=== PATIENT | male | born 1960 | race Caucasian/White ===

== ENCOUNTER 2016-11-08 10:50 | Emergency (ER) | payer MEDICARE, OTHER ==
[~2016-11-08] VITALS: Ht 167.6 cm; Wt 87.5 kg
[~2016-11-08 10:50] MED LIST: ASPI325T32 PO; CLON0.5T4 PO; LEVEM SC; LISI20TA11 PO; METO100T13 PO; PANT40TA3; PIOG1TAB9; SIMV40TA2 PO
[2016-11-08 10:55] VITALS: Ht 167.6 cm; Wt 87.5 kg
--- NOTE | 2016-11-08 11:42 | ERD ---
ER Documentation Chief Complaint Date/Time DATE: 11/08/16 TIME: 11:39 Chief Complaint nontraumtic l knee pain for past 2 days, "my knee gave out" -swelling, HPI Patient is a 56-year-old male who presents with 1 day of sudden onset, intermittent, sharp lateral lower left leg pain causing his leg to "give out" on numerous occasions while he tries to walk. The patient denies weakness to the leg, states that he is able to take several normal steps before he feels a sharp shooting pain and the leg gives out. He denies trauma, numbness, swelling. Patient denies any symptoms in the upper extremity. Patient started using a cane to help with ambulation. He currently has no pain in the leg and denies any weakness or numbness. ROS All systems reviewed and are negative except as per history of present illness. Medications Home Meds Reported Medications Insulin Detemir* (Levemir*) 100 U/Ml Vial, 40 UNIT SC DAILY, VIAL 07/28/14 Aspirin* (Aspirin* EC) 325 Mg Tab, 325 MG PO DAILY, TAB 07/28/14 Simvastatin* (Zocor*) 40 Mg Tablet, 40 MG PO HS, TAB 07/28/14 Metoprolol Succinate* (Toprol XL*) 100 Mg Tab.sr.24h, 100 MG PO DAILY, TAB 07/28/14 Lisinopril* (Lisinopril*) 20 Mg Tablet, 20 MG PO DAILY, TAB 07/28/14 Clonazepam* (Clonazepam*) 0.5 Mg Tablet, 0.5 MG PO QHS Y for ANXIETY, TAB 07/28/14 Pioglitazone Hcl-Metformin Hcl (Actoplus Met) 1 Tab Tablet 09/03/09 Pantoprazole* (Protonix*) 40 Mg Tablet. 09/03/09 Allergies Allergies: Coded Allergies: No Known Allergies (Verified Allergy, Unknown, 07/28/14) PMhx/Soc Past medical history: Diabetes, coronary artery disease, hypertension, hyperlipidemia Past surgical history: 4 coronary stents, cholecystectomy Social history: Occasional alcohol, no tobacco. History of Surgery: No Anesthesia Reaction: No Hx Neurological Disorder: No Hx Respiratory Disorders: No Hx Cardiac Disorders: Yes (HTN) Hx Psychiatric Problems: No Hx Miscellaneous Medical Probl: No Hx Alcohol Use: Yes Hx Substance Use: No Hx Tobacco Use: No FmHx Family History: coronary disease, diabetes Physical Exam Vitals Vital Signs Date Time Temp Pulse Resp B/P Pulse Ox O2 Delivery O2 Flow Rate FiO2 11/08/16 10:55 98.7 92 18 164/94 98 Physical Exam Const: Alert, no acute distress Head: Atraumatic Eyes: Normal Conjunctiva, no pallor, no icterus ENT: Normal External Ears, Nose and Mouth. Mucous membranes moist Neck: Full range of motion..~ No meningismus. Resp: Clear to auscultation bilaterally, no wheezes, no rales Cardio: Regular rate and rhythm, no murmurs Abd: Soft, non tender, non distended. Normal bowel sounds Skin: No petechiae or rashes Back: No midline or flank tenderness Ext: No cyanosis, or edema, no calf tenderness, no point tenderness in the left knee or lower leg. No ulcers on the foot. 2+ DP pulse, 2 second cap refill all toes. Neur: Awake and alert, strength 5 out of 5 in all muscle groups in the left lower extremity and left upper extremity. 2+ patellar reflex. Cranial nerves II through XII intact bilaterally. Psych: Normal Mood and Affect Results 24 hrs Laboratory Tests Test 11/08/16 11:52 Bedside Glucose 293mg/dL Procedures/MDM MDM: Patient is a 56-year-old male who reports intermittent shooting pain in his lower leg causing his leg to give out. Episodes are transient, and he denies any persistent weakness of the leg. On exam there is no weakness or numbness. There is no reproducible pain or tenderness. There are no signs of DVT. He has normal neurovascular exam. There are no signs of infection. Patient was observed to ambulate without difficulty using a cane at this time. I believe that he may be having a nerve impingement causing his symptoms. Other consideration is intra-articular pain of the knee causing his leg to give out. His knee exam at this time is unremarkable, so x-ray is not deemed to be necessary, and there is no history of trauma. Patient is an insulin-dependent diabetic, and has elevated glucose. I recommended checking his BMP to look for other electrolyte abnormalities, but the patient refused to wait for this test. He states his blood sugars always over 250 and often as high as 400 to 500. I have advised him to follow-up with his PMD tomorrow, to use an Tim bandage and cane and to take caution with ambulation. There is no indication of a central nervous system because of his gait abnormality. Although his history of poorly controlled diabetes raises possibility of peripheral neuropathy, there are does not appear to be sensory deficit on exam. Departure Diagnosis: Primary Impression: Knee pain Laterality: left Chronicity: acute Qualified Code: M25.562 - Acute pain of left knee Additional Impressions: Gait difficulty Hyperglycemia Condition: Stable RAFAELA ROBISON MD November 08, 2016 11:42
== END 2016-11-08 12:42 | disposition home or self-care (01) ==
LOC: FTE 10:50
DX: M25.562 Pain in left knee (principal); R26.9 Unspecified abnormalities of gait and mobility; E11.65 Type 2 diabetes mellitus with hyperglycemia; I25.10 Atherosclerotic heart disease of native coronary artery without angina pectoris; I10 Essential (primary) hypertension; Z79.4 Long term (current) use of insulin; Z79.82 Long term (current) use of aspirin; Z79.84 Long term (current) use of oral hypoglycemic drugs; Z98.61 Coronary angioplasty status
CPT/HCPCS: 82962; 99282

== ENCOUNTER 2017-04-03 18:40 | Observation (INO) | payer MEDICARE, OTHER ==
[~2017-04-03] VITALS: Ht 162.6 cm; Wt 86.3 kg
[~2017-04-03 18:40] MED LIST changes: +METO-336 PO; -METO100T13 PO
[2017-04-03] MEDS ORDERED: ONDANSETRON (ODT) 4 MG TAB ODT STA (18:42)
[2017-04-03] MEDS ORDERED: HYDROmorphONE 2 MG/ML SYG IM STA (18:42)
--- NOTE | 2017-04-03 19:35 | RADRPT ---
PROCEDURE: XR Chest. CLINICAL INDICATION: Trauma due to a fall. Chest pain. TECHNIQUE: Single frontal view. COMPARISON: 07/28/2014. FINDINGS: The lungs are clear. The heart size is normal. There is no pleural effusion. There is no pneumothorax. IMPRESSION: 1. Normal chest radiograph. 2. No change from 07/28/2014. RPTAT: QQ .Dallin Virk MD, MD Date Time Electronically viewed and signed by .Dallin Virk MD, MD on 04/03/2017 19:35 .R/
--- NOTE | 2017-04-03 19:48 | RADRPT ---
PROCEDURE: CT Brain without contrast. CLINICAL INDICATION: Trauma due to a fall. TECHNIQUE: A CT of the brain without contrast was performed utilizing axial sections from the skul l base through the vertex. The patient was scanned without intravenous contrast enhancement. Sagitta l and coronal reformatted images were obtained using the data from the axial images. Total exam DLP is 630.20 mGy-cm. CTDIvol is 42.30 mGy. One or more of the following dose reduction techniques we re used: Automated exposure control, adjustment of the mA and/or kV according to patient size, use o f iterative reconstruction technique. COMPARISON: None available FINDINGS: There is normal berkowitz-white matter differentiation. The ventricles and cisterns are normal. There is no intracranial hemorrhage or space-occupying lesion. There is no skull fracture or lytic lesion. IMPRESSION: 1. Normal noncontrast CT scan of the brain. 2. No intracranial hemorrhage. RPTAT: QQ .Dallin Virk MD, MD Date Time Electronically viewed and signed by .Dallin Virk MD, on 04/03/2017 19:48 .R/
--- NOTE | 2017-04-03 19:52 | RADRPT ---
PROCEDURE: CT Cervical Spine without contrast. CLINICAL INDICATION: Trauma due to a fall. Neck pain. TECHNIQUE: Helical axial sections were obtained through the cervical spine without intravenous con trast enhancement. Sagittal and coronal reformatted images were accomplished using the data from th e axial images. Total exam DLP is 467.05 mGy-cm. CTDIvol is 22.18 mGy. One or more of the followi ng dose reduction techniques were used: Automated exposure control, adjustment of the mA and/or kV a ccording to patient size, use of iterative reconstruction technique. COMPARISON: No prior studies are available for comparison. FINDINGS: There is normal stature and alignment of the vertebrae. There is no fracture. There are degenerative changes with disc space narrowing and osteophytes at C6-7. There is mild bila teral bony foraminal stenosis at C6-7. There is no lytic or blastic lesion. There is gas dissecting along tissue planes in the soft tissues of the left side of the neck and in the epidural space in the inferior cervical region. This is probably due to a pneumomediastinum or l eft pneumothorax. Correlation with CT scan of chest advised. IMPRESSION: 1. Degenerative changes at C6-7. 2. No fracture. 3. Gas in the soft tissues which may be due to pneumomediastinum or left pneumothorax. Correlation with CT scan of chest advised. RPTAT: QQ .Dallin Virk MD, Date Time Electronically viewed and signed by .Dallin Virk MD, on 04/03/2017 19:51 .R/
--- NOTE | 2017-04-03 19:58 | RADRPT ---
PROCEDURE: CT Abdomen and Pelvis without contrast. CLINICAL INDICATION: Trauma. Abdominal and pelvic pain. TECHNIQUE: CT scan of the abdomen and pelvis without contrast was performed. Coronal and sagittal reformatted images were obtained from the axial source images. Images were reviewed on a high-resolu tion PACS workstation. Total exam DLP is 1206.00 mGy-cm. CTDIvol is 20.12 mGy. One or more of the following dose reduction techniques were used: Automated exposure control, adjustment of the mA and/ or kV according to patient size, use of iterative reconstruction technique. COMPARISON: CT scan of the abdomen and pelvis dated 07/28/2014. FINDINGS: There is a very small left pneumothorax. The lung bases are normal. There is no pleural effusion. Ga s is present in the soft tissues of the left chest wall extending along the left paraspinal muscles inferiorly. There is an acute fracture of the left eighth rib posteriorly. The liver is normal in size and diffusely decreased in attenuation. There is no focal hepatic lesio n. The gallbladder and bile ducts are normal. The spleen is normal in size. There is no focal splenic lesion. Both adrenals are normal with no enlargement or mass. The pancreas is unremarkable with no mass or evidence of pancreatitis. There is no renal mass or hydronephrosis. There is no renal calculus or ureteral calculus. The abdominal aorta is not dilated. There is calcification in the aorta consistent with atherosclero sis. There is no retroperitoneal lymphadenopathy or mass. There is no pelvic lymphadenopathy or mass. The bladder is distended. The distal ureters are normal. The periappendiceal region is unremarkable with no evidence of appendicitis. The bowel and mesentery are normal. There is no free fluid or free gas. There are mild degenerative changes of the spine. The eighth rib fracture is noted. The osseous stru ctures are otherwise unremarkable with no other fracture or lytic lesion. IMPRESSION: 1. Very small left pneumothorax. Correlation with CT scan of chest advised. 2. Gas in the left chest wall and along the paraspinal muscles. 3. Acute fracture of the left eighth rib posteriorly. 4. Atherosclerosis. 5. Distended urinary bladder. 6. Mild degenerative changes of the spine. RPTAT: QQ .Dallin Virk MD, Date Time Electronically viewed and signed by .Dallin Virk MD, on 04/03/2017 19:58 .R/
[2017-04-03] MEDS ORDERED: HYDROmorphONE 1 MG/ML SYG IV STA ×2 (20:11→23:36)
[2017-04-03 21:05] VITALS: TEMP 98.5
[2017-04-03] MEDS ORDERED: morphine 4 MG/ML VIAL IV STA (21:21)
--- NOTE | 2017-04-03 22:59 | RADRPT ---
PROCEDURE: CT CHEST WITHOUT CONTRAST April 03, 2017 at 09:33 p.m. CLINICAL INDICATION: 57-year-old male with trauma. TECHNIQUE: The study was performed utilizing a GE [employer] VCT 64-slice CT scanner. Direct axia l sections were obtained through the chest without the use of intravenous contrast material. Sagitt al and coronal re-formations were obtained. One or more of the following dose reduction techniques w ere utilized: automated exposure control, adjustment of the mA and/or kV according to patient's size or use of iterative reconstruction technique. The images were reviewed on a PACS workstation. CTD /vol = 13.8 mGy; Total Exam DLP = 459.1 mGy-cm. COMPARISON: CT abdomen/pelvis April 03, 2017 at 07:39 p.m. FINDINGS: The aorta is mildly calcified but without aneurysmal dilatation. Marked coronary artery calcificatio ns are visualized. There are small lymph nodes seen within the mediastinum which are not pathologic by size criteria. There is a small inferior pneumomediastinum. There is a minimal left-sided pneumo thorax. There is no evidence for an infiltrate. There is a posterior left eighth rib fracture. There is extensive subcutaneous gas within the left lower neck and along the left posterolateral chest wa ll. Mild degenerative changes are seen within the spine. Scans through the upper abdomen reveals that the upper liver is unremarkable. The adrenal glands hav e a normal appearance. The upper kidneys are without evidence for obstruction. IMPRESSION: 1. Posterior left eighth rib fracture. 2. Minimal left-sided pneumothorax. 3. Pneumomediastinum. 4. Extensive left lower neck and left posterolateral chest wall subcutaneous emphysema. 5. Marked coronary artery calcifications. 6. Mild degenerative changes within the spine. .Aris Kapoor MD, MD Date Time Electronically viewed and signed by .Aris Kapoor MD, MD on 04/03/2017 22:59 .M/
--- NOTE | 2017-04-03 23:22 | ERA ---
ER Documentation Chief Complaint Date/Time DATE: 04/03/17 TIME: 23:20 Chief Complaint pt had mechanical fall 1 hour ago , hit head, no loc back pain 02/04 HPI Patient is a 57-year-old male with coronary disease and diabetes who presents with a slip and fall in the shower. Hit the back of his head. He is complaining of left-sided back pain. He has no loss of consciousness and no vomiting. He was ambulatory at scene. The fall happened 1 hour prior to arrival. He tried Motrin for pain. Upon review of old medical records this is the patient's eighth visit to the ER since 2006. He does not remember the name of his primary doctor. ROS All systems reviewed and are negative except as per history of present illness. Medications Home Meds Reported Medications Insulin Detemir* (Levemir*) 100 U/Ml Vial, 40 UNIT SC DAILY, VIAL 07/28/14 Aspirin* (Aspirin* EC) 325 Mg Tab, 325 MG PO DAILY, TAB 07/28/14 Simvastatin* (Zocor*) 40 Mg Tablet, 40 MG PO HS, TAB 07/28/14 Metoprolol Succinate* (Toprol XL*) 100 Mg Tab.sr.24h, 100 MG PO DAILY, TAB 07/28/14 Lisinopril* (Lisinopril*) 20 Mg Tablet, 20 MG PO DAILY, TAB 07/28/14 Clonazepam* (Clonazepam*) 0.5 Mg Tablet, 0.5 MG PO QHS Y for ANXIETY, TAB 07/28/14 Pioglitazone Hcl-Metformin Hcl (Actoplus Met) 1 Tab Tablet 09/03/09 Pantoprazole* (Protonix*) 40 Mg Tablet. 09/03/09 Allergies Allergies: Coded Allergies: No Known Allergies (Verified Allergy, Unknown, 07/28/14) PMhx/Soc Anesthesia Reaction: No Hx Neurological Disorder: No Hx Respiratory Disorders: No Hx Psychiatric Problems: No Hx Alcohol Use: Yes Hx Substance Use: No Hx Tobacco Use: No Smoking Status: Never smoker FmHx Family History: No diabetes Physical Exam Vitals Vital Signs Date Time Temp Pulse Resp B/P Pulse Ox O2 Delivery O2 Flow Rate FiO2 04/03/17 23:05 86 20 151/98 99 Room Air 04/03/17 21:05 98.5 101 18 140/72 97 Room Air 04/03/17 20:18 98.5 98 18 120/66 99 Room Air 04/03/17 18:43 98.6 107 17 144/88 100 Physical Exam Const: Moderate distress secondary to pain Head: Atraumatic Eyes: Normal Conjunctiva ENT: Normal External Ears, Nose and Mouth. Neck: Full range of motion..~ No meningismus. Resp: Clear to auscultation bilaterally Cardio: Regular rate and rhythm, no murmurs Abd: Soft, non tender, non distended. Normal bowel sounds Skin: Abrasion of the back of the scalp Back: Pain with palpation the left back Ext: No cyanosis, or edema Neur: Awake and alert Psych: Normal Mood and Affect Results 24 hrs Current Medications Medications (Trade) Dose Ordered Sig/Ishmael Route PRN Reason Start Time Stop Time Status Last Admin Dose Admin Hydromorphone HCl (Dilaudid) 2 mg ONCE STAT IM 04/03/17 18:42 04/03/17 18:44 DC 04/03/17 18:53 Ondansetron HCl (Zofran Odt) 4 mg ONCE STAT ODT 04/03/17 18:42 04/03/17 18:44 DC 04/03/17 18:53 Hydromorphone HCl (Dilaudid) 1 mg ONCE STAT IV 04/03/17 20:11 04/03/17 20:12 DC 04/03/17 20:18 Morphine Sulfate (morphine) 4 mg ONCE STAT IV 04/03/17 21:21 04/03/17 21:22 DC 04/03/17 21:27 Ondansetron HCl (Zofran Inj) 4 mg BRIDGE ORDER PRN IV NAUSEA AND/OR VOMITING 04/03/17 23:30 04/04/17 23:29 Acetaminophen (Tylenol Tab) 650 mg ER BRIDGE PRN PO MILD PAIN/FEVER 04/03/17 23:30 04/04/17 23:29 Procedures/MDM CT brain negative per radiology. CT cervical spine negative per radiology. CT chest shows left-sided rib fracture with small pneumothorax and pneumomediastinum with subcutaneous air per radiology. CT abdomen pelvis shows small pneumothorax per radiology. Chest x-ray negative per radiology. Laboratory studies are pending at this time. Patient is a 57-year-old male presents with a slip and fall. The patient has a left-sided rib fracture with pneumothorax and subcutaneous air. The patient does not require chest tube at this time given the small size of the pneumothorax. The patient will need admission to the hospital and has previously been admitted to Dr. Villalpando and has Medicare and therefore I will admit the patient to Dr. Villalpando for continuity of care. The patient will be admitted to a medical surgical bed. He will be placed on supplemental oxygen. The patient was given Dilaudid and morphine for pain. Critical Care: Time: 35 minutes excluding all billable procedures. Treatments/Evaluations: Close monitoring and treatment of unstable vital signs, cardiorespiratory, and neurologic status, while maintaining tight balance of fluid, respiratory, and cardiac interventions. Departure Diagnosis: Primary Impression: Subcutaneous air Qualified Code: T79.7XXA - Subcutaneous emphysema, initial encounter Additional Impressions: Pneumothorax Qualified Code: S27.0XXA - Traumatic pneumothorax, initial encounter Pneumomediastinum Rib fracture Qualified Code: S22.32XA - Closed fracture of one rib of left side, initial encounter Fall Qualified Code: W19.XXXA - Fall, initial encounter Condition: GUILLERMINA Orr MD Apr 03, 2017 23:22
[2017-04-03] MEDS ORDERED: ACETAMINOPHEN 325 MG TAB PO PRN (23:30)
[2017-04-03] MEDS ORDERED: ONDANSETRON 4 MG INJ IV PRN (23:30)
[2017-04-04 00:10] VITALS: BP 132/78; PULSE 105; RESP 20; Ht 162.6 cm; Wt 86.3 kg
[2017-04-04] MEDS ORDERED: ACETAMINOPHEN 325 MG TAB PO PRN (01:00)
[2017-04-04] MEDS ORDERED: clonAZEPAM 0.5 MG TAB PO PRN (01:00)
[2017-04-04] MEDS ORDERED: DEXTROSE 50% 50 ML SYRINGE IV PRN ×2 (01:00)
[2017-04-04] MEDS ORDERED: GLUCAGON 1 MG INJ IM PRN (01:00)
[2017-04-04] MEDS ORDERED: GLUCOSE GEL 15 GRAM TUBE PO PRN ×2 (01:00)
[2017-04-04] MEDS ORDERED: GLUCOSE GEL 15 GRAM TUBE BUCCAL PRN (01:00)
[2017-04-04] MEDS ORDERED: ONDANSETRON 4 MG INJ IV PRN (01:00)
[2017-04-04 01:21] LABS: BASOPHIL # 0.1 10^3/ul (0.0-0.1); BASOPHILS % 0.5 % (0.0-2.0); EOSINOPHILS # 0.1 10^3/ul (0.0-0.5); EOSINOPHILS % 0.4 % (0.0-7.0); HEMATOCRIT 42.1 % (42.0-52.0); HEMOGLOBIN 14.5 g/dl (14.0-18.0); LYMPHOCYTES # 2.5 10^3/ul (0.8-2.9); LYMPHOCYTES % 15.5 % (15.0-51.0); MEAN CORPUSCULAR HGB CONC 34.4 g/dl (32.0-37.0); MEAN CORPUSCULAR VOLUME 78.4 fl (82.0-101.0); MEAN PLATELET VOLUME 11.3 fl (7.4-10.4); MONOCYTES % 6.4 % (0.0-11.0); NEUTROPHIL # 12.3 10^3/ul (1.6-7.5); NEUTROPHILS % 76.6 % (39.0-77.0); PLATELET COUNT 305 10^3/UL (140-415); RED BLOOD COUNT 5.37 10^6/ul (4.70-6.10); RED CELL DISTRIBUTION WIDTH 13.2 % (11.5-14.5); WHITE BLOOD COUNT 16.1 10^3/ul (4.8-10.8)
[2017-04-04 01:40] LABS: INR 0.91; PROTIME 12.2 Sec (12.2-14.2)
[2017-04-04 01:49] LABS: ALANINE AMINOTRANSFERASE 47 IU/L (13-69); ALBUMIN 4.4 g/dl (3.3-4.9); ALBUMIN/GLOBULIN RATIO 1.29; ALKALINE PHOSPHATASE 99 IU/L (42-121); ANION GAP 20 (8-16); ASPARTATE AMINO TRANSFERASE 26 IU/L (15-46); BILIRUBIN,INDIRECT 0.3 mg/dl (0-1.1); BILIRUBIN,TOTAL 0.3 mg/dl (0.2-1.3); BLOOD UREA NITROGEN 21 mg/dl (7-20); CALCIUM 9.1 mg/dl (8.4-10.2); CARBON DIOXIDE 20 mmol/L (21-31); CHLORIDE 100 mmol/L (97-110); CREATININE 1.18 mg/dl (0.61-1.24); POTASSIUM 5.3 mmol/L (3.5-5.1); TOTAL PROTEIN 7.8 g/dl (6.1-8.1)
[2017-04-04] MEDS: ACCU-CHEK XX SCH ×2 (02:00)
[2017-04-04] MEDS ORDERED: INSULIN ASPART [NOVOLOG] 3 ML PEN SC ONE ×2 (02:00→02:30)
[2017-04-04] MEDS ORDERED: SOD CHLORIDE 0.45% 1,000 ML IV SCH (03:00)
[2017-04-04 03:31] LABS: SODIUM 135 mmol/L (135-144)
[2017-04-04 03:32] LABS: GLUCOSE 498 mg/dl (70-220)
[2017-04-04 03:34] LABS: TROPONIN-I < 0.012 ng/ml (0.00-0.12)
[2017-04-04] MEDS: morphine 2 MG INJ IV PRN (03:56)
[2017-04-04 08:00] VITALS: BP 145/72; RESP 16
[2017-04-04] MEDS: ASPIRIN (EC) 325 MG TAB PO SCH (08:50)
[2017-04-04] MEDS: PANTOPRAZOLE (EC) 40 MG TAB PO SCH (08:50)
[2017-04-04] MEDS: METOPROLOL (XL) 100 MG TAB PO SCH (08:51)
[2017-04-04] MEDS: HYDROCODONE/APAP (10/325) TAB PO PRN ×3 (08:51→16:49)
[2017-04-04] MEDS: LISINOPRIL 20 MG TAB PO SCH (08:51)
[2017-04-04] MEDS: INSULIN ASPART [NOVOLOG] 3 ML PEN SC SCH ×7 (08:54→20:56)
[2017-04-04] MEDS: INSULIN DETEMIR [LEVEMIR] 3ML CART SC SCH ×2 (08:55→20:55)
[2017-04-04 11:10] LABS: CALCIUM 9.3 mg/dl (8.4-10.2); CREATININE 1.05 mg/dl (0.61-1.24); POTASSIUM 4.6 mmol/L (3.5-5.1)
--- NOTE | 2017-04-04 13:57 | HP ---
Date/Time of Note Date/Time of Note DATE: 04/04/17 TIME: 13:16 Assessment/Plan VTE Prophylaxis VTE Prophylaxis Intervention: SCD's Lines/Catheters IV Catheter Type (from Nrs): Saline Lock Assessment/Plan Assessment/Plan - Minimal left-sided Pneumothorax: Traumatic pneumothorax, initial encounter - pulmonary consult- Dr Bradford notified - monitor VS - cxr- today- fu - Pneumomediastinum - per plumonary - Posterior left eighth rib fracture. - pulmonary consult - will get cardiology consult- Dr Anderson notified - 2 D ECHO- FU - Extensive left lower neck and left posterolateral chest wall subcutaneous emphysema. - Leukocytosis possibly sec to stress reaction -monitor CBC - VS - sp Fall - Coronary Artery Disease - HTN - Hyperlipidemia - GERD - Plan of care dw Dr Villalpando/staff/patient/ HPI/ROS Admit Date/Time Admit Date/Time Apr 03, 2017 at 23:16 ROS pt had mechanical fall 1 hour ago , hit head, no loc back pain 02/04 HPI Patient is a 57-year-old male with pas t medical Hx of coronary disease and diabetes is admitted sp slip and fall in the shower yesterday at home.Per patient he hit it the back of his head and had left-sided back pain- better than before. He denied loosing any consciousness no vomiting. Patient stated he is able to walk to the bathroom without oxygen Upon review of old medical records this is the patient's eighth visit to the ER since 2006. at bed side- all Qs answered. Patient denies shortness of breath, chest pain, palpitations, dizziness, headache, focal weakness, abdominal pain, nausea vomitting, ROS All systems reviewed and are negative except as per history of present illness. Allergies No Known Allergies (Verified Allergy, Unknown, 07/28/14) Respiratory: no complaints Cardiovascular: no complaints Gastrointestinal: no complaints PMH/Family/Social Past Medical History PMhx/Soc Anesthesia Reaction: No Hx Neurological Disorder: No Hx Respiratory Disorders: No Hx Psychiatric Problems: No Hx Alcohol Use: Yes Hx Substance Use: No Hx Tobacco Use: No Smoking Status: Never smoker FmHx Medical History: coronary artery disease, diabetes, GERD, high cholesterol, hypertension Social History Smoking Status: Never smoker Exam/Review of Systems Vital Signs Vitals Vital Signs Date Time Temp Pulse Resp B/P Pulse Ox O2 Delivery O2 Flow Rate FiO2 04/04/17 08:00 98.6 99 16 145/72 98 04/04/17 00:10 Room Air Intake and Output 04/03/17 04/03/17 04/04/17 15:00 23:00 07:00 Intake Total 900 ml Output Total 1400 ml Balance -500 ml Exam Constitutional: alert, oriented, well developed Head: other (Abrasion of the back of the scalp) Respiratory: diminished breath sounds Cardiovascular: nl pulses, regular rate and rhythm Gastrointestinal: non-tender, soft Musculoskeletal: nl extremities to inspection, other (Pain with palpation over left back) Extremities: normal pulses Neurological: nl mental status, nl speech Labs Result Diagram: 04/04/17 0052 04/04/17 1034 Medications Medications Current Medications Aspirin (Ecotrin) 325 mg DAILY PO Last administered on 04/04/17 08:50; Admin Dose 325 MG; Start 04/04/17 at 09:00 Clonazepam (Klonopin) 0.5 mg QHS PRN PO ANXIETY; Start 04/04/17 at 01:00 Insulin Detemir (Levemir) 40 unit BID SC Last administered on 04/04/17 08:55; Admin Dose 40 UNIT; Start 04/04/17 at 09:00 Lisinopril (Zestril) 20 mg DAILY PO Last administered on 04/04/17 08:51; Admin Dose 20 MG; Start 04/04/17 at 09:00 Metoprolol Succinate (Toprol Xl) 100 mg DAILY PO Last administered on 08:51; Admin Dose 100 MG; Start 04/04/17 at 09:00 Pantoprazole (Protonix Tab) 40 mg DAILY PO Last administered on 04/04/17 08:50 ; Admin Dose 40 MG; Start 04/04/17 at 09:00 Atorvastatin Calcium (Lipitor) 20 mg HS PO ; Start 04/04/17 at 21:00 Miscellaneous Information 1 ea NOTE XX ; Start 04/04/17 at 01:00 Glucose (Glutose) 15 gm Q15M PRN PO DECREASED GLUCOSE; Start 04/04/17 at 01:00 Glucose (Glutose) 22.5 gm Q15M PRN PO DECREASED GLUCOSE; Start 04/04/17 at 01: 00 Dextrose (D50w Syringe) 25 ml Q15M PRN IV DECREASED GLUCOSE; Start 04/04/17 at 01:00 Dextrose (D50w Syringe) 50 ml Q15M PRN IV DECREASED GLUCOSE; Start 04/04/17 at 01:00 Glucagon (Glucagen) 1 mg Q15M PRN IM DECREASED GLUCOSE; Start 04/04/17 at 01:00 Glucose (Glutose) 15 gm Q15M PRN BUCCAL DECREASED GLUCOSE; Start 04/04/17 at 01 :00 Acetaminophen (Tylenol Tab) 650 mg Q6H PRN PO PAIN AND OR ELEVATED TEMP; Start 04/04/17 at 01:00 Acetaminophen/ Hydrocodone Bitart ([place] (10/325)) 1 tab Q4H PRN PO PAIN Last administered on 04/04/17 12:59; Admin Dose 1 TAB; Start 04/04/17 at 01:00 Morphine Sulfate (morphine) 2 mg Q4H PRN IV pain Last administered on 03:56; Admin Dose 2 MG; Start 04/04/17 at 01:00 Ondansetron HCl (Zofran Inj) 4 mg Q6H PRN IV NAUSEA AND/OR VOMITING; Start 04/04/17 at 01:00 Diagnostic Test (Pha) (Accu-Chek) 1 ea 02 XX ; Start 04/04/17 at 02:00 Diagnostic Test (Pha) (Accu-Chek) 1 ea 02 XX ; Start 04/04/17 at 02:00 Procedures Procedures PROCEDURE: CT CHEST WITHOUT CONTRAST April 03, 2017 at 09:33 p.m. CLINICAL INDICATION: 57-year-old male with trauma. TECHNIQUE: The study was performed utilizing a [employer] 64-slice CT scanner. Direct axial sections were obtained through the chest without the use of intravenous contrast material. Sagittal and coronal re-formations were obtained. One or more of the following dose reduction techniques were utilized: automated exposure control, adjustment of the mA and/or kV according to patient' s size or use of iterative reconstruction technique. The images were reviewed on a PACS workstation. CTD/vol = 13.8 mGy; Total Exam DLP = 459.1 mGy-cm. COMPARISON: CT abdomen/pelvis April 03, 2017 at 07:39 p.m. FINDINGS: The aorta is mildly calcified but without aneurysmal dilatation. Marked coronary artery calcifications are visualized. There are small lymph nodes seen within the mediastinum which are not pathologic by size criteria. There is a small inferior pneumomediastinum. There is a minimal left-sided pneumothorax. There is no evidence for an infiltrate. There is a posterior left eighth rib fracture. There is extensive subcutaneous gas within the left lower neck and along the left posterolateral chest wall. Mild degenerative changes are seen within the spine. Scans through the upper abdomen reveals that the upper liver is unremarkable. The adrenal glands have a normal appearance. The upper kidneys are without evidence for obstruction. IMPRESSION: 1. Posterior left eighth rib fracture. 2. Minimal left-sided pneumothorax. 3. Pneumomediastinum. 4. Extensive left lower neck and left posterolateral chest wall subcutaneous emphysema. 5. Marked coronary artery calcifications. 6. Mild degenerative changes within the spine. PROCEDURE: CT Abdomen and Pelvis without contrast. CLINICAL INDICATION: Trauma. Abdominal and pelvic pain. TECHNIQUE: CT scan of the abdomen and pelvis without contrast was performed. Coronal and sagittal reformatted images were obtained from the axial source images. Images were reviewed on a high-resolution PACS workstation. Total exam DLP is 1206.00 mGy-cm. CTDIvol is 20.12 mGy. One or more of the following dose reduction techniques were used: Automated exposure control, adjustment of the mA and/or kV according to patient size, use of iterative reconstruction technique. COMPARISON: CT scan of the abdomen and pelvis dated 07/28/2014. FINDINGS: There is a very small left pneumothorax. The lung bases are normal. There is no pleural effusion. Gas is present in the soft tissues of the left chest wall extending along the left paraspinal muscles inferiorly. There is an acute fracture of the left eighth rib posteriorly. The liver is normal in size and diffusely decreased in attenuation. There is no focal hepatic lesion. The gallbladder and bile ducts are normal. The spleen is normal in size. There is no focal splenic lesion. Both adrenals are normal with no enlargement or mass. The pancreas is unremarkable with no mass or evidence of pancreatitis. There is no renal mass or hydronephrosis. There is no renal calculus or ureteral calculus. The abdominal aorta is not dilated. There is calcification in the aorta consistent with atherosclerosis. There is no retroperitoneal lymphadenopathy or mass. There is no pelvic lymphadenopathy or mass. The bladder is distended. The distal ureters are normal. The periappendiceal region is unremarkable with no evidence of appendicitis. The bowel and mesentery are normal. There is no free fluid or free gas. There are mild degenerative changes of the spine. The eighth rib fracture is noted. The osseous structures are otherwise unremarkable with no other fracture or lytic lesion. IMPRESSION: 1. Very small left pneumothorax. Correlation with CT scan of chest advised. 2. Gas in the left chest wall and along the paraspinal muscles. 3. Acute fracture of the left eighth rib posteriorly. 4. Atherosclerosis. 5. Distended urinary bladder. 6. Mild degenerative changes of the spine. PROCEDURE: CT Brain without contrast. CLINICAL INDICATION: Trauma due to a fall. TECHNIQUE: A CT of the brain without contrast was performed utilizing axial sections from the skull base through the vertex. The patient was scanned without intravenous contrast enhancement. Sagittal and coronal reformatted images were obtained using the data from the axial images. Total exam DLP is 630.20 mGy-cm. CTDIvol is 42.30 mGy. One or more of the following dose reduction techniques were used: Automated exposure control, adjustment of the mA and/or kV according to patient size, use of iterative reconstruction technique. COMPARISON: None available FINDINGS: There is normal berkowitz-white matter differentiation. The ventricles and cisterns are normal. There is no intracranial hemorrhage or space-occupying lesion. There is no skull fracture or lytic lesion. IMPRESSION: 1. Normal noncontrast CT scan of the brain. 2. No intracranial hemorrhage. PROCEDURE: CT Cervical Spine without contrast. CLINICAL INDICATION: Trauma due to a fall. Neck pain. TECHNIQUE: Helical axial sections were obtained through the cervical spine without intravenous contrast enhancement. Sagittal and coronal reformatted images were accomplished using the data from the axial images. Total exam DLP is 467.05 mGy-cm. CTDIvol is 22.18 mGy. One or more of the following dose reduction techniques were used: Automated exposure control, adjustment of the mA and/or kV according to patient size, use of iterative reconstruction technique. COMPARISON: No prior studies are available for comparison. FINDINGS: There is normal stature and alignment of the vertebrae. There is no fracture. There are degenerative changes with disc space narrowing and osteophytes at C6- 7. There is mild bilateral bony foraminal stenosis at C6-7. There is no lytic or blastic lesion. There is gas dissecting along tissue planes in the soft tissues of the left side of the neck and in the epidural space in the inferior cervical region. This is probably due to a pneumomediastinum or left pneumothorax. Correlation with CT scan of chest advised. IMPRESSION: 1. Degenerative changes at C6-7. 2. No fracture. 3. Gas in the soft tissues which may be due to pneumomediastinum or left pneumothorax. Correlation with CT scan of chest advised. PROCEDURE: XR Chest. CLINICAL INDICATION: Trauma due to a fall. Chest pain. TECHNIQUE: Single frontal view. COMPARISON: 07/28/2014. FINDINGS: The lungs are clear. The heart size is normal. There is no pleural effusion. There is no pneumothorax. IMPRESSION: 1. Normal chest radiograph. 2. No change from 07/28/2014. LEONARDO DAVEY Apr 04, 2017 13:27
[2017-04-04 14:00] VITALS: BP 120/71; RESP 18
[2017-04-04 14:20] LABS: CHOL/HDL RATIO 3.7 RATIO
[2017-04-04] MEDS: DOCUSATE SODIUM 100 MG CAP PO SCH ×2 (14:40→20:54)
--- NOTE | 2017-04-04 16:14 | CONS ---
Date/Time of Note Date/Time of Note DATE: 04/04/17 TIME: 16:10 Assessment/Plan Assessment/Plan Additional Assessment/Plan IMP: 1. Small left PTX/subQ air--s/p rib fx after a fall. No evidence of flail chest. 2. s/p fall RECS: 1. No need for chest tube 2. High FiO2 for nitrogen washout x 24 hours 3. Incentive spirometry 4. Pain control Consultation Date/Type/Reason Admit Date/Time Apr 03, 2017 at 23:16 Type of Consultation: Pulm Hx of Present Illness Briefly, this is a 57-year-old man with HTN, HL, GERD, CAD, who slipped in the shower and fell sustaining a left 8th rib fracture with associated subQ emphysema and a small left anterior PTX. Constitutional: no complaints Eyes: no complaints ENT: no complaints Respiratory: no complaints Cardiovascular: no complaints Gastrointestinal: no complaints Genitourinary: no complaints Musculoskeletal: back pain Skin: no complaints Neurologic: no complaints Endocrine: no complaints Lymphatic: no complaints Psychological: no complaints Immunologic: no complaints Past Medical History Medical History: coronary artery disease, diabetes, GERD, high cholesterol, hypertension Social History Alcohol Use: none Smoking Status: Never smoker Drug Use: none Exam/Review of Systems Vital Signs Vitals Vital Signs Date Time Temp Pulse Resp B/P Pulse Ox O2 Delivery O2 Flow Rate FiO2 04/04/17 14:00 98.5 83 18 120/71 95 04/04/17 00:10 Room Air Intake and Output 04/03/17 04/03/17 04/04/17 15:00 23:00 07:00 Intake Total 900 ml Output Total 1400 ml Balance -500 ml Exam Constitutional: alert, oriented, well developed Psych: nl mood/affect, no complaints Head: atraumatic, normocephalic Eyes: EOMI, nl conjunctiva, nl lids, nl sclera ENMT: nl external ears & nose, nl lips & teeth, nl nasal mucosa & septum Neck: non-tender, supple Respiratory: clear to auscultation Cardiovascular: nl pulses, regular rate and rhythm Gastrointestinal: nl liver, spleen, non-tender, soft Musculoskeletal: nl extremities to inspection, nl gait and stance Neurological: PAINT MIXER II-XII intact, nl mental status, nl speech, nl strength Results Result Diagram: 04/04/17 0052 04/04/17 1034 Results 24 hrs Laboratory Tests Test 04/04/17 00:11 04/04/17 00:52 04/04/17 01:49 04/04/17 02:40 Bedside Glucose 397 H 454 *H 423 *H White Blood Count 16.1 #H Red Blood Count 5.37 Hemoglobin 14.5 Hematocrit 42.1 Mean Corpuscular Volume 78.4 L Mean Corpuscular Hemoglobin 27.0 L Mean Corpuscular Hemoglobin Concent 34.4 Red Cell Distribution Width 13.2 Platelet Count 305 Mean Platelet Volume 11.3 #H Neutrophils % 76.6 Lymphocytes % 15.5 Monocytes % 6.4 Eosinophils % 0.4 Basophils % 0.5 Nucleated Red Blood Cells % 0.0 Neutrophils # 12.3 H Lymphocytes # 2.5 Monocytes # 1.0 H Eosinophils # 0.1 Basophils # 0.1 Nucleated Red Blood Cells # 0.0 Prothrombin Time 12.2 Prothrombin Time Ratio 1.0 INR International Normalized Ratio 0.91 Activated Partial Thromboplast Time 23.0 L Sodium Level 135 Potassium Level 5.3 H Chloride Level 100 Carbon Dioxide Level 20 L Anion Gap 20 H Blood Urea Nitrogen 21 H Creatinine 1.18 Glucose Level 498 *H Calcium Level 9.1 Total Bilirubin 0.3 Direct Bilirubin 0.00 Indirect Bilirubin 0.3 Aspartate Amino Transf (AST/SGOT) 26 Alanine Aminotransferase (ALT/SGPT) 47 Alkaline Phosphatase 99 Troponin I < 0.012 Total Protein 7.8 Albumin 4.4 Globulin 3.40 H Albumin/Globulin Ratio 1.29 Lipase 123 Test 04/04/17 08:35 04/04/17 10:34 04/04/17 12:18 Bedside Glucose 264 H 270 H Sodium Level 133 L Potassium Level 4.6 Chloride Level 98 Carbon Dioxide Level 26 Anion Gap 14 Blood Urea Nitrogen 21 H Creatinine 1.05 Glucose Level 319 #H Hemoglobin A1c 12.5 H Calcium Level 9.3 Triglycerides Level 300 H Cholesterol Level 165 LDL Cholesterol, Calculated 61 HDL Cholesterol 44 Cholesterol/HDL Ratio 3.7 Medications Medications Current Medications Aspirin (Ecotrin) 325 mg DAILY PO Last administered on 04/04/17t 08:50; Admin Dose 325 MG; Start 04/04/17 at 09:00 Clonazepam (Klonopin) 0.5 mg QHS PRN PO ANXIETY; Start 04/04/17 at 01:00 Insulin Detemir (Levemir) 40 unit BID SC Last administered on 04/04/17 08:55; Admin Dose 40 UNIT; Start 04/04/17 at 09:00 Lisinopril (Zestril) 20 mg DAILY PO Last administered on 04/04/17 08:51; Admin Dose 20 MG; Start 04/04/17 at 09:00 Metoprolol Succinate (Toprol Xl) 100 mg DAILY PO Last administered on 08:51; Admin Dose 100 MG; Start 04/04/17 at 09:00 Pantoprazole (Protonix Tab) 40 mg DAILY PO Last administered on 04/04/17 08:50 ; Admin Dose 40 MG; Start 04/04/17 at 09:00 Atorvastatin Calcium (Lipitor) 20 mg HS PO ; Start 04/04/17 at 21:00 Miscellaneous Information 1 ea NOTE XX ; Start 04/04/17 at 01:00 Glucose (Glutose) 15 gm Q15M PRN PO DECREASED GLUCOSE; Start 04/04/17 at 01:00 Glucose (Glutose) 22.5 gm Q15M PRN PO DECREASED GLUCOSE; Start 04/04/17 at 01: 00 Dextrose (D50w Syringe) 25 ml Q15M PRN IV DECREASED GLUCOSE; Start 04/04/17 at 01:00 Dextrose (D50w Syringe) 50 ml Q15M PRN IV DECREASED GLUCOSE; Start 04/04/17 at 01:00 Glucagon (Glucagen) 1 mg Q15M PRN IM DECREASED GLUCOSE; Start 04/04/17 at 01:00 Glucose (Glutose) 15 gm Q15M PRN BUCCAL DECREASED GLUCOSE; Start 04/04/17 at 01 :00 Acetaminophen (Tylenol Tab) 650 mg Q6H PRN PO PAIN AND OR ELEVATED TEMP; Start 04/04/17 at 01:00 Acetaminophen/ Hydrocodone Bitart ([place] (10/325)) 1 tab Q4H PRN PO PAIN Last administered on 04/04/17 12:59; Admin Dose 1 TAB; Start 04/04/17 at 01:00 Morphine Sulfate (morphine) 2 mg Q4H PRN IV pain Last administered on 03:56; Admin Dose 2 MG; Start 04/04/17 at 01:00 Ondansetron HCl (Zofran Inj) 4 mg Q6H PRN IV NAUSEA AND/OR VOMITING; Start 04/04/17 at 01:00 Diagnostic Test (Pha) (Accu-Chek) 1 ea 02 XX ; Start 04/04/17 at 02:00 Diagnostic Test (Pha) (Accu-Chek) 1 ea 02 XX ; Start 04/04/17 at 02:00 Docusate Sodium (Colace) 100 mg BID PO Last administered on 04/04/17t 14:40; Admin Dose 100 MG; Start 04/04/17 at 14:00 VINICIUS ALVAREZ MD Apr 04, 2017 16:14
--- NOTE | 2017-04-04 16:25 | RADRPT ---
PROCEDURE: XR Chest. CLINICAL INDICATION: Pneumothorax. TECHNIQUE: Single frontal view of the chest was obtained. COMPARISON: Chest x-ray 04/03/2017. FINDINGS: The soft tissues are generous. There are degenerative osteophytes in the thoracic spine. The left ventricle is enlarged. The cardiomediastinal silhouette and hilar structures are normal. The pulmona ry vasculature is normal. Vascular calcifications are suspected in the aortic arch. The lungs are c lear with no pneumothorax or hemothorax identified. Some subcutaneous emphysema is noted along the l ower left chest wall. A partially visualized linear artifact is noted near the subcutaneous emphysem a of unclear etiology. This could be the result of a bed she or other foreign body. The costophreni c angles are normal. There is no evidence of pneumomediastinum. IMPRESSION: 1. There is no evidence of a pneumothorax. 2. Subcutaneous emphysema is noted along the lower right chest wall. 3. No chest tube is identified in the area of the pleural space. 4. Atherosclerosis of the aortic arch. 5. Left ventricular enlargement. 6. Spondylosis of the thoracic spine. RPTAT:AAJJ Physician Angela Date Time Electronically viewed and signed by Physician Angela on 04/04/2017 16:25 VANESSA/
--- NOTE | 2017-04-04 17:32 | RADRPT ---
Echocardiogram Report Patient Name: NADIRA HERNANDEZ Gender: Male Date: 1960 Study Date: 04-Apr-2017 Outside Deliverer: Chana [facility] Location: 404-A Ref. Physician: LEONARDO DAVEY Quality: Adequate Procedures: Transthoracic echocardiogram with complete 2D, M-Mode, and doppler examination. Indications: SP Fall, Left sided rib. 2D/M Mode Doppler Measurement Value Normal Ranges Measurement Value Normal Ranges LVIDd 2D 5.1 3.5 - 5.6 cm AV Peak Pb 1.5 m/sec LVIDs 2D 3.8 2.1 - 4.1 cm AV Peak PG 9.0 mmHg FS 2D 26.3 % LVOT Peak Pb 0.9 m/sec LVPWd 2D 1.1 0.6 - 1.1 cm LVOT Peak PG 4.0 mmHg IVSd 2D 1.1 0.6 - 1.1 cm MV E Peak Pb 0.7 m/sec IVS/LVPW 2D 1.0 MV A Peak Pb 0.7 m/sec AoR Diam 2D 2.4 2.0 - 3.7 cm MV E/A 0.9 LA/Ao 2D 1 0 - 1 MV Decel Time 197 msec EDV 2D 132.0 cm3 MV E/A 0.9 ESV 2D 52.7 cm3 LA Dimen 2D 3.4 2.3 - 4.0 cm Findings Left Ventricle: Lower limits of normal systolic function. Normal left ventricular cavity size. Left ventricular wall thickness upper limits of normal. Ejection fraction is visually estimated at 50 %. Abnormal Diastolic Function. Right Ventricle: Normal right ventricular size. Normal right ventricular systolic function. Left Atrium: The left atrium is normal in size. Right Atrium: The right atrium is normal in size. Mitral Valve: Mild mitral leaflet calcification. Mild mitral annular calcification. Trace mitral regurgitation. Aortic Valve: Normal appearance of the aortic valve. No significant aortic stenosis or insufficiency. Tricuspid Valve: Normal appearance of the tricuspid valve. Unable to obtain RVSP due to minimal presence of tricuspid regurgitation. There is trace tricuspid regurgitation. Pulmonic Valve: Pulmonic valve not well visualized. There is trace pulmonic regurgitation. Pericardium: Normal pericardium with no significant pericardial effusion. Aorta: Normal aortic root. IVC: Normal size and normal respiratory collapse consistent with normal right atrial pressure. Conclusions 1.Lower limits of normal systolic function. Normal left ventricular cavity size. Left ventricular wall thickness upper limits of normal. Ejection fraction is visually estimated at 50 %. Abnormal Diastolic Function. 2.Normal right ventricular size. Normal right ventricular systolic function. 3.Mild mitral leaflet calcification. Mild mitral annular calcification. Trace mitral regurgitation. 4.Normal appearance of the aortic valve. No significant aortic stenosis or insufficiency. 5.Normal appearance of the tricuspid valve. Unable to obtain RVSP due to minimal presence of tricuspid regurgitation. There is trace tricuspid regurgitation. 6.Normal pericardium with no significant pericardial effusion. Electronically Signed By: Aaron Dallas 04-Apr-2017 17:31:24 -0700 Patient Name: NADIRA HERNANDEZ Study Date: 04-Apr-2017 [id number]
[2017-04-04 20:24] VITALS: BP 128/70; RESP 19
[2017-04-04] MEDS: ATORVASTATIN 20 MG TAB PO SCH (20:54)
[2017-04-05] MEDS: HYDROCODONE/APAP (10/325) TAB PO PRN ×5 (00:06→21:01)
[2017-04-05] MEDS: ACCU-CHEK XX SCH ×2 (01:51→01:55)
[2017-04-05 02:48] VITALS: BP 124/68; RESP 19
[2017-04-05] MEDS: morphine 2 MG INJ IV PRN (03:25)
[2017-04-05 05:13] LABS: BASOPHIL # 0.1 10^3/ul (0.0-0.1); BASOPHILS % 0.5 % (0.0-2.0); EOSINOPHILS # 0.2 10^3/ul (0.0-0.5); EOSINOPHILS % 1.4 % (0.0-7.0); HEMATOCRIT 41.8 % (42.0-52.0); HEMOGLOBIN 14.1 g/dl (14.0-18.0); LYMPHOCYTES % 18.6 % (15.0-51.0); MEAN CORPUSCULAR HEMOGLOBIN 26.8 pg (29.0-33.0); MEAN CORPUSCULAR HGB CONC 33.7 g/dl (32.0-37.0); MEAN CORPUSCULAR VOLUME 79.3 fl (82.0-101.0); MEAN PLATELET VOLUME 11.3 fl (7.4-10.4); MONOCYTE # 0.7 10^3/ul (0.3-0.9); MONOCYTES % 6.8 % (0.0-11.0); NEUTROPHIL # 7.9 10^3/ul (1.6-7.5); NEUTROPHILS % 72.1 % (39.0-77.0); PLATELET COUNT 246 10^3/UL (140-415); RED BLOOD COUNT 5.27 10^6/ul (4.70-6.10); RED CELL DISTRIBUTION WIDTH 13.1 % (11.5-14.5); WHITE BLOOD COUNT 10.9 10^3/ul (4.8-10.8)
[2017-04-05 07:45] VITALS: BP 127/76; RESP 19
[2017-04-05] MEDS: DOCUSATE SODIUM 100 MG CAP PO SCH ×2 (09:27→20:39)
[2017-04-05] MEDS: ASPIRIN (EC) 325 MG TAB PO SCH (09:27)
[2017-04-05] MEDS: PANTOPRAZOLE (EC) 40 MG TAB PO SCH (09:27)
[2017-04-05] MEDS: METOPROLOL (XL) 100 MG TAB PO SCH (09:28)
[2017-04-05] MEDS: LISINOPRIL 20 MG TAB PO SCH (09:28)
[2017-04-05] MEDS: INSULIN ASPART [NOVOLOG] 3 ML PEN SC SCH ×7 (09:34→20:38)
[2017-04-05] MEDS: INSULIN DETEMIR [LEVEMIR] 3ML CART SC SCH (09:34)
--- NOTE | 2017-04-05 10:39 | CONS ---
DATE OF ADMISSION: 04/04/2017 DATE OF CONSULTATION: 04/04/2017 Thank you, Dr. Villalpando, for involving me to participate in taking care of your patient. REASON FOR CONSULTATION: Shortness of breath. HISTORY OF PRESENT ILLNESS: The patient is a 57-year-old gentleman who slipped and fell in the rest room and sustained a fracture of the left 8th rib posteriorly with left pneumothorax. The patient c omplains of shortness of breath but denies any chest pain, shortness of breath, dizziness, syncope o r palpitation prior to fall. He has a history of coronary artery disease, status post stenting x3 w ith the latest stent about 3 years ago. PAST MEDICAL HISTORY: Significant for: 1. Coronary artery disease, status post stenting. 2. Diabetes mellitus. 3. Hypertension. 4. Dyslipidemia. SOCIAL HISTORY: No smoking, alcohol, or recreational drugs. ALLERGIES: NONE. CURRENT MEDICATIONS: Include: 1. Insulin. 2. Colace. 3. Aspirin. 4. Lisinopril. 5. Metoprolol. 6. Protonix. 7. Atorvastatin. 8. Insulin. REVIEW OF SYSTEMS: Unremarkable except that mentioned in the HPI. PHYSICAL EXAMINATION: VITAL SIGNS: Temperature is 98.5, heart rate of ____, blood pressure 120/71 mmHg, breathing at 18 a nd saturating ____%. GENERAL: Patient awake, alert, oriented, in mild distress. NECK: No JVD or carotid bruit. CARDIOVASCULAR: Regular rate and rhythm. No murmur, rub or gallop. CHEST: Clear to auscultation. ABDOMEN: Soft. Bowel sounds are present. There is no organomegaly. EXTREMITIES: No pedal edema. DIAGNOSTIC DATA: Review of 12-lead EKG shows sinus tachycardia with a ventricular rate of ____ beat s per minute with normal NC, normal QRS and normal QT intervals with T-wave inversion in leads V4 to V6, and lead II, III and aVF inferolateral leads. CT chest shows left 8th rib fracture with left-sided pneumothorax mediastinum, coronary calcificatio n and extensive lower neck and left posterior chest wall subcutaneous emphysema. LABORATORY DATA: WBC of 16.1, hemoglobin is 14.5, hematocrit 42.1 with a platelet of 305. Sodium 1 33, potassium 4.6, chloride 98, CO2 of 26, BUN 21, creatinine 1.05. Hemoglobin A1c is 12.5. Tropon in first set is negative. ASSESSMENT AND PLAN: A 57-year-old gentleman with: 1. Status post fall, status post left rib fracture. 2. Left pneumothorax. 3. Pneumomediastinum. Left lower neck and left posterolateral chest wall subcutaneous emphysema. 4. Abnormal electrocardiogram. 5. Dyspnea. RECOMMENDATIONS: 1. Trend troponin, BNP. 2. Echocardiogram to assess for systolic function and to rule out for pulmonary hypertension and pe ricardial disease. 3. Continue metoprolol and lisinopril. 4. Continue insulin. 5. Continue Lipitor. 6. Pain management as recommended. Dictated By: SCOTTIE BOYER MD SR/NTS Conf#: [id number] DID#: [id number]
--- NOTE | 2017-04-05 11:25 | RADRPT ---
PROCEDURE: XR Chest. CLINICAL INDICATION: Small left pneumothorax. TECHNIQUE: Single frontal view. COMPARISON: Chest x-ray dated 04/04/2017. CT scan of the chest dated 04/03/2017. FINDINGS: The lungs are clear. The heart size is normal. There is no pleural effusion. Small left pneumothorax visualized on CT scan is not seen with plain radiograph. IMPRESSION: 1. Normal chest radiograph. 2. Small left pneumothorax visualized on CT scan not seen with plain radiograph. RPTAT: QQ .Dallin Virk MD, MD Date Time Electronically viewed and signed by .Dallin Virk MD, MD on 04/05/2017 11:25 .R/
--- NOTE | 2017-04-05 14:32 | PN ---
Date/Time of Note Date/Time of Note DATE: 04/05/17 TIME: 14:19 Assessment/Plan VTE Prophylaxis VTE Prophylaxis Intervention: SCD's Lines/Catheters IV [facility] [place] [facility] Urinary Cath still in place: No Assessment/Plan Chief Complaint/Hosp Course Patient's continues on oxygen via facemask, complaints of chest pain due to rib fracture, awake alert was able to get to the chair with assist. Blood sugar is elevated, continue Lantus and pre-meal NovoLog. Patient's condition and plan of care discussed with patient and patient's at the bedside. Problems: Assessment/Plan - Small left pneumothorax s/p rib fx after a fall. Dr. Bradford is following in pulmonology consultation - Posterior left eighth rib fracture. - S/p fall - CAD, with multiple stents placement done by Dr. Clifford - HTN, continue metoprolol - Insulin-dependent diabetes mellitus, poorly controlled with hemoglobin A1c 12.3. Continue Lantus pre-meal NovoLog and NovoLog per mild algorithm sliding scale. Dr. Gray is asked to see patient in endocrinology consultation - Hyperlipidemia, continue statin - GERD Further recommendations based on clinical course. Plan of care discussed with Dr. Villalpando. Exam/Review of Systems Vital Signs Vitals Vital Signs Date Time Temp Pulse Resp B/P Pulse Ox O2 Delivery O2 Flow Rate FiO2 04/05/17 08:00 Simple Mask 10.0 04/05/17 07:45 98.0 86 19 127/76 98 Intake and Output 04/04/17 04/04/17 04/05/17 15:00 23:00 07:00 Intake Total 1000 ml 700 ml 750 ml Balance 1000 ml 700 ml 750 ml Exam Constitutional: alert, oriented Head: normocephalic Neck: supple Respiratory: normal air movement Cardiovascular: nl pulses Gastrointestinal: non-tender, soft Extremities: normal pulses Results Result Diagram: 04/05/17 0413 04/04/17 1034 Results 24 hrs Laboratory Tests Test 04/04/17 17:27 04/04/17 20:49 04/05/17 01:49 04/05/17 04:13 Bedside Glucose 290 H 259 H 257 H White Blood Count 10.9 #H Red Blood Count 5.27 Hemoglobin 14.1 Hematocrit 41.8 L Mean Corpuscular Volume 79.3 L Mean Corpuscular Hemoglobin 26.8 L Mean Corpuscular Hemoglobin Concent 33.7 Red Cell Distribution Width 13.1 Platelet Count 246 Mean Platelet Volume 11.3 H Neutrophils % 72.1 Lymphocytes % 18.6 Monocytes % 6.8 Eosinophils % 1.4 Basophils % 0.5 Nucleated Red Blood Cells % 0.0 Neutrophils # 7.9 H Lymphocytes # 2.0 Monocytes # 0.7 Eosinophils # 0.2 Basophils # 0.1 Nucleated Red Blood Cells # 0.0 Test 04/05/17 08:29 04/05/17 12:12 Bedside Glucose 268 H 307 H Medications Medications Current Medications Aspirin (Ecotrin) 325 mg DAILY PO Last administered on 04/05/17 09:27; Admin Dose 325 MG; Start 04/04/17 at 09:00 Clonazepam (Klonopin) 0.5 mg QHS PRN PO ANXIETY; Start 04/04/17 at 01:00 Lisinopril (Zestril) 20 mg DAILY PO Last administered on 04/05/17 09:28; Admin Dose 20 MG; Start 04/04/17 at 09:00 Metoprolol Succinate (Toprol Xl) 100 mg DAILY PO Last administered on 09:28; Admin Dose 100 MG; Start 04/04/17 at 09:00 Pantoprazole (Protonix Tab) 40 mg DAILY PO Last administered on 04/05/17 09:27 ; Admin Dose 40 MG; Start 04/04/17 at 09:00 Atorvastatin Calcium (Lipitor) 20 mg HS PO Last administered on 04/04/17 20:54 ; Admin Dose 20 MG; Start 04/04/17 at 21:00 Miscellaneous Information 1 ea NOTE XX ; Start 04/04/17 at 01:00 Glucose (Glutose) 15 gm Q15M PRN PO DECREASED GLUCOSE; Start 04/04/17 at 01:00 Glucose (Glutose) 22.5 gm Q15M PRN PO DECREASED GLUCOSE; Start 04/04/17 at 01: 00 Dextrose (D50w Syringe) 25 ml Q15M PRN IV DECREASED GLUCOSE; Start 04/04/17 at 01:00 Dextrose (D50w Syringe) 50 ml Q15M PRN IV DECREASED GLUCOSE; Start 04/04/17 at 01:00 Glucagon (Glucagen) 1 mg Q15M PRN IM DECREASED GLUCOSE; Start 04/04/17 at 01:00 Glucose (Glutose) 15 gm Q15M PRN BUCCAL DECREASED GLUCOSE; Start 04/04/17 at 01 :00 Acetaminophen (Tylenol Tab) 650 mg Q6H PRN PO PAIN AND OR ELEVATED TEMP; Start 04/04/17 at 01:00 Acetaminophen/ Hydrocodone Bitart ([place] (10/325)) 1 tab Q4H PRN PO PAIN Last administered on 04/05/17 11:23; Admin Dose 1 TAB; Start 04/04/17 at 01:00 Morphine Sulfate (morphine) 2 mg Q4H PRN IV pain Last administered on 03:25; Admin Dose 2 MG; Start 04/04/17 at 01:00 Ondansetron HCl (Zofran Inj) 4 mg Q6H PRN IV NAUSEA AND/OR VOMITING; Start 04/04/17 at 01:00 Diagnostic Test (Pha) (Accu-Chek) 1 ea 02 XX Last administered on 04/05/17 01: 55; Admin Dose 1 EA; Start 04/04/17 at 02:00 Diagnostic Test (Pha) (Accu-Chek) 1 ea 02 XX Last administered on 04/05/17 01: 51; Admin Dose 1 EA; Start 04/04/17 at 02:00 Docusate Sodium (Colace) 100 mg BID PO Last administered on 04/05/17 09:27; Admin Dose 100 MG; Start 04/04/17 at 14:00 Insulin Detemir (Levemir) 27 unit DAILY@08 SC ; Start 04/06/17 at 08:00 DARIEN FERNANDEZ Apr 05, 2017 14:30
--- NOTE | 2017-04-05 14:51 | CONS ---
Date/Time of Note Date/Time of Note DATE: 04/05/17 TIME: 14:49 Assessment/Plan Assessment/Plan Additional Assessment/Plan Chest x-ray was reviewed from today which is essentially clear. Assessment and recommendations; 1. Patient admitted due to a fall resulting in very small left apical pneumothorax with marked radiological improvement. 2. History of hypertension and diabetes. Continue current treatment. Consider discharge. Consultation Date/Type/Reason Admit Date/Time Apr 04, 2017 at 19:04 Initial Consult Date Type of Consultation: Pulm 24 HR Interval Summary Free Text/Dictation Patient's condition is stable. Complains of very minimal shortness of breath upon exertion. Denies any wheezing, cough, chest pain. General exam; elderly male, awake alert, currently in no distress. Exam/Review of Systems Vital Signs Vitals Vital Signs Date Time Temp Pulse Resp B/P Pulse Ox O2 Delivery O2 Flow Rate FiO2 04/05/17 08:00 Simple Mask 10.0 04/05/17 07:45 98.0 86 19 127/76 98 Intake and Output 04/04/17 04/04/17 04/05/17 15:00 23:00 07:00 Intake Total 1000 ml 700 ml 750 ml Balance 1000 ml 700 ml 750 ml Exam HEENT exam; supple neck, no JVD. No lymphadenopathy. Midline trachea. No thyromegaly. Has bilateral intraocular lens implants. Patient has fair dentition. Chest exam; clear to auscultation. Nontender chest wall. S1-S2 audible, no murmurs. Regular rhythm. Abdomen exam; protuberant. Nontender. Bowel sounds audible. No organomegaly. Extremity exam; no edema. 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 Results Result Diagram: 04/05/17 0413 04/04/17 1034 Results 24 hrs Laboratory Tests Test 04/04/17 17:27 04/04/17 20:49 04/05/17 01:49 04/05/17 04:13 Bedside Glucose 290 H 259 H 257 H White Blood Count 10.9 #H Red Blood Count 5.27 Hemoglobin 14.1 Hematocrit 41.8 L Mean Corpuscular Volume 79.3 L Mean Corpuscular Hemoglobin 26.8 L Mean Corpuscular Hemoglobin Concent 33.7 Red Cell Distribution Width 13.1 Platelet Count 246 Mean Platelet Volume 11.3 H Neutrophils % 72.1 Lymphocytes % 18.6 Monocytes % 6.8 Eosinophils % 1.4 Basophils % 0.5 Nucleated Red Blood Cells % 0.0 Neutrophils # 7.9 H Lymphocytes # 2.0 Monocytes # 0.7 Eosinophils # 0.2 Basophils # 0.1 Nucleated Red Blood Cells # 0.0 Test 04/05/17 08:29 04/05/17 12:12 Bedside Glucose 268 H 307 H Medications Medications Current Medications Aspirin (Ecotrin) 325 mg DAILY PO Last administered on 04/05/17 09:27; Admin Dose 325 MG; Start 04/04/17 at 09:00 Clonazepam (Klonopin) 0.5 mg QHS PRN PO ANXIETY; Start 04/04/17 at 01:00 Lisinopril (Zestril) 20 mg DAILY PO Last administered on 04/05/17 09:28; Admin Dose 20 MG; Start 04/04/17 at 09:00 Metoprolol Succinate (Toprol Xl) 100 mg DAILY PO Last administered on 09:28; Admin Dose 100 MG; Start 04/04/17 at 09:00 Pantoprazole (Protonix Tab) 40 mg DAILY PO Last administered on 04/05/17 09:27 ; Admin Dose 40 MG; Start 04/04/17 at 09:00 Atorvastatin Calcium (Lipitor) 20 mg HS PO Last administered on 04/04/17 20:54 ; Admin Dose 20 MG; Start 04/04/17 at 21:00 Miscellaneous Information 1 ea NOTE XX ; Start 04/04/17 at 01:00 Glucose (Glutose) 15 gm Q15M PRN PO DECREASED GLUCOSE; Start 04/04/17 at 01:00 Glucose (Glutose) 22.5 gm Q15M PRN PO DECREASED GLUCOSE; Start 04/04/17 at 01: 00 Dextrose (D50w Syringe) 25 ml Q15M PRN IV DECREASED GLUCOSE; Start 04/04/17 at 01:00 Dextrose (D50w Syringe) 50 ml Q15M PRN IV DECREASED GLUCOSE; Start 04/04/17 at 01:00 Glucagon (Glucagen) 1 mg Q15M PRN IM DECREASED GLUCOSE; Start 04/04/17 at 01:00 Glucose (Glutose) 15 gm Q15M PRN BUCCAL DECREASED GLUCOSE; Start 04/04/17 at 01 :00 Acetaminophen (Tylenol Tab) 650 mg Q6H PRN PO PAIN AND OR ELEVATED TEMP; Start 04/04/17 at 01:00 Acetaminophen/ Hydrocodone Bitart ([place] (10/325)) 1 tab Q4H PRN PO PAIN Last administered on 04/05/17 11:23; Admin Dose 1 TAB; Start 04/04/17 at 01:00 Morphine Sulfate (morphine) 2 mg Q4H PRN IV pain Last administered on 03:25; Admin Dose 2 MG; Start 04/04/17 at 01:00 Ondansetron HCl (Zofran Inj) 4 mg Q6H PRN IV NAUSEA AND/OR VOMITING; Start 04/04/17 at 01:00 Diagnostic Test (Pha) (Accu-Chek) 1 ea 02 XX Last administered on 04/05/17 01: 55; Admin Dose 1 EA; Start 04/04/17 at 02:00 Diagnostic Test (Pha) (Accu-Chek) 1 ea 02 XX Last administered on 04/05/17 01: 51; Admin Dose 1 EA; Start 04/04/17 at 02:00 Docusate Sodium (Colace) 100 mg BID PO Last administered on 04/05/17 09:27; Admin Dose 100 MG; Start 04/04/17 at 14:00 Insulin Detemir (Levemir) 27 unit DAILY@08 SC ; Start 04/06/17 at 08:00 JASIEL LAMBERT Apr 05, 2017 14:51
--- NOTE | 2017-04-05 17:28 | CONS ---
Date/Time of Note Date/Time of Note DATE: 04/05/17 TIME: 17:19 Assessment/Plan Assessment/Plan Problems: (1) Diabetes mellitus type 2 in obese Status: Chronic Comment: Prior to ordering endocrine consult primary team reduce Levemir from 40 units every 12 to 27 units nightly and added NovoLog 9 units subcu q. before meals. This was absolutely the correct decision. This patient is suffering from a lack of mealtime insulin. These doses can be adjusted up or down, but should be close to correct for this patient based on his body weight. Will add metformin 1000 mg twice a day, resume pioglitazone 15 mg daily, and start linagliptin 5 mg p.o. daily. If patient does not achieve goal blood glucose levels on this regimen will titrate insulin doses upwards. Patient seems to have poor insight into his disease and refuses education help. Seems fatalistic about his glucose levels and for me this confers a poor prognosis for this patient's diabetes control. Will continue to offer help any way I can. Consultation Date/Type/Reason Admit Date/Time Apr 04, 2017 at 19:04 Date of Consultation: Apr 05, 2017 Type of Consultation: Endocrinology Reason for Consultation Type 2 diabetes mellitus out of control Referring Provider: DARIEN FERNANDEZ Hx of Present Illness 57-year-old [place] male with history of type 2 diabetes mellitus and coronary artery disease, in usual state of health until 2 days ago when he was in the shower and slipped. Developed immediate pain in the left posterior thorax. One hour later came to [facility] emergency room. CT scan revealed eighth rib fracture but also small pneumothorax, small pneumomediastinum, and subcutaneous emphysema. Patient admitted for oxygen nitrogen washout. Given history of diabetes patient had hemoglobin A1c checked. Was 12%. Endocrine consulted Constitutional: no complaints Eyes: no complaints ENT: no complaints Respiratory: no complaints Cardiovascular: no complaints Gastrointestinal: no complaints Genitourinary: no complaints Musculoskeletal: back pain Skin: no complaints Neurologic: no complaints Endocrine: no complaints Lymphatic: no complaints Psychological: nl mood/affect, no complaints Immunologic: no complaints Past Medical History Medical History: coronary artery disease, diabetes, GERD, high cholesterol, hypertension, other (Kidney stone, anxiety) Past Surgical History Past Surgical Hx: angioplasty, other (Transurethral laser lithotripsy) Family History Significant Family History: heart disease (Father), diabetes (Father) Social History Born in [facility] [place], 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, , 2 children Alcohol Use: occasionally (At least 2 drinks per week) Smoking Status: Former smoker (1 1/2 to 3 packs a day for 36 years) Drug Use: none Exam/Review of Systems Vital Signs Vitals VS - Last 72 Hours, by Label Date Time Temp Pulse Resp B/P Pulse Ox O2 Delivery O2 Flow Rate FiO2 04/05/17 08:00 Simple Mask 10.0 04/05/17 07:45 98.0 86 19 127/76 98 04/05/17 02:48 98.0 78 19 124/68 100 04/04/17 20:24 98.7 84 19 128/70 100 04/04/17 20:10 Simple Mask 10.0 04/04/17 14:00 98.5 83 18 120/71 95 04/04/17 08:00 98.6 99 16 145/72 98 04/04/17 00:10 98.7 105 20 132/78 96 Room Air 04/03/17 23:05 86 20 151/98 99 Room Air 04/03/17 21:05 98.5 101 18 140/72 97 Room Air 04/03/17 20:18 98.5 98 18 120/66 99 Room Air 04/03/17 18:43 98.6 107 17 144/88 100 Vital Signs Date Time Temp Pulse Resp B/P Pulse Ox O2 Delivery O2 Flow Rate FiO2 04/05/17 08:00 Simple Mask 10.0 04/05/17 07:45 98.0 86 19 127/76 98 Intake and Output 04/04/17 04/04/17 04/05/17 15:00 23:00 07:00 Intake Total 1000 ml 700 ml 750 ml Balance 1000 ml 700 ml 750 ml Exam Constitutional: alert, obese, oriented Psych: nl mood/affect, no complaints Eyes: EOMI, PERRL, nl conjunctiva, nl lids, nl sclera ENMT: mucosa pink and moist, nl external ears & nose Neck: non-tender, supple, No bruits, No masses, No thyromegaly Respiratory: clear to auscultation, normal air movement Cardiovascular: nl pulses, regular rate and rhythm, No edema, No murmurs/extra sounds, No rub Gastrointestinal: bowel sounds, nl liver, spleen, non-tender, soft, No mass, No rebound or guarding Musculoskeletal: nl extremities to inspection Extremities: normal pulses, No clubbing, No cyanosis, No edema 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, nl mental status, nl speech, nl strength Additional Comments Bedside Glucose - 72 Hours Test 04/04/17 00:11 04/04/17 01:49 04/04/17 02:40 04/04/17 08:35 Bedside Glucose 397mg/dL (70-220) H 454mg/dL (70-220) *H 423mg/dL (70-220) *H 264mg/dL (70-220) H Test 04/04/17 12:18 04/04/17 17:27 04/04/17 20:49 04/05/17 01:49 Bedside Glucose 270mg/dL (70-220) H 290mg/dL (70-220) H 259mg/dL (70-220) H 257mg/dL (70-220) H Test 04/05/17 08:29 04/05/17 12:12 Bedside Glucose 268mg/dL (70-220) H 307mg/dL (70-220) H Results Result Diagram: 04/05/17 0413 04/04/17 1034 Results 24 hrs Laboratory Tests Test 04/04/17 17:27 04/04/17 20:49 04/05/17 01:49 04/05/17 04:13 Bedside Glucose 290 H 259 H 257 H White Blood Count 10.9 #H Red Blood Count 5.27 Hemoglobin 14.1 Hematocrit 41.8 L Mean Corpuscular Volume 79.3 L Mean Corpuscular Hemoglobin 26.8 L Mean Corpuscular Hemoglobin Concent 33.7 Red Cell Distribution Width 13.1 Platelet Count 246 Mean Platelet Volume 11.3 H Neutrophils % 72.1 Lymphocytes % 18.6 Monocytes % 6.8 Eosinophils % 1.4 Basophils % 0.5 Nucleated Red Blood Cells % 0.0 Neutrophils # 7.9 H Lymphocytes # 2.0 Monocytes # 0.7 Eosinophils # 0.2 Basophils # 0.1 Nucleated Red Blood Cells # 0.0 Test 04/05/17 08:29 04/05/17 12:12 Bedside Glucose 268 H 307 H Medications Medications Current Medications Aspirin (Ecotrin) 325 mg DAILY PO Last administered on 04/05/17t 09:27; Admin Dose 325 MG; Start 04/04/17 at 09:00 Clonazepam (Klonopin) 0.5 mg QHS PRN PO ANXIETY; Start 04/04/17 at 01:00 Lisinopril (Zestril) 20 mg DAILY PO Last administered on 04/05/17 09:28; Admin Dose 20 MG; Start 04/04/17 at 09:00 Metoprolol Succinate (Toprol Xl) 100 mg DAILY PO Last administered on 09:28; Admin Dose 100 MG; Start 04/04/17 at 09:00 Pantoprazole (Protonix Tab) 40 mg DAILY PO Last administered on 04/05/17 09:27 ; Admin Dose 40 MG; Start 04/04/17 at 09:00 Atorvastatin Calcium (Lipitor) 20 mg HS PO Last administered on 04/04/17 20:54 ; Admin Dose 20 MG; Start 04/04/17 at 21:00 Miscellaneous Information 1 ea NOTE XX ; Start 04/04/17 at 01:00 Glucose (Glutose) 15 gm Q15M PRN PO DECREASED GLUCOSE; Start 04/04/17 at 01:00 Glucose (Glutose) 22.5 gm Q15M PRN PO DECREASED GLUCOSE; Start 04/04/17 at 01: 00 Dextrose (D50w Syringe) 25 ml Q15M PRN IV DECREASED GLUCOSE; Start 04/04/17 at 01:00 Dextrose (D50w Syringe) 50 ml Q15M PRN IV DECREASED GLUCOSE; Start 04/04/17 at 01:00 Glucagon (Glucagen) 1 mg Q15M PRN IM DECREASED GLUCOSE; Start 04/04/17 at 01:00 Glucose (Glutose) 15 gm Q15M PRN BUCCAL DECREASED GLUCOSE; Start 04/04/17 at 01 :00 Acetaminophen (Tylenol Tab) 650 mg Q6H PRN PO PAIN AND OR ELEVATED TEMP; Start 04/04/17 at 01:00 Acetaminophen/ Hydrocodone Bitart ([place] (10325)) 1 tab Q4H PRN PO PAIN Last administered on 04/05/17 17:03; Admin Dose 1 TAB; Start 04/04/17 at 01:00 Morphine Sulfate (morphine) 2 mg Q4H PRN IV pain Last administered on 03:25; Admin Dose 2 MG; Start 04/04/17 at 01:00 Ondansetron HCl (Zofran Inj) 4 mg Q6H PRN IV NAUSEA AND/OR VOMITING; Start 04/04/17 at 01:00 Diagnostic Test (Pha) (Accu-Chek) 1 ea 02 XX Last administered on 04/05/17 01: 55; Admin Dose 1 EA; Start 04/04/17 at 02:00 Diagnostic Test (Pha) (Accu-Chek) 1 ea 02 XX Last administered on 04/05/17 01: 51; Admin Dose 1 EA; Start 04/04/17 at 02:00 Docusate Sodium (Colace) 100 mg BID PO Last administered on 04/05/17 09:27; Admin Dose 100 MG; Start 04/04/17 at 14:00 Insulin Detemir (Levemir) 27 unit DAILY@08 SC ; Start 04/06/17 at 08:00 Pioglitazone HCl (Actos) 15 mg DAILY PO ; Start 04/06/17 at 09:00 Linagliptin (Tradjenta) 5 mg DAILY PO ; Start 04/06/17 at 09:00 JOSE G OLMOS MD Apr 05, 2017 17:28
[2017-04-05] MEDS: metFORMIN 500 MG TAB PO SCH (18:02)
[2017-04-05 19:25] VITALS: BP 134/68; RESP 20
[2017-04-05] MEDS: ATORVASTATIN 20 MG TAB PO SCH (20:39)
--- NOTE | 2017-04-05 21:12 | CONS ---
Date/Time of Note Date/Time of Note DATE: 04/05/17 TIME: 21:07 Assessment/Plan Assessment/Plan Chief Complaint/Hosp Course IMP: 1. Status post fall, mechanical by description-NL EF by echo/negative trop 2. Left pneumothorax-secondary to rib fx 3. Pneumomediastinum. Left lower neck and left posterolateral chest wall subcutaneous emphysema. 4. Abnormal electrocardiogram. 5. Dyspnea. 6. DM with elevated BS 7. H/O PTCA/stent-most recent 1 year prior Recc: -Continue asa/? need for plavix depending upon when last stent really placed -Continue BB/zestril -Continue statin -Follow resp status and serial cxr's with ongoing pulm f/u -Ongoing adjustment of insulin/oral hypoglycemics Problems: Consultation Date/Type/Reason Admit Date/Time Apr 04, 2017 at 19:04 Initial Consult Date 04/05/17 Type of Consultation: cardiology Reason for Consultation h/o stent/abnl ecg Referring Provider: DARIEN FERNANDEZ Exam/Review of Systems Vital Signs Vitals Vital Signs Date Time Temp Pulse Resp B/P Pulse Ox O2 Delivery O2 Flow Rate FiO2 04/05/17 19:25 98.1 101 20 134/68 97 04/05/17 08:00 Simple Mask 10.0 Intake and Output 04/04/17 04/04/17 04/05/17 14:59 22:59 06:59 Intake Total 1000 ml 700 ml 750 ml Balance 1000 ml 700 ml 750 ml Exam Review of Systems: CONSTITUTIONAL: No fevers, chills. PULMONARY: No sob CARDIOVASCULAR: No chest pain/palpitations GASTROINTESTINAL: No nausea/vomiting. GENITOURINARY: No hematuria/dysuria. MUSCULOSKELETAL: No myagias/arthalgias. PSYCHIATRIC: The patient denies depression. NEUROLOGIC: No weakness Constitutional: alert Psych: no complaints Head: normocephalic ENMT: mucosa pink and moist Neck: jvd (9 cm water), supple Cardiovascular: regular rate and rhythm Gastrointestinal: soft Musculoskeletal: muscle tone (normal) Extremities: edema (none) Neurological: other (No focal deficits) Results Result Diagram: 04/05/17 0413 04/04/17 1034 Results 24 hrs Laboratory Tests Test 04/05/17 01:49 04/05/17 04:13 04/05/17 08:29 04/05/17 12:12 Bedside Glucose 257 H 268 H 307 H White Blood Count 10.9 #H Red Blood Count 5.27 Hemoglobin 14.1 Hematocrit 41.8 L Mean Corpuscular Volume 79.3 L Mean Corpuscular Hemoglobin 26.8 L Mean Corpuscular Hemoglobin Concent 33.7 Red Cell Distribution Width 13.1 Platelet Count 246 Mean Platelet Volume 11.3 H Neutrophils % 72.1 Lymphocytes % 18.6 Monocytes % 6.8 Eosinophils % 1.4 Basophils % 0.5 Nucleated Red Blood Cells % 0.0 Neutrophils # 7.9 H Lymphocytes # 2.0 Monocytes # 0.7 Eosinophils # 0.2 Basophils # 0.1 Nucleated Red Blood Cells # 0.0 Test 04/05/17 18:01 04/05/17 20:36 Bedside Glucose 237 H 295 H Medications Medications Current Medications Aspirin (Ecotrin) 325 mg DAILY PO Last administered on 04/05/17 09:27; Admin Dose 325 MG; Start 04/04/17 at 09:00 Clonazepam (Klonopin) 0.5 mg QHS PRN PO ANXIETY; Start 04/04/17 at 01:00 Lisinopril (Zestril) 20 mg DAILY PO Last administered on 04/05/17 09:28; Admin Dose 20 MG; Start 04/04/17 at 09:00 Metoprolol Succinate (Toprol Xl) 100 mg DAILY PO Last administered on 09:28; Admin Dose 100 MG; Start 04/04/17 at 09:00 Pantoprazole (Protonix Tab) 40 mg DAILY PO Last administered on 04/05/17 09:27 ; Admin Dose 40 MG; Start 04/04/17 at 09:00 Atorvastatin Calcium (Lipitor) 20 mg HS PO Last administered on 04/05/17 20:39 ; Admin Dose 20 MG; Start 04/04/17 at 21:00 Miscellaneous Information 1 ea NOTE XX ; Start 04/04/17 at 01:00 Glucose (Glutose) 15 gm Q15M PRN PO DECREASED GLUCOSE; Start 04/04/17 at 01:00 Glucose (Glutose) 22.5 gm Q15M PRN PO DECREASED GLUCOSE; Start 04/04/17 at 01: 00 Dextrose (D50w Syringe) 25 ml Q15M PRN IV DECREASED GLUCOSE; Start 04/04/17 at 01:00 Dextrose (D50w Syringe) 50 ml Q15M PRN IV DECREASED GLUCOSE; Start 04/04/17 at 01:00 Glucagon (Glucagen) 1 mg Q15M PRN IM DECREASED GLUCOSE; Start 04/04/17 at 01:00 Glucose (Glutose) 15 gm Q15M PRN BUCCAL DECREASED GLUCOSE; Start 04/04/17 at 01 :00 Acetaminophen (Tylenol Tab) 650 mg Q6H PRN PO PAIN AND OR ELEVATED TEMP; Start 04/04/17 at 01:00 Acetaminophen/ Hydrocodone Bitart ([place] (10/325)) 1 tab Q4H PRN PO PAIN Last administered on 04/05/17 21:01; Admin Dose 1 TAB; Start 04/04/17 at 01:00 Morphine Sulfate (morphine) 2 mg Q4H PRN IV pain Last administered on 03:25; Admin Dose 2 MG; Start 04/04/17 at 01:00 Ondansetron HCl (Zofran Inj) 4 mg Q6H PRN IV NAUSEA AND/OR VOMITING; Start 04/04/17 at 01:00 Diagnostic Test (Pha) (Accu-Chek) 1 ea 02 XX Last administered on 04/05/17 01: 55; Admin Dose 1 EA; Start 04/04/17 at 02:00 Diagnostic Test (Pha) (Accu-Chek) 1 ea 02 XX Last administered on 04/05/17 01: 51; Admin Dose 1 EA; Start 04/04/17 at 02:00 Docusate Sodium (Colace) 100 mg BID PO Last administered on 04/05/17 20:39; Admin Dose 100 MG; Start 04/04/17 at 14:00 Insulin Detemir (Levemir) 27 unit DAILY@08 SC ; Start 04/06/17 at 08:00 Pioglitazone HCl (Actos) 15 mg DAILY PO ; Start 04/06/17 at 09:00 Linagliptin (Tradjenta) 5 mg DAILY PO ; Start 04/06/17 at 09:00 MADALYN GARCIA Apr 05, 2017 21:12
[2017-04-06] MEDS: ACCU-CHEK XX SCH ×2 (01:42)
[2017-04-06 02:10] VITALS: BP 108/53; PULSE 85; RESP 20
[2017-04-06 05:44] LABS: BASOPHIL # 0.1 10^3/ul (0.0-0.1); BASOPHILS % 0.5 % (0.0-2.0); EOSINOPHILS # 0.2 10^3/ul (0.0-0.5); HEMATOCRIT 41.8 % (42.0-52.0); HEMOGLOBIN 13.8 g/dl (14.0-18.0); LYMPHOCYTES # 2.2 10^3/ul (0.8-2.9); LYMPHOCYTES % 22.8 % (15.0-51.0); MEAN CORPUSCULAR HEMOGLOBIN 26.5 pg (29.0-33.0); MEAN CORPUSCULAR VOLUME 80.2 fl (82.0-101.0); MEAN PLATELET VOLUME 11.2 fl (7.4-10.4); MONOCYTE # 0.9 10^3/ul (0.3-0.9); NEUTROPHIL # 6.2 10^3/ul (1.6-7.5); NEUTROPHILS % 65.3 % (39.0-77.0); PLATELET COUNT 232 10^3/UL (140-415); RED BLOOD COUNT 5.21 10^6/ul (4.70-6.10); RED CELL DISTRIBUTION WIDTH 12.9 % (11.5-14.5); WHITE BLOOD COUNT 9.5 10^3/ul (4.8-10.8)
[2017-04-06 06:27] LABS: CALCIUM 9.3 mg/dl (8.4-10.2); CREATININE 1.06 mg/dl (0.61-1.24); POTASSIUM 4.6 mmol/L (3.5-5.1)
[2017-04-06] MEDS: HYDROCODONE/APAP (10/325) TAB PO PRN ×3 (06:50→19:05)
[2017-04-06 07:42] VITALS: BP 146/69; RESP 18
[2017-04-06] MEDS ORDERED: INSULIN DETEMIR [LEVEMIR] 3ML CART SC SCH (08:00)
[2017-04-06] MEDS: DOCUSATE SODIUM 100 MG CAP PO SCH ×2 (08:44→21:21)
[2017-04-06] MEDS: LINAGLIPTIN 5 MG TABLET PO SCH (08:44)
[2017-04-06] MEDS: ASPIRIN (EC) 325 MG TAB PO SCH (08:44)
[2017-04-06] MEDS: metFORMIN 500 MG TAB PO SCH ×2 (08:44→18:11)
[2017-04-06] MEDS: PANTOPRAZOLE (EC) 40 MG TAB PO SCH (08:45)
[2017-04-06] MEDS: METOPROLOL (XL) 100 MG TAB PO SCH (08:45)
[2017-04-06] MEDS: PIOGLITAZONE 15 MG TAB PO SCH (08:46)
[2017-04-06] MEDS: LISINOPRIL 20 MG TAB PO SCH (08:46)
[2017-04-06] MEDS: INSULIN ASPART [NOVOLOG] 3 ML PEN SC SCH ×7 (08:50→21:25)
--- NOTE | 2017-04-06 09:44 | CONS ---
Date/Time of Note Date/Time of Note DATE: 04/06/17 TIME: 09:42 Assessment/Plan Assessment/Plan Additional Assessment/Plan 1. Status post fall, mechanical by description-NL EF by echo/negative trop - of tele now, no palpitations noted 2. Left pneumothorax-secondary to rib fx - improved - still on O2 3. Pneumomediastinum. Left lower neck and left posterolateral chest wall subcutaneous emphysema. 4. Abnormal electrocardiogram- no CPnow. 5. Dyspnea. 6. DM with elevated BS - Rx as needed 7. H/O PTCA/stent-most recent 1 year prior Consultation Date/Type/Reason Admit Date/Time Apr 04, 2017 at 19:04 Initial Consult Date 04/05/17 Type of Consultation: cardiology Referring Provider: DARIEN FERNANDEZ 24 HR Interval Summary Free Text/Dictation NO acute events - pt stable overall -no CP noted ROS: No fever, no chills, no nausea, no vomiting, no diarrhea/constipation No recent weight changes No chest pain, no PND, no orthopnea - improved SOB No dizziness, blurred vision No thirst, no heat or cold intolerance Exam/Review of Systems Vital Signs Vitals Vital Signs Date Time Temp Pulse Resp B/P Pulse Ox O2 Delivery O2 Flow Rate FiO2 04/06/17 07:42 98.0 79 18 146/69 100 04/06/17 02:10 Room Air 04/05/17 20:00 10.0 Intake and Output 04/05/17 04/05/17 04/06/17 15:00 23:00 07:00 Intake Total 860 ml 540 ml Balance 860 ml 540 ml Exam General: WN/WD/NAD, AOx 3 HEENT: Unicetric/atraumatic/EOMI (follows commands) NECK: JVD elevated, no thyromegaly Lymph: no lymphadenopathy HEART: regular with no S3, II/ systolic murmur at apex LUNGS: Coarse sounds ABD: soft, NT, ND, +BS : Intact Neuro: non focal SKIN: chronic changes EXT: trace edema Results Result Diagram: 04/06/17 0457 04/06/17 0457 Results 24 hrs Laboratory Tests Test 04/05/17 12:12 04/05/17 18:01 04/05/17 20:36 04/06/17 01:41 Bedside Glucose 307 H 237 H 295 H 254 H Test 04/06/17 04:57 04/06/17 08:42 White Blood Count 9.5 Red Blood Count 5.21 Hemoglobin 13.8 L Hematocrit 41.8 L Mean Corpuscular Volume 80.2 L Mean Corpuscular Hemoglobin 26.5 L Mean Corpuscular Hemoglobin Concent 33.0 Red Cell Distribution Width 12.9 Platelet Count 232 Mean Platelet Volume 11.2 H Neutrophils % 65.3 Lymphocytes % 22.8 Monocytes % 9.0 Eosinophils % 2.0 Basophils % 0.5 Nucleated Red Blood Cells % 0.0 Neutrophils # 6.2 Lymphocytes # 2.2 Monocytes # 0.9 Eosinophils # 0.2 Basophils # 0.1 Nucleated Red Blood Cells # 0.0 Sodium Level 136 Potassium Level 4.6 Chloride Level 102 Carbon Dioxide Level 27 Anion Gap 12 Blood Urea Nitrogen 21 H Creatinine 1.06 Glucose Level 282 H Calcium Level 9.3 Bedside Glucose 317 H Medications Medications Current Medications Aspirin (Ecotrin) 325 mg DAILY PO Last administered on 04/06/17 08:44; Admin Dose 325 MG; Start 04/04/17 at 09:00 Clonazepam (Klonopin) 0.5 mg QHS PRN PO ANXIETY; Start 04/04/17 at 01:00 Lisinopril (Zestril) 20 mg DAILY PO Last administered on 04/06/17 08:46; Admin Dose 20 MG; Start 04/04/17 at 09:00 Metoprolol Succinate (Toprol Xl) 100 mg DAILY PO Last administered on 08:45; Admin Dose 100 MG; Start 04/04/17 at 09:00 Pantoprazole (Protonix Tab) 40 mg DAILY PO Last administered on 04/06/17 08: 45; Admin Dose 40 MG; Start 04/04/17 at 09:00 Atorvastatin Calcium (Lipitor) 20 mg HS PO Last administered on 04/05/17 20:39 ; Admin Dose 20 MG; Start 04/04/17 at 21:00 Miscellaneous Information 1 ea NOTE XX ; Start 04/04/17 at 01:00 Glucose (Glutose) 15 gm Q15M PRN PO DECREASED GLUCOSE; Start 04/04/17 at 01:00 Glucose (Glutose) 22.5 gm Q15M PRN PO DECREASED GLUCOSE; Start 04/04/17 at 01: 00 Dextrose (D50w Syringe) 25 ml Q15M PRN IV DECREASED GLUCOSE; Start 04/04/17 at 01:00 Dextrose (D50w Syringe) 50 ml Q15M PRN IV DECREASED GLUCOSE; Start 04/04/17 at 01:00 Glucagon (Glucagen) 1 mg Q15M PRN IM DECREASED GLUCOSE; Start 04/04/17 at 01:00 Glucose (Glutose) 15 gm Q15M PRN BUCCAL DECREASED GLUCOSE; Start 04/04/17 at 01 :00 Acetaminophen (Tylenol Tab) 650 mg Q6H PRN PO PAIN AND OR ELEVATED TEMP; Start 04/04/17 at 01:00 Acetaminophen/ Hydrocodone Bitart ([place] (10)) 1 tab Q4H PRN PO PAIN Last administered on 04/06/17 06:50; Admin Dose 1 TAB; Start 04/04/17 at 01:00 Morphine Sulfate (morphine) 2 mg Q4H PRN IV pain Last administered on 03:25; Admin Dose 2 MG; Start 04/04/17 at 01:00 Ondansetron HCl (Zofran Inj) 4 mg Q6H PRN IV NAUSEA AND/OR VOMITING; Start 04/04/17 at 01:00 Diagnostic Test (Pha) (Accu-Chek) 1 ea 02 XX Last administered on 04/06/17 01 :42; Admin Dose 1 EA; Start 04/04/17 at 02:00 Diagnostic Test (Pha) (Accu-Chek) 1 ea 02 XX Last administered on 04/06/17 01 :42; Admin Dose 1 EA; Start 04/04/17 at 02:00 Docusate Sodium (Colace) 100 mg BID PO Last administered on 04/06/17 08:44; Admin Dose 100 MG; Start 04/04/17 at 14:00 Insulin Detemir (Levemir) 27 unit DAILY@08 SC Last administered on 04/06/17 08:49; Admin Dose 27 UNIT; Start 04/06/17 at 08:00 Pioglitazone HCl (Actos) 15 mg DAILY PO Last administered on 04/06/17 08:46; Admin Dose 15 MG; Start 04/06/17 at 09:00 Linagliptin (Tradjenta) 5 mg DAILY PO Last administered on 10/10/17at 08:44; Admin Dose 5 MG; Start 04/06/17 at 09:00 RICKIE MOTLEY MD Apr 06, 2017 09:44
--- NOTE | 2017-04-06 13:56 | CONS ---
Date/Time of Note Date/Time of Note DATE: 04/06/17 TIME: 13:54 Assessment/Plan Assessment/Plan Additional Assessment/Plan Assessment and recommendations; 1. Patient admitted with fall resulting in very small left apical pneumothorax with complete radiological resolution. 2. Cough. 3. History of diabetes and hypertension. Patient can be discharged home provided he does not have exertional hypoxemia. I will also order cough syrup every 4 hours as needed. Consultation Date/Type/Reason Admit Date/Time Apr 04, 2017 at 19:04 Type of Consultation: Pulmonary Referring Provider: DARIEN FERNANDEZ 24 HR Interval Summary Free Text/Dictation Patient's condition is stable. Remains awake alert. Denies any shortness of breath, chest pain. Complains of mild dyspnea on exertion. General exam; middle-aged male, awake alert currently in no distress. Exam/Review of Systems Vital Signs Vitals Vital Signs Date Time Temp Pulse Resp B/P Pulse Ox O2 Delivery O2 Flow Rate FiO2 04/06/17 07:42 98.0 79 18 146/69 100 04/06/17 02:10 Room Air 04/05/17 20:00 10.0 Intake and Output 04/05/17 04/05/17 04/06/17 15:00 23:00 07:00 Intake Total 860 ml 540 ml Balance 860 ml 540 ml Exam HEENT exam; supple neck, no JVD. No lymphadenopathy. Midline trachea. No thyromegaly. Has fair dentition. Pharynx is clear. Chest exam; clear to auscultation. S1-S2 audible, no murmurs. Regular rhythm. Abdomen exam; soft, nontender. No organomegaly. Bowel sounds audible. Extremities; no peripheral edema. Pulses 2+ bilaterally. PROJECT MANAGER exam; no focal deficit. Results Result Diagram: 04/06/17 0457 04/06/17 0457 Results 24 hrs Laboratory Tests Test 04/05/17 18:01 04/05/17 20:36 04/06/17 01:41 04/06/17 04:57 Bedside Glucose 237 H 295 H 254 H White Blood Count 9.5 Red Blood Count 5.21 Hemoglobin 13.8 L Hematocrit 41.8 L Mean Corpuscular Volume 80.2 L Mean Corpuscular Hemoglobin 26.5 L Mean Corpuscular Hemoglobin Concent 33.0 Red Cell Distribution Width 12.9 Platelet Count 232 Mean Platelet Volume 11.2 H Neutrophils % 65.3 Lymphocytes % 22.8 Monocytes % 9.0 Eosinophils % 2.0 Basophils % 0.5 Nucleated Red Blood Cells % 0.0 Neutrophils # 6.2 Lymphocytes # 2.2 Monocytes # 0.9 Eosinophils # 0.2 Basophils # 0.1 Nucleated Red Blood Cells # 0.0 Sodium Level 136 Potassium Level 4.6 Chloride Level 102 Carbon Dioxide Level 27 Anion Gap 12 Blood Urea Nitrogen 21 H Creatinine 1.06 Glucose Level 282 H Calcium Level 9.3 Test 04/06/17 08:42 04/06/17 12:17 Bedside Glucose 317 H 231 H Medications Medications Current Medications Aspirin (Ecotrin) 325 mg DAILY PO Last administered on 04/06/17 08:44; Admin Dose 325 MG; Start 04/04/17 at 09:00 Clonazepam (Klonopin) 0.5 mg QHS PRN PO ANXIETY; Start 04/04/17 at 01:00 Lisinopril (Zestril) 20 mg DAILY PO Last administered on 04/06/17 08:46; Admin Dose 20 MG; Start 04/04/17 at 09:00 Metoprolol Succinate (Toprol Xl) 100 mg DAILY PO Last administered on 08:45; Admin Dose 100 MG; Start 04/04/17 at 09:00 Pantoprazole (Protonix Tab) 40 mg DAILY PO Last administered on 04/06/17 08: 45; Admin Dose 40 MG; Start 04/04/17 at 09:00 Atorvastatin Calcium (Lipitor) 20 mg HS PO Last administered on 04/05/17 20:39 ; Admin Dose 20 MG; Start 04/04/17 at 21:00 Miscellaneous Information 1 ea NOTE XX ; Start 04/04/17 at 01:00 Glucose (Glutose) 15 gm Q15M PRN PO DECREASED GLUCOSE; Start 04/04/17 at 01:00 Glucose (Glutose) 22.5 gm Q15M PRN PO DECREASED GLUCOSE; Start 04/04/17 at 01: 00 Dextrose (D50w Syringe) 25 ml Q15M PRN IV DECREASED GLUCOSE; Start 04/04/17 at 01:00 Dextrose (D50w Syringe) 50 ml Q15M PRN IV DECREASED GLUCOSE; Start 04/04/17 at 01:00 Glucagon (Glucagen) 1 mg Q15M PRN IM DECREASED GLUCOSE; Start 04/04/17 at 01:00 Glucose (Glutose) 15 gm Q15M PRN BUCCAL DECREASED GLUCOSE; Start 04/04/17 at 01 :00 Acetaminophen (Tylenol Tab) 650 mg Q6H PRN PO PAIN AND OR ELEVATED TEMP; Start 04/04/17 at 01:00 Acetaminophen/ Hydrocodone Bitart ([place] (10/325)) 1 tab Q4H PRN PO PAIN Last administered on 04/06/17 12:37; Admin Dose 1 TAB; Start 04/04/17 at 01:00 Morphine Sulfate (morphine) 2 mg Q4H PRN IV pain Last administered on 03:25; Admin Dose 2 MG; Start 04/04/17 at 01:00 Ondansetron HCl (Zofran Inj) 4 mg Q6H PRN IV NAUSEA AND/OR VOMITING; Start 04/04/17 at 01:00 Diagnostic Test (Pha) (Accu-Chek) 1 ea 02 XX Last administered on 04/06/17 01 :42; Admin Dose 1 EA; Start 04/04/17 at 02:00 Diagnostic Test (Pha) (Accu-Chek) 1 ea 02 XX Last administered on 04/06/17 01 :42; Admin Dose 1 EA; Start 04/04/17 at 02:00 Docusate Sodium (Colace) 100 mg BID PO Last administered on 04/06/17 08:44; Admin Dose 100 MG; Start 04/04/17 at 14:00 Pioglitazone HCl (Actos) 15 mg DAILY PO Last administered on 04/06/17 08:46; Admin Dose 15 MG; Start 04/06/17 at 09:00 Linagliptin (Tradjenta) 5 mg DAILY PO Last administered on 04/06/17 08:44; Admin Dose 5 MG; Start 04/06/17 at 09:00 Insulin Detemir (Levemir) 36 unit DAILY@08 SC ; Start 04/07/17 at 08:00 JASIEL LAMBERT Apr 06, 2017 13:56
[2017-04-06 14:55] VITALS: BP 115/64; RESP 18
[2017-04-06] MEDS: GUAIFENESIN/DM 5ML CUP PO PRN (16:27)
[2017-04-06] MEDS ORDERED: POLYETHYLENE GLYCOL 17 GM PACKET PO PRN (17:00)
[2017-04-06] MEDS: POLYETHYLENE GLYCOL 17 GM PACKET PO PRN (17:01)
--- NOTE | 2017-04-06 17:16 | PN ---
Date/Time of Note Date/Time of Note DATE: 04/06/17 TIME: 17:12 Assessment/Plan VTE Prophylaxis VTE Prophylaxis Intervention: SCD's Lines/Catheters IV [facility]from [facility] [place] Urinary Cath still in place: No Assessment/Plan Chief Complaint/Hosp Course Patient complains of sharp pain with movement and constipation, continues to have elevated blood sugar. Oxygen saturation is stable on room air. Will start patient on bowel regimen, patient was poorly controlled diabetes mellitus will anticipate discharge once patient's blood glucose will be more stable Assessment/Plan - Small left pneumothorax s/p rib fx after a fall. Dr. Corrigan is following in pulmonology consultation - Posterior left eighth rib fracture. - S/p fall - CAD, with multiple stents placement done by Dr. Clifford - HTN, continue metoprolol - Insulin-dependent diabetes mellitus, poorly controlled with hemoglobin A1c 12.3. Continue Lantus pre-meal NovoLog and NovoLog per mild algorithm sliding scale. Dr. Gray endocrinology consultation is appreciated. - Hyperlipidemia, continue statin - GERD Further recommendations based on clinical course. Plan of care discussed with Dr. Villalpando. Problems: Exam/Review of Systems Vital Signs Vitals Vital Signs Date Time Temp Pulse Resp B/P Pulse Ox O2 Delivery O2 Flow Rate FiO2 04/06/17 14:55 97.9 76 18 115/64 100 04/06/17 02:10 Room Air 04/05/17 20:00 10.0 Intake and Output 04/05/17 04/05/17 04/06/17 15:00 23:00 07:00 Intake Total 860 ml 540 ml Balance 860 ml 540 ml Exam Constitutional: alert, oriented Head: normocephalic Neck: supple Respiratory: normal air movement Cardiovascular: nl pulses Gastrointestinal: non-tender, soft Extremities: normal pulses Results Result Diagram: 04/06/17 0457 04/06/17 0457 Results 24 hrs Laboratory Tests Test 04/05/17 18:01 04/05/17 20:36 04/06/17 01:41 04/06/17 04:57 Bedside Glucose 237 H 295 H 254 H White Blood Count 9.5 Red Blood Count 5.21 Hemoglobin 13.8 L Hematocrit 41.8 L Mean Corpuscular Volume 80.2 L Mean Corpuscular Hemoglobin 26.5 L Mean Corpuscular Hemoglobin Concent 33.0 Red Cell Distribution Width 12.9 Platelet Count 232 Mean Platelet Volume 11.2 H Neutrophils % 65.3 Lymphocytes % 22.8 Monocytes % 9.0 Eosinophils % 2.0 Basophils % 0.5 Nucleated Red Blood Cells % 0.0 Neutrophils # 6.2 Lymphocytes # 2.2 Monocytes # 0.9 Eosinophils # 0.2 Basophils # 0.1 Nucleated Red Blood Cells # 0.0 Sodium Level 136 Potassium Level 4.6 Chloride Level 102 Carbon Dioxide Level 27 Anion Gap 12 Blood Urea Nitrogen 21 H Creatinine 1.06 Glucose Level 282 H Calcium Level 9.3 Test 04/06/17 08:42 04/06/17 12:17 Bedside Glucose 317 H 231 H Medications Medications Current Medications Aspirin (Ecotrin) 325 mg DAILY PO Last administered on 04/06/17 08:44; Admin Dose 325 MG; Start 04/04/17 at 09:00 Clonazepam (Klonopin) 0.5 mg QHS PRN PO ANXIETY; Start 04/04/17 at 01:00 Lisinopril (Zestril) 20 mg DAILY PO Last administered on 04/06/17 08:46; Admin Dose 20 MG; Start 04/04/17 at 09:00 Metoprolol Succinate (Toprol Xl) 100 mg DAILY PO Last administered on 08:45; Admin Dose 100 MG; Start 04/04/17 at 09:00 Pantoprazole (Protonix Tab) 40 mg DAILY PO Last administered on 04/06/17 08: 45; Admin Dose 40 MG; Start 04/04/17 at 09:00 Atorvastatin Calcium (Lipitor) 20 mg HS PO Last administered on 04/05/17 20:39 ; Admin Dose 20 MG; Start 04/04/17 at 21:00 Miscellaneous Information 1 ea NOTE XX ; Start 04/04/17 at 01:00 Glucose (Glutose) 15 gm Q15M PRN PO DECREASED GLUCOSE; Start 04/04/17 at 01:00 Glucose (Glutose) 22.5 gm Q15M PRN PO DECREASED GLUCOSE; Start 04/04/17 at 01: 00 Dextrose (D50w Syringe) 25 ml Q15M PRN IV DECREASED GLUCOSE; Start 04/04/17 at 01:00 Dextrose (D50w Syringe) 50 ml Q15M PRN IV DECREASED GLUCOSE; Start 04/04/17 at 01:00 Glucagon (Glucagen) 1 mg Q15M PRN IM DECREASED GLUCOSE; Start 04/04/17 at 01:00 Glucose (Glutose) 15 gm Q15M PRN BUCCAL DECREASED GLUCOSE; Start 04/04/17 at 01 :00 Acetaminophen (Tylenol Tab) 650 mg Q6H PRN PO PAIN AND OR ELEVATED TEMP; Start 04/04/17 at 01:00 Acetaminophen/ Hydrocodone Bitart ([place] (10/325)) 1 tab Q4H PRN PO PAIN Last administered on 04/06/17 12:37; Admin Dose 1 TAB; Start 04/04/17 at 01:00 Morphine Sulfate (morphine) 2 mg Q4H PRN IV pain Last administered on 03:25; Admin Dose 2 MG; Start 04/04/17 at 01:00 Ondansetron HCl (Zofran Inj) 4 mg Q6H PRN IV NAUSEA AND/OR VOMITING; Start 04/04/17 at 01:00 Diagnostic Test (Pha) (Accu-Chek) 1 ea 02 XX Last administered on 04/06/17 01 :42; Admin Dose 1 EA; Start 04/04/17 at 02:00 Docusate Sodium (Colace) 100 mg BID PO Last administered on 04/06/17 08:44; Admin Dose 100 MG; Start 04/04/17 at 14:00 Pioglitazone HCl (Actos) 15 mg DAILY PO Last administered on 04/06/17 08:46; Admin Dose 15 MG; Start 04/06/17 at 09:00 Linagliptin (Tradjenta) 5 mg DAILY PO Last administered on 04/06/17 08:44; Admin Dose 5 MG; Start 04/06/17 at 09:00 Insulin Detemir (Levemir) 36 unit DAILY@08 SC ; Start 04/07/17 at 08:00 Guaifenesin/ Dextromethorphan (Robitussin Dm Liquid Cup) 5 ml Q4H PRN PO COUGH Last administered on 04/06/17 16:27; Admin Dose 5 ML; Start 04/06/17 at 14:00 Polyethylene Glycol (Miralax) 17 gm BID PRN PO CONSTIPATION Last administered on 04/06/17 17:01; Admin Dose 17 GM; Start 04/06/17 at 17:00 DARIEN FERNANDEZ Apr 06, 2017 17:16
--- NOTE | 2017-04-06 17:41 | CONS ---
Date/Time of Note Date/Time of Note DATE: 04/06/17 TIME: 17:37 Assessment/Plan Assessment/Plan Problems: (1) Diabetes mellitus type 2 in obese Status: Chronic Comment: Patient remains hyperglycemic. Will increase Levemir from 27 to 36 units subcu every morning and increase NovoLog from 9 to 15 units before meals. Reevaluate tomorrow Consultation Date/Type/Reason Admit Date/Time Apr 04, 2017 at 19:04 Initial Consult Date 04/05/17 Type of Consultation: Endocrinology Reason for Consultation Type 2 diabetes mellitus out of control Referring Provider: DARIEN FERNANDEZ 24 HR Interval Summary Constitutional: no complaints Detailed Summary Respiratory: pain (Left posterior chest), No shortness of breath Cardiovascular: no complaints Gastrointestinal: no complaints Genitourinary: no complaints Musculoskeletal: no complaints Neurologic: no complaints Exam/Review of Systems Vital Signs Vitals VS - Last 72 Hours, by Label Date Time Temp Pulse Resp B/P Pulse Ox O2 Delivery O2 Flow Rate FiO2 04/06/17 14:55 97.9 76 18 115/64 100 04/06/17 07:42 98.0 79 18 146/69 100 04/06/17 02:10 98.4 85 20 108/53 97 Room Air 04/05/17 20:00 Simple Mask 10.0 04/05/17 19:25 98.1 101 20 134/68 97 04/05/17 08:00 Simple Mask 10.0 04/05/17 07:45 98.0 86 19 127/76 98 04/05/17 02:48 98.0 78 19 124/68 100 04/04/17 20:24 98.7 84 19 128/70 100 04/04/17 20:10 Simple Mask 10.0 04/04/17 14:00 98.5 83 18 120/71 95 04/04/17 08:00 98.6 99 16 145/72 98 04/04/17 00:10 98.7 105 20 132/78 96 Room Air 04/03/17 23:05 86 20 151/98 99 Room Air 04/03/17 21:05 98.5 101 18 140/72 97 Room Air 04/03/17 20:18 98.5 98 18 120/66 99 Room Air 04/03/17 18:43 98.6 107 17 144/88 100 Vital Signs Date Time Temp Pulse Resp B/P Pulse Ox O2 Delivery O2 Flow Rate FiO2 04/06/17 14:55 97.9 76 18 115/64 100 04/06/17 02:10 Room Air 04/05/17 20:00 10.0 Intake and Output 04/05/17 04/05/17 04/06/17 15:00 23:00 07:00 Intake Total 860 ml 540 ml Balance 860 ml 540 ml Exam Constitutional: alert, obese, oriented Respiratory: clear to auscultation, normal air movement Cardiovascular: nl pulses, regular rate and rhythm, No edema, No murmurs/extra sounds, No rub Gastrointestinal: bowel sounds, nl liver, spleen, non-tender, soft, No mass, No rebound or guarding Musculoskeletal: nl extremities to inspection Extremities: normal pulses, No clubbing, No cyanosis, No edema Neurological: VP ANCILLARY II-XII intact, nl mental status, nl speech, nl strength Additional Comments Bedside Glucose - 72 Hours Test 04/04/17 00:11 04/04/17 01:49 04/04/17 02:40 04/04/17 08:35 Bedside Glucose 397mg/dL (70-220) H 454mg/dL (70-220) *H 423mg/dL (70-220) *H 264mg/dL (70-220) H Test 04/04/17 12:18 04/04/17 17:27 04/04/17 20:49 04/05/17 01:49 Bedside Glucose 270mg/dL (70-220) H 290mg/dL (70-220) H 259mg/dL (70-220) H 257mg/dL (70-220) H Test 04/05/17 08:29 04/05/17 12:12 04/05/17 18:01 04/05/17 20:36 Bedside Glucose 268mg/dL (70-220) H 307mg/dL (70-220) H 237mg/dL (70-220) H 295mg/dL (70-220) H Test 04/06/17 01:41 04/06/17 08:42 04/06/17 12:17 Bedside Glucose 254mg/dL (70-220) H 317mg/dL (70-220) H 231mg/dL (70-220) H Results Result Diagram: 04/06/17 0457 04/06/17 0457 Results 24 hrs Laboratory Tests Test 04/05/17 18:01 04/05/17 20:36 04/06/17 01:41 04/06/17 04:57 Bedside Glucose 237 H 295 H 254 H White Blood Count 9.5 Red Blood Count 5.21 Hemoglobin 13.8 L Hematocrit 41.8 L Mean Corpuscular Volume 80.2 L Mean Corpuscular Hemoglobin 26.5 L Mean Corpuscular Hemoglobin Concent 33.0 Red Cell Distribution Width 12.9 Platelet Count 232 Mean Platelet Volume 11.2 H Neutrophils % 65.3 Lymphocytes % 22.8 Monocytes % 9.0 Eosinophils % 2.0 Basophils % 0.5 Nucleated Red Blood Cells % 0.0 Neutrophils # 6.2 Lymphocytes # 2.2 Monocytes # 0.9 Eosinophils # 0.2 Basophils # 0.1 Nucleated Red Blood Cells # 0.0 Sodium Level 136 Potassium Level 4.6 Chloride Level 102 Carbon Dioxide Level 27 Anion Gap 12 Blood Urea Nitrogen 21 H Creatinine 1.06 Glucose Level 282 H Calcium Level 9.3 Test 04/06/17 08:42 04/06/17 12:17 Bedside Glucose 317 H 231 H Medications Medications Current Medications Aspirin (Ecotrin) 325 mg DAILY PO Last administered on 04/06/17 08:44; Admin Dose 325 MG; Start 04/04/17 at 09:00 Clonazepam (Klonopin) 0.5 mg QHS PRN PO ANXIETY; Start 04/04/17 at 01:00 Lisinopril (Zestril) 20 mg DAILY PO Last administered on 04/06/17 08:46; Admin Dose 20 MG; Start 04/04/17 at 09:00 Metoprolol Succinate (Toprol Xl) 100 mg DAILY PO Last administered on 08:45; Admin Dose 100 MG; Start 04/04/17 at 09:00 Pantoprazole (Protonix Tab) 40 mg DAILY PO Last administered on 04/06/17 08: 45; Admin Dose 40 MG; Start 04/04/17 at 09:00 Atorvastatin Calcium (Lipitor) 20 mg HS PO Last administered on 04/05/17 20:39 ; Admin Dose 20 MG; Start 04/04/17 at 21:00 Miscellaneous Information 1 ea NOTE XX ; Start 04/04/17 at 01:00 Glucose (Glutose) 15 gm Q15M PRN PO DECREASED GLUCOSE; Start 04/04/17 at 01:00 Glucose (Glutose) 22.5 gm Q15M PRN PO DECREASED GLUCOSE; Start 04/04/17 at 01: 00 Dextrose (D50w Syringe) 25 ml Q15M PRN IV DECREASED GLUCOSE; Start 04/04/17 at 01:00 Dextrose (D50w Syringe) 50 ml Q15M PRN IV DECREASED GLUCOSE; Start 04/04/17 at 01:00 Glucagon (Glucagen) 1 mg Q15M PRN IM DECREASED GLUCOSE; Start 04/04/17 at 01:00 Glucose (Glutose) 15 gm Q15M PRN BUCCAL DECREASED GLUCOSE; Start 04/04/17 at 01 :00 Acetaminophen (Tylenol Tab) 650 mg Q6H PRN PO PAIN AND OR ELEVATED TEMP; Start 04/04/17 at 01:00 Acetaminophen/ Hydrocodone Bitart ([place] (10/325)) 1 tab Q4H PRN PO PAIN Last administered on 04/06/17 12:37; Admin Dose 1 TAB; Start 04/04/17 at 01:00 Morphine Sulfate (morphine) 2 mg Q4H PRN IV pain Last administered on 03:25; Admin Dose 2 MG; Start 04/04/17 at 01:00 Ondansetron HCl (Zofran Inj) 4 mg Q6H PRN IV NAUSEA AND/OR VOMITING; Start 04/04/17 at 01:00 Diagnostic Test (Pha) (Accu-Chek) 1 ea 02 XX Last administered on 04/06/17 01 :42; Admin Dose 1 EA; Start 04/04/17 at 02:00 Docusate Sodium (Colace) 100 mg BID PO Last administered on 04/06/17 08:44; Admin Dose 100 MG; Start 04/04/17 at 14:00 Pioglitazone HCl (Actos) 15 mg DAILY PO Last administered on 04/06/17 08:46; Admin Dose 15 MG; Start 04/06/17 at 09:00 Linagliptin (Tradjenta) 5 mg DAILY PO Last administered on 04/06/17 08:44; Admin Dose 5 MG; Start 04/06/17 at 09:00 Insulin Detemir (Levemir) 36 unit DAILY@08 SC ; Start 04/07/17 at 08:00 Guaifenesin/ Dextromethorphan (Robitussin Dm Liquid Cup) 5 ml Q4H PRN PO COUGH Last administered on 04/06/17 16:27; Admin Dose 5 ML; Start 04/06/17 at 14:00 Polyethylene Glycol (Miralax) 17 gm BID PRN PO CONSTIPATION Last administered on 04/06/17 17:01; Admin Dose 17 GM; Start 04/06/17 at 17:00 JOSE G OLMOS MD Apr 06, 2017 17:41
[2017-04-06 19:15] VITALS: BP 147/74; RESP 19
[2017-04-06] MEDS: ATORVASTATIN 20 MG TAB PO SCH (21:21)
[2017-04-07] MEDS: POLYETHYLENE GLYCOL 17 GM PACKET PO PRN ×2 (01:00→11:28)
[2017-04-07] MEDS: GUAIFENESIN/DM 5ML CUP PO PRN (01:01)
[2017-04-07] MEDS: HYDROCODONE/APAP (10/325) TAB PO PRN ×4 (01:02→16:13)
[2017-04-07 02:00] VITALS: BP 148/75; RESP 20
[2017-04-07] MEDS: ACCU-CHEK XX SCH (02:47)
[2017-04-07 05:49] LABS: BASOPHIL # 0.1 10^3/ul (0.0-0.1); BASOPHILS % 0.4 % (0.0-2.0); EOSINOPHILS # 0.2 10^3/ul (0.0-0.5); HEMATOCRIT 41.6 % (42.0-52.0); HEMOGLOBIN 13.4 g/dl (14.0-18.0); LYMPHOCYTES # 1.9 10^3/ul (0.8-2.9); LYMPHOCYTES % 16.2 % (15.0-51.0); MEAN CORPUSCULAR HEMOGLOBIN 25.7 pg (29.0-33.0); MEAN CORPUSCULAR HGB CONC 32.2 g/dl (32.0-37.0); MEAN CORPUSCULAR VOLUME 79.8 fl (82.0-101.0); MEAN PLATELET VOLUME 11.1 fl (7.4-10.4); MONOCYTE # 0.7 10^3/ul (0.3-0.9); NEUTROPHIL # 8.9 10^3/ul (1.6-7.5); NEUTROPHILS % 74.8 % (39.0-77.0); PLATELET COUNT 241 10^3/UL (140-415); RED BLOOD COUNT 5.21 10^6/ul (4.70-6.10); RED CELL DISTRIBUTION WIDTH 13.2 % (11.5-14.5); WHITE BLOOD COUNT 11.9 10^3/ul (4.8-10.8)
[2017-04-07 06:30] LABS: CALCIUM 9.4 mg/dl (8.4-10.2); CREATININE 0.97 mg/dl (0.61-1.24)
[2017-04-07 07:45] VITALS: BP 147/76; RESP 20
[2017-04-07] MEDS ORDERED: INSULIN DETEMIR [LEVEMIR] 3ML CART SC SCH (08:00)
[2017-04-07] MEDS: ASPIRIN (EC) 325 MG TAB PO SCH (08:37)
[2017-04-07] MEDS: PIOGLITAZONE 15 MG TAB PO SCH (08:37)
[2017-04-07] MEDS: INSULIN ASPART [NOVOLOG] 3 ML PEN SC SCH ×5 (08:38→20:48)
[2017-04-07] MEDS: metFORMIN 500 MG TAB PO SCH ×2 (08:40→18:33)
[2017-04-07] MEDS: PANTOPRAZOLE (EC) 40 MG TAB PO SCH (08:41)
[2017-04-07] MEDS: LINAGLIPTIN 5 MG TABLET PO SCH (08:41)
[2017-04-07] MEDS: LISINOPRIL 20 MG TAB PO SCH (08:41)
[2017-04-07] MEDS: METOPROLOL (XL) 100 MG TAB PO SCH (08:41)
[2017-04-07] MEDS: DOCUSATE SODIUM 100 MG CAP PO SCH ×2 (08:41→21:00)
--- NOTE | 2017-04-07 11:58 | CONS ---
Date/Time of Note Date/Time of Note DATE: 04/07/17 TIME: 11:56 Assessment/Plan Assessment/Plan Additional Assessment/Plan Assessment and recommendations; 1. Patient admitted with fall resulting in very small left apical pneumothorax with marked clinical and radiological improvement. 2. History of diabetes and hypertension. 3. Constipation. Consider discharge. Colace 100 mg twice daily has been added for relief of constipation. Patient likely will need to have a sleep study done on an outpatient basis to rule out underlying sleep apnea. Consultation Date/Type/Reason Admit Date/Time Apr 04, 2017 at 19:04 Type of Consultation: Pulmonary Referring Provider: DARIEN FERNANDEZ 24 HR Interval Summary Free Text/Dictation Patient's condition is markedly improved. Denies any chest pain, shortness of breath or cough. Patient complained of constipation. But denies any abdominal pain, nausea or vomiting. General exam; middle-aged male, awake and alert. Currently in no distress. Exam/Review of Systems Vital Signs Vitals Vital Signs Date Time Temp Pulse Resp B/P Pulse Ox O2 Delivery O2 Flow Rate FiO2 04/07/17 07:45 97.7 100 20 147/76 98 04/06/17 02:10 Room Air 04/05/17 20:00 10.0 Intake and Output 04/06/17 04/06/17 04/07/17 15:00 23:00 07:00 Intake Total 1000 ml 500 ml Output Total 1100 ml Balance -100 ml 500 ml Exam HEENT exam; supple neck, no JVD. No lymphadenopathy. Midline trachea. No thyromegaly. Pharynx is clear. She has fair dentition. Chest exam; clear to auscultation. S1-S2 audible, no murmurs. Regular rhythm. Abdomen exam; soft, protuberant. Nontender. Bowel sounds audible. No organomegaly. Extremity exam; no edema. [employer] exam; no focal deficit. Results Result Diagram: 04/07/17 0451 04/07/17 0451 Results 24 hrs Laboratory Tests Test 04/06/17 12:17 04/06/17 17:51 04/06/17 21:20 04/07/17 01:56 Bedside Glucose 231 H 305 H 216 251 H Test 04/07/17 04:51 04/07/17 08:36 White Blood Count 11.9 #H Red Blood Count 5.21 Hemoglobin 13.4 L Hematocrit 41.6 L Mean Corpuscular Volume 79.8 L Mean Corpuscular Hemoglobin 25.7 L Mean Corpuscular Hemoglobin Concent 32.2 Red Cell Distribution Width 13.2 Platelet Count 241 Mean Platelet Volume 11.1 H Neutrophils % 74.8 Lymphocytes % 16.2 Monocytes % 6.0 Eosinophils % 2.0 Basophils % 0.4 Nucleated Red Blood Cells % 0.0 Neutrophils # 8.9 H Lymphocytes # 1.9 Monocytes # 0.7 Eosinophils # 0.2 Basophils # 0.1 Nucleated Red Blood Cells # 0.0 Sodium Level 135 Potassium Level 5.0 Chloride Level 101 Carbon Dioxide Level 25 Anion Gap 14 Blood Urea Nitrogen 21 H Creatinine 0.97 Glucose Level 249 H Calcium Level 9.4 Bedside Glucose 264 H Medications Medications Current Medications Aspirin (Ecotrin) 325 mg DAILY PO Last administered on 04/07/17 08:37; Admin Dose 325 MG; Start 04/04/17 at 09:00 Clonazepam (Klonopin) 0.5 mg QHS PRN PO ANXIETY; Start 04/04/17 at 01:00 Lisinopril (Zestril) 20 mg DAILY PO Last administered on 04/07/17 08:41; Admin Dose 20 MG; Start 04/04/17 at 09:00 Metoprolol Succinate (Toprol Xl) 100 mg DAILY PO Last administered on 08:41; Admin Dose 100 MG; Start 04/04/17 at 09:00 Pantoprazole (Protonix Tab) 40 mg DAILY PO Last administered on 04/07/17 08: 41; Admin Dose 40 MG; Start 04/04/17 at 09:00 Atorvastatin Calcium (Lipitor) 20 mg HS PO Last administered on 04/06/17 21: 21; Admin Dose 20 MG; Start 04/04/17 at 21:00 Miscellaneous Information 1 ea NOTE XX ; Start 04/04/17 at 01:00 Glucose (Glutose) 15 gm Q15M PRN PO DECREASED GLUCOSE; Start 04/04/17 at 01:00 Glucose (Glutose) 22.5 gm Q15M PRN PO DECREASED GLUCOSE; Start 04/04/17 at 01: 00 Dextrose (D50w Syringe) 25 ml Q15M PRN IV DECREASED GLUCOSE; Start 04/04/17 at 01:00 Dextrose (D50w Syringe) 50 ml Q15M PRN IV DECREASED GLUCOSE; Start 04/04/17 at 01:00 Glucagon (Glucagen) 1 mg Q15M PRN IM DECREASED GLUCOSE; Start 04/04/17 at 01:00 Glucose (Glutose) 15 gm Q15M PRN BUCCAL DECREASED GLUCOSE; Start 04/04/17 at 01 :00 Acetaminophen (Tylenol Tab) 650 mg Q6H PRN PO PAIN AND OR ELEVATED TEMP; Start 04/04/17 at 01:00 Acetaminophen/ Hydrocodone Bitart ([place] (10/325)) 1 tab Q4H PRN PO PAIN Last administered on 04/07/17 09:23; Admin Dose 1 TAB; Start 04/04/17 at 01:00 Morphine Sulfate (morphine) 2 mg Q4H PRN IV pain Last administered on 03:25; Admin Dose 2 MG; Start 04/04/17 at 01:00 Ondansetron HCl (Zofran Inj) 4 mg Q6H PRN IV NAUSEA AND/OR VOMITING; Start 04/04/17 at 01:00 Diagnostic Test (Pha) (Accu-Chek) 1 ea 02 XX Last administered on 04/07/17 02 :47; Admin Dose 1 EA; Start 04/04/17 at 02:00 Docusate Sodium (Colace) 100 mg BID PO Last administered on 04/07/17 08:41; Admin Dose 100 MG; Start 04/04/17 at 14:00 Pioglitazone HCl (Actos) 15 mg DAILY PO Last administered on 04/07/17 08:37; Admin Dose 15 MG; Start 04/06/17 at 09:00 Linagliptin (Tradjenta) 5 mg DAILY PO Last administered on 04/07/17 08:41; Admin Dose 5 MG; Start 04/06/17 at 09:00 Insulin Detemir (Levemir) 36 unit DAILY@08 SC Last administered on 04/07/17 08:39; Admin Dose 36 UNIT; Start 04/07/17 at 08:00 Guaifenesin/ Dextromethorphan (Robitussin Dm Liquid Cup) 5 ml Q4H PRN PO COUGH Last administered on 04/07/17 01:01; Admin Dose 5 ML; Start 04/06/17 at 14:00 Polyethylene Glycol (Miralax) 17 gm BID PRN PO CONSTIPATION Last administered on 04/07/17t 11:28; Admin Dose 17 GM; Start 04/06/17 at 17:00 JASIEL LAMBERT Apr 07, 2017 11:58
[2017-04-07] MEDS ORDERED: DOCUSATE SODIUM 100 MG CAP PO SCH (12:00)
--- NOTE | 2017-04-07 15:48 | PN ---
Date/Time of Note Date/Time of Note DATE: 04/07/17 TIME: 15:45 Assessment/Plan VTE Prophylaxis VTE Prophylaxis Intervention: SCD's Lines/Catheters IV Catheter Type (from [place]): [place] Urinary Cath still in place: No Assessment/Plan Chief Complaint/Hosp Course Blood sugar is better but still elevated above 200, constipated, give miralax. Assessment/Plan - Small left pneumothorax s/p rib fx after a fall. Dr. Corrigan is following in pulmonology consultation - Posterior left eighth rib fracture. - S/p fall - CAD, with multiple stents placement done by Dr. Clifford - HTN, continue metoprolol - Insulin-dependent diabetes mellitus, poorly controlled with hemoglobin A1c 12.3. Continue Lantus pre-meal NovoLog and NovoLog per mild algorithm sliding scale. Dr. Gray endocrinology consultation is appreciated. - Hyperlipidemia, continue statin - GERD Further recommendations based on clinical course. Plan of care discussed with Dr. Villalpando. Problems: Exam/Review of Systems Vital Signs Vitals Vital Signs Date Time Temp Pulse Resp B/P Pulse Ox O2 Delivery O2 Flow Rate FiO2 04/07/17 07:45 97.7 100 20 147/76 98 04/06/17 02:10 Room Air 04/05/17 20:00 10.0 Intake and Output 04/06/17 04/06/17 04/07/17 15:00 23:00 07:00 Intake Total 1000 ml 500 ml Output Total 1100 ml Balance -100 ml 500 ml Exam Constitutional: alert, oriented Head: normocephalic Neck: supple Respiratory: normal air movement Cardiovascular: nl pulses Gastrointestinal: non-tender, soft Extremities: normal pulses Results Result Diagram: 04/07/17 0451 04/07/17 0451 Results 24 hrs Laboratory Tests Test 04/06/17 17:51 04/06/17 21:20 04/07/17 01:56 04/07/17 04:51 Bedside Glucose 305 H 216 251 H White Blood Count 11.9 #H Red Blood Count 5.21 Hemoglobin 13.4 L Hematocrit 41.6 L Mean Corpuscular Volume 79.8 L Mean Corpuscular Hemoglobin 25.7 L Mean Corpuscular Hemoglobin Concent 32.2 Red Cell Distribution Width 13.2 Platelet Count 241 Mean Platelet Volume 11.1 H Neutrophils % 74.8 Lymphocytes % 16.2 Monocytes % 6.0 Eosinophils % 2.0 Basophils % 0.4 Nucleated Red Blood Cells % 0.0 Neutrophils # 8.9 H Lymphocytes # 1.9 Monocytes # 0.7 Eosinophils # 0.2 Basophils # 0.1 Nucleated Red Blood Cells # 0.0 Sodium Level 135 Potassium Level 5.0 Chloride Level 101 Carbon Dioxide Level 25 Anion Gap 14 Blood Urea Nitrogen 21 H Creatinine 0.97 Glucose Level 249 H Calcium Level 9.4 Test 04/07/17 08:36 04/07/17 12:17 Bedside Glucose 264 H 272 H Medications Medications Current Medications Aspirin (Ecotrin) 325 mg DAILY PO Last administered on 04/07/17 08:37; Admin Dose 325 MG; Start 04/04/17 at 09:00 Clonazepam (Klonopin) 0.5 mg QHS PRN PO ANXIETY; Start 04/04/17 at 01:00 Lisinopril (Zestril) 20 mg DAILY PO Last administered on 04/07/17 08:41; Admin Dose 20 MG; Start 04/04/17 at 09:00 Metoprolol Succinate (Toprol Xl) 100 mg DAILY PO Last administered on 08:41; Admin Dose 100 MG; Start 04/04/17 at 09:00 Pantoprazole (Protonix Tab) 40 mg DAILY PO Last administered on 04/07/17 08: 41; Admin Dose 40 MG; Start 04/04/17 at 09:00 Atorvastatin Calcium (Lipitor) 20 mg HS PO Last administered on 04/06/17 21: 21; Admin Dose 20 MG; Start 04/04/17 at 21:00 Miscellaneous Information 1 ea NOTE XX ; Start 04/04/17 at 01:00 Glucose (Glutose) 15 gm Q15M PRN PO DECREASED GLUCOSE; Start 04/04/17 at 01:00 Glucose (Glutose) 22.5 gm Q15M PRN PO DECREASED GLUCOSE; Start 04/04/17 at 01: 00 Dextrose (D50w Syringe) 25 ml Q15M PRN IV DECREASED GLUCOSE; Start 04/04/17 at 01:00 Dextrose (D50w Syringe) 50 ml Q15M PRN IV DECREASED GLUCOSE; Start 04/04/17 at 01:00 Glucagon (Glucagen) 1 mg Q15M PRN IM DECREASED GLUCOSE; Start 04/04/17 at 01:00 Glucose (Glutose) 15 gm Q15M PRN BUCCAL DECREASED GLUCOSE; Start 04/04/17 at 01 :00 Acetaminophen (Tylenol Tab) 650 mg Q6H PRN PO PAIN AND OR ELEVATED TEMP; Start 04/04/17 at 01:00 Acetaminophen/ Hydrocodone Bitart ([place] (10/325)) 1 tab Q4H PRN PO PAIN Last administered on 04/07/17 09:23; Admin Dose 1 TAB; Start 04/04/17 at 01:00 Morphine Sulfate (morphine) 2 mg Q4H PRN IV pain Last administered on 03:25; Admin Dose 2 MG; Start 04/04/17 at 01:00 Ondansetron HCl (Zofran Inj) 4 mg Q6H PRN IV NAUSEA AND/OR VOMITING; Start 04/04/17 at 01:00 Diagnostic Test (Pha) (Accu-Chek) 1 ea 02 XX Last administered on 04/07/17 02 :47; Admin Dose 1 EA; Start 04/04/17 at 02:00 Docusate Sodium (Colace) 100 mg BID PO Last administered on 04/07/17 08:41; Admin Dose 100 MG; Start 04/04/17 at 14:00 Pioglitazone HCl (Actos) 15 mg DAILY PO Last administered on 04/07/17 08:37; Admin Dose 15 MG; Start 04/06/17 at 09:00 Linagliptin (Tradjenta) 5 mg DAILY PO Last administered on 04/07/17 08:41; Admin Dose 5 MG; Start 04/06/17 at 09:00 Insulin Detemir (Levemir) 36 unit DAILY@08 SC Last administered on 04/07/17 08:39; Admin Dose 36 UNIT; Start 04/07/17 at 08:00 Guaifenesin/ Dextromethorphan (Robitussin Dm Liquid Cup) 5 ml Q4H PRN PO COUGH Last administered on 04/07/17 01:01; Admin Dose 5 ML; Start 04/06/17 at 14:00 Polyethylene Glycol (Miralax) 17 gm BID PRN PO CONSTIPATION Last administered on 04/07/17 11:28; Admin Dose 17 GM; Start 04/06/17 at 17:00 DARIEN FERNANDEZ Apr 07, 2017 15:48
--- NOTE | 2017-04-07 16:25 | CONS ---
Date/Time of Note Date/Time of Note DATE: 04/07/17 TIME: 16:21 Assessment/Plan Assessment/Plan Chief Complaint/Hosp Course IMP: 1. Status post fall, mechanical by description-NL EF by echo/negative trop 2. Left pneumothorax-secondary to rib fx 3. Pneumomediastinum. Left lower neck and left posterolateral chest wall subcutaneous emphysema. 4. Abnormal electrocardiogram. 5. Dyspnea. 6. DM with elevated BS 7. H/O PTCA/stent-most recent 1 year prior Recc: -Continue asa/? need for plavix depending upon when last stent really placed -Continue BB and make slight increase to ACEI to improve BP control -Continue statin -Follow resp status and serial cxr's with ongoing pulm f/u -Ongoing adjustment of insulin/oral hypoglycemics for uncontrolled BS with endocrine following Problems: Consultation Date/Type/Reason Admit Date/Time Apr 04, 2017 at 19:04 Initial Consult Date 04/05/17 Type of Consultation: cardiology Reason for Consultation h/o stent Referring Provider: DARIEN FERNANDEZ Exam/Review of Systems Vital Signs Vitals Vital Signs Date Time Temp Pulse Resp B/P Pulse Ox O2 Delivery O2 Flow Rate FiO2 04/07/17 07:45 97.7 100 20 147/76 98 04/06/17 02:10 Room Air 04/05/17 20:00 10.0 Intake and Output 04/06/17 04/06/17 04/07/17 15:00 23:00 07:00 Intake Total 1000 ml 500 ml Output Total 1100 ml Balance -100 ml 500 ml Exam Review of Systems: CONSTITUTIONAL: No fevers, chills. PULMONARY: No sob CARDIOVASCULAR: No chest pain/palpitations GASTROINTESTINAL: No nausea/vomiting. GENITOURINARY: No hematuria/dysuria. MUSCULOSKELETAL: No myagias/arthalgias. PSYCHIATRIC: The patient denies depression. NEUROLOGIC: No weakness Constitutional: alert Psych: no complaints Head: normocephalic ENMT: mucosa pink and moist Neck: jvd, supple Respiratory: diminished breath sounds (at bases/B) Cardiovascular: regular rate and rhythm Gastrointestinal: non-tender, soft Musculoskeletal: muscle tone (normal) Extremities: edema (none) Neurological: other (No focal deficits) Results Result Diagram: 04/07/17 0451 04/07/17 045 Results 24 hrs Laboratory Tests Test 04/06/17 17:51 04/06/17 21:20 04/07/17 01:56 04/07/17 04:51 Bedside Glucose 305 H 216 251 H White Blood Count 11.9 #H Red Blood Count 5.21 Hemoglobin 13.4 L Hematocrit 41.6 L Mean Corpuscular Volume 79.8 L Mean Corpuscular Hemoglobin 25.7 L Mean Corpuscular Hemoglobin Concent 32.2 Red Cell Distribution Width 13.2 Platelet Count 241 Mean Platelet Volume 11.1 H Neutrophils % 74.8 Lymphocytes % 16.2 Monocytes % 6.0 Eosinophils % 2.0 Basophils % 0.4 Nucleated Red Blood Cells % 0.0 Neutrophils # 8.9 H Lymphocytes # 1.9 Monocytes # 0.7 Eosinophils # 0.2 Basophils # 0.1 Nucleated Red Blood Cells # 0.0 Sodium Level 135 Potassium Level 5.0 Chloride Level 101 Carbon Dioxide Level 25 Anion Gap 14 Blood Urea Nitrogen 21 H Creatinine 0.97 Glucose Level 249 H Calcium Level 9.4 Test 04/07/17 08:36 04/07/17 12:17 Bedside Glucose 264 H 272 H Medications Medications Current Medications Aspirin (Ecotrin) 325 mg DAILY PO Last administered on 04/07/17 08:37; Admin Dose 325 MG; Start 04/04/17 at 09:00 Clonazepam (Klonopin) 0.5 mg QHS PRN PO ANXIETY; Start 04/04/17 at 01:00 Lisinopril (Zestril) 20 mg DAILY PO Last administered on 04/07/17 08:41; Admin Dose 20 MG; Start 04/04/17 at 09:00 Metoprolol Succinate (Toprol Xl) 100 mg DAILY PO Last administered on 08:41; Admin Dose 100 MG; Start 04/04/17 at 09:00 Pantoprazole (Protonix Tab) 40 mg DAILY PO Last administered on 04/07/17 08: 41; Admin Dose 40 MG; Start 04/04/17 at 09:00 Atorvastatin Calcium (Lipitor) 20 mg HS PO Last administered on 04/06/17 21: 21; Admin Dose 20 MG; Start 04/04/17 at 21:00 Miscellaneous Information 1 ea NOTE XX ; Start 04/04/17 at 01:00 Glucose (Glutose) 15 gm Q15M PRN PO DECREASED GLUCOSE; Start 04/04/17 at 01:00 Glucose (Glutose) 22.5 gm Q15M PRN PO DECREASED GLUCOSE; Start 04/04/17 at 01: 00 Dextrose (D50w Syringe) 25 ml Q15M PRN IV DECREASED GLUCOSE; Start 04/04/17 at 01:00 Dextrose (D50w Syringe) 50 ml Q15M PRN IV DECREASED GLUCOSE; Start 04/04/17 at 01:00 Glucagon (Glucagen) 1 mg Q15M PRN IM DECREASED GLUCOSE; Start 04/04/17 at 01:00 Glucose (Glutose) 15 gm Q15M PRN BUCCAL DECREASED GLUCOSE; Start 04/04/17 at 01 :00 Acetaminophen (Tylenol Tab) 650 mg Q6H PRN PO PAIN AND OR ELEVATED TEMP; Start 04/04/17 at 01:00 Acetaminophen/ Hydrocodone Bitart ([place] (10/325)) 1 tab Q4H PRN PO PAIN Last administered on 04/07/17 16:13; Admin Dose 1 TAB; Start 04/04/17 at 01:00 Morphine Sulfate (morphine) 2 mg Q4H PRN IV pain Last administered on 03:25; Admin Dose 2 MG; Start 04/04/17 at 01:00 Ondansetron HCl (Zofran Inj) 4 mg Q6H PRN IV NAUSEA AND/OR VOMITING; Start 04/04/17 at 01:00 Diagnostic Test (Pha) (Accu-Chek) 1 ea 02 XX Last administered on 04/07/17 02 :47; Admin Dose 1 EA; Start 04/04/17 at 02:00 Docusate Sodium (Colace) 100 mg BID PO Last administered on 04/07/17 08:41; Admin Dose 100 MG; Start 04/04/17 at 14:00 Pioglitazone HCl (Actos) 15 mg DAILY PO Last administered on 04/07/17 08:37; Admin Dose 15 MG; Start 04/06/17 at 09:00 Linagliptin (Tradjenta) 5 mg DAILY PO Last administered on 04/07/17 08:41; Admin Dose 5 MG; Start 04/06/17 at 09:00 Insulin Detemir (Levemir) 36 unit DAILY@08 SC Last administered on 04/07/17 08:39; Admin Dose 36 UNIT; Start 04/07/17 at 08:00 Guaifenesin/ Dextromethorphan (Robitussin Dm Liquid Cup) 5 ml Q4H PRN PO COUGH Last administered on 04/07/17 01:01; Admin Dose 5 ML; Start 04/06/17 at 14:00 Polyethylene Glycol (Miralax) 17 gm BID PRN PO CONSTIPATION Last administered on 04/07/17 11:28; Admin Dose 17 GM; Start 04/06/17 at 17:00 MADALYN GARCIA Apr 07, 2017 16:25
--- NOTE | 2017-04-07 18:42 | CONS ---
Date/Time of Note Date/Time of Note DATE: 04/07/17 TIME: 18:40 Assessment/Plan Assessment/Plan Problems: (1) Diabetes mellitus type 2 in obese Status: Chronic Comment: Blood glucose improving but still remains above goal. Increase Levemir to 45 units subcu every morning and NovoLog to 20 units subcu q. before meals. Will also increase intensity of correctional insulin scale. If patient is clinically improved he does not need to remain in the hospital. Titration of insulin can be accomplished as an outpatient. However it should be stressed that patient be adherent with multidose insulin injection after discharge as he will not achieve goal without it. Consultation Date/Type/Reason Admit Date/Time Apr 04, 2017 at 19:04 Initial Consult Date 04/05/17 Type of Consultation: Endocrinology Reason for Consultation Type 2 diabetes out of control Referring Provider: DARIEN FERNANDEZ 24 HR Interval Summary Constitutional: improved, no complaints Detailed Summary Respiratory: no complaints Cardiovascular: no complaints Gastrointestinal: no complaints Genitourinary: no complaints Musculoskeletal: no complaints Neurologic: no complaints Exam/Review of Systems Vital Signs Vitals VS - Last 72 Hours, by Label Date Time Temp Pulse Resp B/P Pulse Ox O2 Delivery O2 Flow Rate FiO2 04/07/17 07:45 97.7 100 20 147/76 98 04/07/17 02:00 98.6 88 20 148/75 98 04/06/17 19:15 98.2 97 19 147/74 98 04/06/17 14:55 97.9 76 18 115/64 100 04/06/17 07:42 98.0 79 18 146/69 100 04/06/17 02:10 98.4 85 20 108/53 97 Room Air 04/05/17 20:00 Simple Mask 10.0 04/05/17 19:25 98.1 101 20 134/68 97 04/05/17 08:00 Simple Mask 10.0 04/05/17 07:45 98.0 86 19 127/76 98 04/05/17 02:48 98.0 78 19 124/68 100 04/04/17 20:24 98.7 84 19 128/70 100 04/04/17 20:10 Simple Mask 10.0 Vital Signs Date Time Temp Pulse Resp B/P Pulse Ox O2 Delivery O2 Flow Rate FiO2 04/07/17 07:45 97.7 100 20 147/76 98 04/06/17 02:10 Room Air 04/05/17 20:00 10.0 Intake and Output 04/06/17 04/06/17 04/07/17 15:00 23:00 07:00 Intake Total 1000 ml 500 ml Output Total 1100 ml Balance -100 ml 500 ml Exam Constitutional: alert, obese, oriented Psych: nl mood/affect, no complaints Respiratory: clear to auscultation, normal air movement Cardiovascular: nl pulses, regular rate and rhythm, No edema, No murmurs/extra sounds, No rub Gastrointestinal: bowel sounds, nl liver, spleen, non-tender, soft, No mass, No rebound or guarding Musculoskeletal: nl extremities to inspection Extremities: normal pulses, No clubbing, No cyanosis, No edema 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, nl mental status, nl speech, nl strength Additional Comments Bedside Glucose - 72 Hours Test 04/04/17 20:49 04/05/17 01:49 04/05/17 08:29 04/05/17 12:12 Bedside Glucose 259mg/dL (70-220) H 257mg/dL (70-220) H 268mg/dL (70-220) H 307mg/dL (70-220) H Test 04/05/17 18:01 04/05/17 20:36 04/06/17 01:41 04/06/17 08:42 Bedside Glucose 237mg/dL (70-220) H 295mg/dL (70-220) H 254mg/dL (70-220) H 317mg/dL (70-220) H Test 04/06/17 12:17 04/06/17 17:51 04/06/17 21:20 04/07/17 01:56 Bedside Glucose 231mg/dL (70-220) H 305mg/dL (70-220) H 216mg/dL (70-220) 251mg/dL (70-220) H Test 04/07/17 08:36 04/07/17 12:17 04/07/17 18:12 Bedside Glucose 264mg/dL (70-220) H 272mg/dL (70-220) H 184mg/dL (70-220) Results Result Diagram: 04/07/17 0451 04/07/17 0451 Results 24 hrs Laboratory Tests Test 04/06/17 21:20 04/07/17 01:56 04/07/17 04:51 04/07/17 08:36 Bedside Glucose 216 251 H 264 H White Blood Count 11.9 #H Red Blood Count 5.21 Hemoglobin 13.4 L Hematocrit 41.6 L Mean Corpuscular Volume 79.8 L Mean Corpuscular Hemoglobin 25.7 L Mean Corpuscular Hemoglobin Concent 32.2 Red Cell Distribution Width 13.2 Platelet Count 241 Mean Platelet Volume 11.1 H Neutrophils % 74.8 Lymphocytes % 16.2 Monocytes % 6.0 Eosinophils % 2.0 Basophils % 0.4 Nucleated Red Blood Cells % 0.0 Neutrophils # 8.9 H Lymphocytes # 1.9 Monocytes # 0.7 Eosinophils # 0.2 Basophils # 0.1 Nucleated Red Blood Cells # 0.0 Sodium Level 135 Potassium Level 5.0 Chloride Level 101 Carbon Dioxide Level 25 Anion Gap 14 Blood Urea Nitrogen 21 H Creatinine 0.97 Glucose Level 249 H Calcium Level 9.4 Test 04/07/17 12:17 04/07/17 18:12 Bedside Glucose 272 H 184 Medications Medications Current Medications Aspirin (Ecotrin) 325 mg DAILY PO Last administered on 04/07/17 08:37; Admin Dose 325 MG; Start 04/04/17 at 09:00 Clonazepam (Klonopin) 0.5 mg QHS PRN PO ANXIETY; Start 04/04/17 at 01:00 Metoprolol Succinate (Toprol Xl) 100 mg DAILY PO Last administered on 08:41; Admin Dose 100 MG; Start 04/04/17 at 09:00 Pantoprazole (Protonix Tab) 40 mg DAILY PO Last administered on 04/07/17 08: 41; Admin Dose 40 MG; Start 04/04/17 at 09:00 Atorvastatin Calcium (Lipitor) 20 mg HS PO Last administered on 04/06/17 21: 21; Admin Dose 20 MG; Start 04/04/17 at 21:00 Miscellaneous Information 1 ea NOTE XX ; Start 04/04/17 at 01:00 Glucose (Glutose) 15 gm Q15M PRN PO DECREASED GLUCOSE; Start 04/04/17 at 01:00 Glucose (Glutose) 22.5 gm Q15M PRN PO DECREASED GLUCOSE; Start 04/04/17 at 01: 00 Dextrose (D50w Syringe) 25 ml Q15M PRN IV DECREASED GLUCOSE; Start 04/04/17 at 01:00 Dextrose (D50w Syringe) 50 ml Q15M PRN IV DECREASED GLUCOSE; Start 04/04/17 at 01:00 Glucagon (Glucagen) 1 mg Q15M PRN IM DECREASED GLUCOSE; Start 04/04/17 at 01:00 Glucose (Glutose) 15 gm Q15M PRN BUCCAL DECREASED GLUCOSE; Start 04/04/17 at 01 :00 Acetaminophen (Tylenol Tab) 650 mg Q6H PRN PO PAIN AND OR ELEVATED TEMP; Start 04/04/17 at 01:00 Acetaminophen/ Hydrocodone Bitart ([place] (10)) 1 tab Q4H PRN PO PAIN Last administered on 04/07/17 16:13; Admin Dose 1 TAB; Start 04/04/17 at 01:00 Morphine Sulfate (morphine) 2 mg Q4H PRN IV pain Last administered on 03:25; Admin Dose 2 MG; Start 04/04/17 at 01:00 Ondansetron HCl (Zofran Inj) 4 mg Q6H PRN IV NAUSEA AND/OR VOMITING; Start 04/04/17 at 01:00 Diagnostic Test (Pha) (Accu-Chek) 1 ea 02 XX Last administered on 04/07/17 02 :47; Admin Dose 1 EA; Start 04/04/17 at 02:00 Docusate Sodium (Colace) 100 mg BID PO Last administered on 04/07/17 08:41; Admin Dose 100 MG; Start 04/04/17 at 14:00 Pioglitazone HCl (Actos) 15 mg DAILY PO Last administered on 04/07/17 08:37; Admin Dose 15 MG; Start 04/06/17 at 09:00 Linagliptin (Tradjenta) 5 mg DAILY PO Last administered on 04/07/17 08:41; Admin Dose 5 MG; Start 04/06/17 at 09:00 Guaifenesin/ Dextromethorphan (Robitussin Dm Liquid Cup) 5 ml Q4H PRN PO COUGH Last administered on 04/07/17 01:01; Admin Dose 5 ML; Start 04/06/17 at 14:00 Polyethylene Glycol (Miralax) 17 gm BID PRN PO CONSTIPATION Last administered on 04/07/17 11:28; Admin Dose 17 GM; Start 04/06/17 at 17:00 Lisinopril (Zestril) 20 mg QAM PO ; Start 04/08/17 at 09:00 Lisinopril (Zestril) 10 mg QPM PO ; Start 04/07/17 at 21:00 Insulin Detemir (Levemir) 45 unit DAILY@08 SC ; Start 04/08/17 at 08:00 JOSE G OLMOS MD Apr 07, 2017 18:42
[2017-04-07 20:40] VITALS: BP 141/67; RESP 20
[2017-04-07] MEDS: ATORVASTATIN 20 MG TAB PO SCH (20:49)
[2017-04-07] MEDS ORDERED: LISINOPRIL 10 MG TAB PO SCH (21:00)
[2017-04-08] MEDS ORDERED: CALCIUM CARBONATE 500 MG CHEW TAB PO ONE (01:00)
[2017-04-08] MEDS: HYDROCODONE/APAP (10/325) TAB PO PRN ×2 (01:56→11:45)
[2017-04-08] MEDS: ACCU-CHEK XX SCH (02:00)
[2017-04-08] MEDS ORDERED: ACCU-CHEK XX SCH (02:00)
[2017-04-08] MEDS ORDERED: INSULIN ASPART [NOVOLOG] 3 ML PEN SC ONE (03:30)
[2017-04-08 07:47] VITALS: BP 137/73; RESP 19
[2017-04-08] MEDS ORDERED: INSULIN DETEMIR [LEVEMIR] 3ML CART SC SCH (08:00)
[2017-04-08] MEDS: metFORMIN 500 MG TAB PO SCH (08:18)
[2017-04-08] MEDS: DOCUSATE SODIUM 100 MG CAP PO SCH (08:18)
[2017-04-08] MEDS: PANTOPRAZOLE (EC) 40 MG TAB PO SCH (08:18)
[2017-04-08] MEDS: LINAGLIPTIN 5 MG TABLET PO SCH (08:19)
[2017-04-08] MEDS: PIOGLITAZONE 15 MG TAB PO SCH (08:20)
[2017-04-08] MEDS: ASPIRIN (EC) 325 MG TAB PO SCH (08:24)
[2017-04-08] MEDS: METOPROLOL (XL) 100 MG TAB PO SCH (08:31)
[2017-04-08] MEDS ORDERED: LISINOPRIL 20 MG TAB PO SCH (09:00)
[2017-04-08] MEDS: INSULIN ASPART [NOVOLOG] 3 ML PEN SC SCH ×4 (09:03→12:52)
--- NOTE | 2017-04-08 10:21 | CONS ---
Date/Time of Note Date/Time of Note DATE: 04/08/17 TIME: 10:20 Consultation Date/Type/Reason Admit Date/Time Apr 04, 2017 at 19:04 Type of Consultation: pulmonary Referring Provider: DARIEN FERNANDEZ 24 HR Interval Summary Free Text/Dictation dictated [id number] Exam/Review of Systems Vital Signs Vitals Vital Signs Date Time Temp Pulse Resp B/P Pulse Ox O2 Delivery O2 Flow Rate FiO2 04/08/17 07:47 98.2 61 19 137/73 98 04/06/17 02:10 Room Air 04/05/17 20:00 10.0 Intake and Output 04/07/17 04/07/17 04/08/17 15:00 23:00 07:00 Intake Total 800 ml 950 ml Output Total 1200 ml 900 ml Balance -400 ml 50 ml Results Result Diagram: 04/07/17 0451 04/07/17 0451 Results 24 hrs Laboratory Tests Test 04/07/17 12:04/07/17 18:12 04/07/17 20:42 04/08/17 01:53 Bedside Glucose 272 H 184 224 H 301 H Test 04/08/17 08:33 Bedside Glucose 239 H Medications Medications Current Medications Aspirin (Ecotrin) 325 mg DAILY PO Last administered on 04/08/17 08:24; Admin Dose 325 MG; Start 04/04/17 at 09:00 Clonazepam (Klonopin) 0.5 mg QHS PRN PO ANXIETY; Start 04/04/17 at 01:00 Metoprolol Succinate (Toprol Xl) 100 mg DAILY PO Last administered on 08:31; Admin Dose 100 MG; Start 04/04/17 at 09:00 Pantoprazole (Protonix Tab) 40 mg DAILY PO Last administered on 04/08/17 08: 18; Admin Dose 40 MG; Start 04/04/17 at 09:00 Atorvastatin Calcium (Lipitor) 20 mg HS PO Last administered on 04/07/17 20: 49; Admin Dose 20 MG; Start 04/04/17 at 21:00 Miscellaneous Information 1 ea NOTE XX ; Start 04/04/17 at 01:00 Glucose (Glutose) 15 gm Q15M PRN PO DECREASED GLUCOSE; Start 04/04/17 at 01:00 Glucose (Glutose) 22.5 gm Q15M PRN PO DECREASED GLUCOSE; Start 04/04/17 at 01: 00 Dextrose (D50w Syringe) 25 ml Q15M PRN IV DECREASED GLUCOSE; Start 04/04/17 at 01:00 Dextrose (D50w Syringe) 50 ml Q15M PRN IV DECREASED GLUCOSE; Start 04/04/17 at 01:00 Glucagon (Glucagen) 1 mg Q15M PRN IM DECREASED GLUCOSE; Start 04/04/17 at 01:00 Glucose (Glutose) 15 gm Q15M PRN BUCCAL DECREASED GLUCOSE; Start 04/04/17 at 01 :00 Acetaminophen (Tylenol Tab) 650 mg Q6H PRN PO PAIN AND OR ELEVATED TEMP; Start 04/04/17 at 01:00 Acetaminophen/ Hydrocodone Bitart ([place] ()) 1 tab Q4H PRN PO PAIN Last administered on 04/08/17 01:56; Admin Dose 1 TAB; Start 04/04/17 at 01:00 Morphine Sulfate (morphine) 2 mg Q4H PRN IV pain Last administered on 03:25; Admin Dose 2 MG; Start 04/04/17 at 01:00 Ondansetron HCl (Zofran Inj) 4 mg Q6H PRN IV NAUSEA AND/OR VOMITING; Start 04/04/17 at 01:00 Diagnostic Test (Pha) (Accu-Chek) 1 ea 02 XX Last administered on 04/07/17 02 :47; Admin Dose 1 EA; Start 04/04/17 at 02:00 Docusate Sodium (Colace) 100 mg BID PO Last administered on 04/07/17 08:41; Admin Dose 100 MG; Start 04/04/17 at 14:00 Pioglitazone HCl (Actos) 15 mg DAILY PO Last administered on 04/08/17 08:20; Admin Dose 15 MG; Start 04/06/17 at 09:00 Linagliptin (Tradjenta) 5 mg DAILY PO Last administered on 04/08/17 08:19; Admin Dose 5 MG; Start 04/06/17 at 09:00 Guaifenesin/ Dextromethorphan (Robitussin Dm Liquid Cup) 5 ml Q4H PRN PO COUGH Last administered on 04/07/17 01:01; Admin Dose 5 ML; Start 10/10/17 at 14:00 Polyethylene Glycol (Miralax) 17 gm BID PRN PO CONSTIPATION Last administered on 04/07/17 11:28; Admin Dose 17 GM; Start 04/06/17 at 17:00 Lisinopril (Zestril) 20 mg QAM PO Last administered on 04/08/17 08:20; Admin Dose 20 MG; Start 04/08/17 at 09:00 Lisinopril (Zestril) 10 mg QPM PO Last administered on 04/07/17 20:49; Admin Dose 10 MG; Start 04/07/17 at 21:00 Insulin Detemir (Levemir) 45 unit DAILY@08 SC Last administered on 04/08/17 09:03; Admin Dose 45 UNIT; Start 04/08/17 at 08:00 JASIEL LAMBERT Apr 08, 2017 10:21
[2017-04-08] MEDS ORDERED: INSULIN ASPART [NOVOLOG] 3 ML PEN SC SCH ×2 (11:40→17:55)
--- NOTE | 2017-04-08 11:51 | PN ---
DATE: 04/08/2017 PULMONARY PROGRESS NOTE The patient's condition is stable and remains awake, alert, denies any shortness of breath, chest pa in. PHYSICAL EXAMINATION: GENERAL: Elderly male, morbidly obese, currently in no distress. VITAL SIGNS: Temperature 98 degrees Fahrenheit, respiratory rate is 18 per minute, heart rate 62 pe r minute, blood pressure 138/72, O2 sats 98%. HEENT: Supple neck, no JVD, no lymphadenopathy, midline trachea, no thyromegaly. Pharynx clear, no neck bruits. CHEST: Clear to auscultation. HEART: S1, S2 audible. No murmurs, regular rhythm. ABDOMEN: Soft, protuberant, nontender, bowel sounds audible, no organomegaly. EXTREMITIES: No edema. CENTRAL NERVOUS SYSTEM: No focal deficit. MEDICATIONS: Reviewed. The patient is currently on: 1. Aspirin. 2. Lipitor. 3. Klonopin. 4. Colace. 5. Insulin. 6. Tradjenta. 7. Lisinopril. 8. Metformin. 9. Metoprolol. 10. Protonix. 11. Actos. All doses were reviewed. ASSESSMENT: 1. Patient admitted for fall resulting in small left apical pneumothorax with complete radiological resolution. 2. Underlying history of hypertension, diabetes. 3. Constipation with interval improvement. RECOMMENDATIONS: The patient can be discharged home with continuation of current treatment. Dictated By: JASIEL FORD/YULI Conf#: [id number] DID#: [id number]
--- NOTE | 2017-04-08 12:59 | PDOCDIS ---
Discharge Instructions CONDITION Patient Condition: Stable HOME CARE INSTRUCTIONS: Diet Instructions: Carb controlled diet.Special Diet: 1800CAL ADA ACTIVITY: Activity Restrictions: Slowly Increase Activity Rest between Activity Avoid heavy lifting Avoid Heavy Housework FOLLOW UP/APPOINTMENTS Follow-up Plan FU with primary MD X 1 WEEK FU with pulmonary/cardiology as recommended. Call 911 or got to the nearest hospital if symptoms get worse- patient verbalized understanding dc instructions. Buddy Villalpando/family/staff REFERRALS Agency Name and LEONARDO DAVEY Apr 08, 2017 12:59
--- NOTE | 2017-04-08 13:09 | CONS ---
Date/Time of Note Date/Time of Note DATE: 04/08/17 TIME: 13:06 Assessment/Plan Assessment/Plan Problems: (1) Diabetes mellitus type 2 in obese Status: Chronic Comment: Patient remains hyperglycemic although improving. Greater than 300 overnight and greater than 200 this morning. Patient admits that he had a sandwich from the nursing staff last night at bedtime. This likely accounts for overnight hyperglycemia. New insulin doses started today with some improvement. Prognosis for patient to get good glycemic control as an outpatient remains poor. However patient seems to have somewhat of a better understanding of glucose control at this time. Hyperglycemia is not a reason to remain in the inpatient service. Patient may be discharged at any time from endocrinology standpoint. Consultation Date/Type/Reason Admit Date/Time Apr 04, 2017 at 19:04 Initial Consult Date 04/05/17 Type of Consultation: Endocrinology Reason for Consultation Type 2 diabetes mellitus out of control Referring Provider: DARIEN FERNANDEZ 24 HR Interval Summary Constitutional: improved, no complaints Detailed Summary Respiratory: no complaints Cardiovascular: no complaints Gastrointestinal: no complaints Genitourinary: no complaints Musculoskeletal: no complaints Neurologic: no complaints Exam/Review of Systems Vital Signs Vitals VS - Last 72 Hours, by Label Date Time Temp Pulse Resp B/P Pulse Ox O2 Delivery O2 Flow Rate FiO2 04/08/17 07:47 98.2 61 19 137/73 98 04/07/17 20:40 98.5 94 20 141/67 97 04/07/17 07:45 97.7 100 20 147/76 98 04/07/17 02:00 98.6 88 20 148/75 98 04/06/17 19:15 98.2 97 19 147/74 98 04/06/17 14:55 97.9 76 18 115/64 100 04/06/17 07:42 98.0 79 18 146/69 100 04/06/17 02:10 98.4 85 20 108/53 97 Room Air 04/05/17 20:00 Simple Mask 10.0 04/05/17 19:25 98.1 101 20 134/68 97 Vital Signs Date Time Temp Pulse Resp B/P Pulse Ox O2 Delivery O2 Flow Rate FiO2 04/08/17 07:47 98.2 61 19 137/73 98 04/06/17 02:10 Room Air 04/05/17 20:00 10.0 Intake and Output 04/07/17 04/07/17 04/08/17 15:00 23:00 07:00 Intake Total 800 ml 950 ml Output Total 1200 ml 900 ml Balance -400 ml 50 ml Exam Constitutional: alert, obese, oriented Respiratory: clear to auscultation, normal air movement Cardiovascular: nl pulses, regular rate and rhythm, No edema, No murmurs/extra sounds, No rub Gastrointestinal: bowel sounds, nl liver, spleen, non-tender, soft, No mass, No rebound or guarding Musculoskeletal: nl extremities to inspection Extremities: normal pulses, No clubbing, No cyanosis, No edema 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, nl mental status, nl speech, nl strength Additional Comments Bedside Glucose - 72 Hours Test 04/05/17 18:01 04/05/17 20:36 04/06/17 01:41 04/06/17 08:42 Bedside Glucose 237mg/dL (70-220) H 295mg/dL (70-220) H 254mg/dL (70-220) H 317mg/dL (70-220) H Test 04/06/17 12:17 04/06/17 17:51 04/06/17 21:20 04/07/17 01:56 Bedside Glucose 231mg/dL (70-220) H 305mg/dL (70-220) H 216mg/dL (70-220) 251mg/dL (70-220) H Test 04/07/17 08:36 04/07/17 12:17 04/07/17 18:12 04/07/17 20:42 Bedside Glucose 264mg/dL (70-220) H 272mg/dL (70-220) H 184mg/dL (70-220) 224mg/dL (70-220) H Test 04/08/17 01:53 04/08/17 08:33 04/08/17 12:47 Bedside Glucose 301mg/dL (70-220) H 239mg/dL (70-220) H 178mg/dL (70-220) Results Result Diagram: 04/07/17 0451 04/07/17 0451 Results 24 hrs Laboratory Tests Test 04/07/17 18:12 04/07/17 20:42 04/08/17 01:53 04/08/17 08:33 Bedside Glucose 184 224 H 301 H 239 H Test 04/08/17 12:47 Bedside Glucose 178 Medications Medications Current Medications Aspirin (Ecotrin) 325 mg DAILY PO Last administered on 04/08/17 08:24; Admin Dose 325 MG; Start 04/04/17 at 09:00 Clonazepam (Klonopin) 0.5 mg QHS PRN PO ANXIETY; Start 04/04/17 at 01:00 Metoprolol Succinate (Toprol Xl) 100 mg DAILY PO Last administered on 08:31; Admin Dose 100 MG; Start 04/04/17 at 09:00 Pantoprazole (Protonix Tab) 40 mg DAILY PO Last administered on 04/08/17 08: 18; Admin Dose 40 MG; Start 04/04/17 at 09:00 Atorvastatin Calcium (Lipitor) 20 mg HS PO Last administered on 04/07/17 20: 49; Admin Dose 20 MG; Start 04/04/17 at 21:00 Miscellaneous Information 1 ea NOTE XX ; Start 04/04/17 at 01:00 Glucose (Glutose) 15 gm Q15M PRN PO DECREASED GLUCOSE; Start 04/04/17 at 01:00 Glucose (Glutose) 22.5 gm Q15M PRN PO DECREASED GLUCOSE; Start 04/04/17 at 01: 00 Dextrose (D50w Syringe) 25 ml Q15M PRN IV DECREASED GLUCOSE; Start 04/04/17 at 01:00 Dextrose (D50w Syringe) 50 ml Q15M PRN IV DECREASED GLUCOSE; Start 04/04/17 at 01:00 Glucagon (Glucagen) 1 mg Q15M PRN IM DECREASED GLUCOSE; Start 04/04/17 at 01:00 Glucose (Glutose) 15 gm Q15M PRN BUCCAL DECREASED GLUCOSE; Start 04/04/17 at 01 :00 Acetaminophen (Tylenol Tab) 650 mg Q6H PRN PO PAIN AND OR ELEVATED TEMP; Start 04/04/17 at 01:00 Acetaminophen/ Hydrocodone Bitart ([place] (10325)) 1 tab Q4H PRN PO PAIN Last administered on 04/08/17 11:45; Admin Dose 1 TAB; Start 04/04/17 at 01:00 Morphine Sulfate (morphine) 2 mg Q4H PRN IV pain Last administered on 03:25; Admin Dose 2 MG; Start 04/04/17 at 01:00 Ondansetron HCl (Zofran Inj) 4 mg Q6H PRN IV NAUSEA AND/OR VOMITING; Start 04/04/17 at 01:00 Diagnostic Test (Pha) (Accu-Chek) 1 ea 02 XX Last administered on 04/07/17 02 :47; Admin Dose 1 EA; Start 04/04/17 at 02:00 Docusate Sodium (Colace) 100 mg BID PO Last administered on 04/07/17 08:41; Admin Dose 100 MG; Start 04/04/17 at 14:00 Pioglitazone HCl (Actos) 15 mg DAILY PO Last administered on 04/08/17 08:20; Admin Dose 15 MG; Start 04/06/17 at 09:00 Linagliptin (Tradjenta) 5 mg DAILY PO Last administered on 04/08/17 08:19; Admin Dose 5 MG; Start 04/06/17 at 09:00 Guaifenesin/ Dextromethorphan (Robitussin Dm Liquid Cup) 5 ml Q4H PRN PO COUGH Last administered on 04/07/17 01:01; Admin Dose 5 ML; Start 04/06/17 at 14:00 Polyethylene Glycol (Miralax) 17 gm BID PRN PO CONSTIPATION Last administered on 04/07/17 11:28; Admin Dose 17 GM; Start 04/06/17 at 17:00 Lisinopril (Zestril) 20 mg QAM PO Last administered on 04/08/17 08:20; Admin Dose 20 MG; Start 04/08/17 at 09:00 Lisinopril (Zestril) 10 mg QPM PO Last administered on 04/07/17 20:49; Admin Dose 10 MG; Start 04/07/17 at 21:00 Insulin Detemir (Levemir) 45 unit DAILY@08 SC Last administered on 04/08/17 09:03; Admin Dose 45 UNIT; Start 04/08/17 at 08:00 JOSE G OLMOS MD Apr 08, 2017 13:09
[2017-04-08] MEDS ORDERED: PIOG15TA4 PO (13:11)
[2017-04-08] MEDS ORDERED: DOCU-216 PO (13:11)
[2017-04-08] MEDS ORDERED: NOVO3I SC (13:11)
[2017-04-08] MEDS ORDERED: INSU100I27 SC (13:11)
[2017-04-08] MEDS ORDERED: UDROBDM PO (13:11)
[2017-04-08] MEDS ORDERED: POLY17PO6 PO (13:11)
[2017-04-08] MEDS ORDERED: Hydrocodone/Apap (10/325) PO (13:11)
[2017-04-08] MEDS ORDERED: LISI20TA11 PO (13:11)
[2017-04-08] MEDS ORDERED: LISI10TA2 PO (13:11)
--- NOTE | 2017-04-08 14:01 | CONS ---
Date/Time of Note Date/Time of Note DATE: 04/08/17 TIME: 13:58 Assessment/Plan Assessment/Plan Chief Complaint/Hosp Course IMP: 1. Status post fall, mechanical by description-NL EF by echo/negative trop 2. Left pneumothorax-secondary to rib fx. improved 3. Pneumomediastinum. Left lower neck and left posterolateral chest wall subcutaneous emphysema. 4. Abnormal electrocardiogram. 5. Dyspnea. 6. DM with elevated BS 7. H/O PTCA/stent-most recent 1 year prior Recc: -Continue asa/? need for plavix depending upon when last stent really placed -Continue BB/ACEI -Continue statin -Follow resp status and serial cxr's with ongoing pulm f/u -Ongoing adjustment of insulin/oral hypoglycemics for uncontrolled BS with endocrine following -D/C planning if BP/BS remains stable Problems: Consultation Date/Type/Reason Admit Date/Time Apr 04, 2017 at 19:04 Initial Consult Date 04/05/17 Type of Consultation: cardiology Reason for Consultation sob Referring Provider: DARIEN FERNANDEZ Exam/Review of Systems Vital Signs Vitals Vital Signs Date Time Temp Pulse Resp B/P Pulse Ox O2 Delivery O2 Flow Rate FiO2 04/08/17 07:47 98.2 61 19 137/73 98 04/06/17 02:10 Room Air 04/05/17 20:00 10.0 Intake and Output 04/07/17 04/07/17 04/08/17 15:00 23:00 07:00 Intake Total 800 ml 950 ml Output Total 1200 ml 900 ml Balance -400 ml 50 ml Exam Review of Systems: CONSTITUTIONAL: No fevers, chills. PULMONARY: No sob CARDIOVASCULAR: No chest pain/palpitations GASTROINTESTINAL: No nausea/vomiting. GENITOURINARY: No hematuria/dysuria. MUSCULOSKELETAL: No myagias/arthalgias. PSYCHIATRIC: The patient denies depression. NEUROLOGIC: No weakness Constitutional: alert Psych: no complaints Head: normocephalic ENMT: mucosa pink and moist Neck: jvd (9 cm water), supple Respiratory: diminished breath sounds Cardiovascular: regular rate and rhythm Gastrointestinal: soft Musculoskeletal: muscle tone Extremities: edema (none) Neurological: other (No focal deficits) Results Result Diagram: 04/07/17 0451 04/07/17 045 Results 24 hrs Laboratory Tests Test 04/07/17 18:12 04/07/17 20:42 04/08/17 01:53 04/08/17 08:33 Bedside Glucose 184 224 H 301 H 239 H Test 04/08/17 12:47 Bedside Glucose 178 Medications Medications Current Medications Aspirin (Ecotrin) 325 mg DAILY PO Last administered on 04/08/17 08:24; Admin Dose 325 MG; Start 04/04/17 at 09:00 Clonazepam (Klonopin) 0.5 mg QHS PRN PO ANXIETY; Start 04/04/17 at 01:00 Metoprolol Succinate (Toprol Xl) 100 mg DAILY PO Last administered on 08:31; Admin Dose 100 MG; Start 04/04/17 at 09:00 Pantoprazole (Protonix Tab) 40 mg DAILY PO Last administered on 04/08/17 08: 18; Admin Dose 40 MG; Start 04/04/17 at 09:00 Atorvastatin Calcium (Lipitor) 20 mg HS PO Last administered on 04/07/17 20: 49; Admin Dose 20 MG; Start 04/04/17 at 21:00 Miscellaneous Information 1 ea NOTE XX ; Start 04/04/17 at 01:00 Glucose (Glutose) 15 gm Q15M PRN PO DECREASED GLUCOSE; Start 04/04/17 at 01:00 Glucose (Glutose) 22.5 gm Q15M PRN PO DECREASED GLUCOSE; Start 04/04/17 at 01: 00 Dextrose (D50w Syringe) 25 ml Q15M PRN IV DECREASED GLUCOSE; Start 04/04/17 at 01:00 Dextrose (D50w Syringe) 50 ml Q15M PRN IV DECREASED GLUCOSE; Start 04/04/17 at 01:00 Glucagon (Glucagen) 1 mg Q15M PRN IM DECREASED GLUCOSE; Start 04/04/17 at 01:00 Glucose (Glutose) 15 gm Q15M PRN BUCCAL DECREASED GLUCOSE; Start 04/04/17 at 01 :00 Acetaminophen (Tylenol Tab) 650 mg Q6H PRN PO PAIN AND OR ELEVATED TEMP; Start 04/04/17 at 01:00 Acetaminophen/ Hydrocodone Bitart ([place] (10/325)) 1 tab Q4H PRN PO PAIN Last administered on 04/08/17 11:45; Admin Dose 1 TAB; Start 04/04/17 at 01:00 Morphine Sulfate (morphine) 2 mg Q4H PRN IV pain Last administered on 03:25; Admin Dose 2 MG; Start 04/04/17 at 01:00 Ondansetron HCl (Zofran Inj) 4 mg Q6H PRN IV NAUSEA AND/OR VOMITING; Start 04/04/17 at 01:00 Diagnostic Test (Pha) (Accu-Chek) 1 ea 02 XX Last administered on 04/07/17 02 :47; Admin Dose 1 EA; Start 04/04/17 at 02:00 Docusate Sodium (Colace) 100 mg BID PO Last administered on 04/07/17 08:41; Admin Dose 100 MG; Start 04/04/17 at 14:00 Pioglitazone HCl (Actos) 15 mg DAILY PO Last administered on 04/08/17 08:20; Admin Dose 15 MG; Start 04/06/17 at 09:00 Linagliptin (Tradjenta) 5 mg DAILY PO Last administered on 04/08/17 08:19; Admin Dose 5 MG; Start 04/06/17 at 09:00 Guaifenesin/ Dextromethorphan (Robitussin Dm Liquid Cup) 5 ml Q4H PRN PO COUGH Last administered on 04/07/17 01:01; Admin Dose 5 ML; Start 04/06/17 at 14:00 Polyethylene Glycol (Miralax) 17 gm BID PRN PO CONSTIPATION Last administered on 04/07/17 11:28; Admin Dose 17 GM; Start 04/06/17 at 17:00 Lisinopril (Zestril) 20 mg QAM PO Last administered on 04/08/17 08:20; Admin Dose 20 MG; Start 04/08/17 at 09:00 Lisinopril (Zestril) 10 mg QPM PO Last administered on 04/07/17 20:49; Admin Dose 10 MG; Start 04/07/17 at 21:00 Insulin Detemir (Levemir) 45 unit DAILY@08 SC Last administered on 04/08/17 09:03; Admin Dose 45 UNIT; Start 04/08/17 at 08:00 MADALYN GARCIA Apr 08, 2017 14:01
[2017-04-08] MEDS ORDERED: METF500T PO (14:48)
--- NOTE | 2017-04-08 14:49 | DS ---
Date/Time of Note Date/Time of Note DATE: 04/08/17 TIME: 14:49 Discharge Summary Admission/Discharge Info Admit Date/Time Apr 04, 2017 at 19:04 Discharge Date/Time Hospital Course IMP: 1. Status post fall, mechanical by description-NL EF by echo/negative trop 2. Left pneumothorax-secondary to rib fx. improved 3. Pneumomediastinum. Left lower neck and left posterolateral chest wall subcutaneous emphysema. 4. Abnormal electrocardiogram. 5. Dyspnea. 6. DM with elevated BS 7. H/O PTCA/stent-most recent 1 year prior Recc: -Continue asa/? need for plavix depending upon when last stent really placed -Continue BB/ACEI -Continue statin -Follow resp status and serial cxr's with ongoing pulm f/u -Ongoing adjustment of insulin/oral hypoglycemics for uncontrolled BS with endocrine following -D/C planning if BP/BS remains stable Home Meds Active Scripts Metformin Hcl (Glucophage) 500 Mg Tablet, 1000 MG PO BID WITH MEALS for 30 Days , TAB Prov:LEONARDO DAVEY 04/08/17 [Hydrocodone/Apap (10/325)] 1 TAB TAB No Conflict Check, 1 TAB PO Q6 Y for PAIN , #14 Prov:LEONARDO DAVEY 04/08/17 Polyethylene Glycol* (Miralax*) 17 Gm Powd.pack, 17 GM PO BID Y for CONSTIPATION for 14 Days Prov:LEONARDO DAVEY 04/08/17 Pioglitazone Hcl* (Actos*) 15 Mg Tablet, 15 MG PO DAILY for 30 Days, TAB Prov:LEONARDO DAVEY 04/08/17 Lisinopril* (Lisinopril*) 10 Mg Tablet, 10 MG PO QPM for 30 Days, TAB Prov:LEONARDO DAVEY 04/08/17 Lisinopril* (Lisinopril*) 20 Mg Tablet, 20 MG PO QAM for 30 Days, TAB Prov:LEONARDO DAVEY 04/08/17 Guaifenesin-Dextromethorphan* (Robitussin* DM) 100MG/10MG/5ML Syrup, 5 ML PO Q4H Y for COUGH for 10 Days Prov:LOENARDO DAVEY 04/08/17 Docusate Sodium (Dok) 100 Mg Capsule, 100 MG PO BID for 30 Days, CAP Prov:LEONARDO DAVEY 04/08/17 Insulin Aspart* (Novolog Insulin Pen*) 100 Unit/Ml Soln, 20 UNIT SC WITH MEALS for 30 Days Prov:LEONARDO DAVEY 04/08/17 Insulin Detemir (Levemir Flextouch) 100 Unit/1 Ml Insuln.pen, 45 UNIT SC DAILY@ 08 for 30 Days Prov:LEONARDO DAVEY 04/08/17 Reported Medications Aspirin* (Aspirin* EC) 325 Mg Tab, 325 MG PO DAILY, TAB 07/28/14 Simvastatin* (Zocor*) 40 Mg Tablet, 40 MG PO HS, TAB 07/28/14 Metoprolol Succinate* (Toprol XL*) 100 Mg Tab.sr.24h, 100 MG PO DAILY, TAB 07/28/14 Clonazepam* (Clonazepam*) 0.5 Mg Tablet, 0.5 MG PO QHS Y for ANXIETY, TAB 07/28/14 Pantoprazole* (Protonix*) 40 Mg Tablet. 09/03/09 Discontinued Reported Medications Insulin Detemir* (Levemir*) 100 U/Ml Vial, 40 UNIT SC BID, VIAL 07/28/14 Lisinopril* (Lisinopril*) 20 Mg Tablet, 20 MG PO DAILY, TAB 07/28/14 Pioglitazone Hcl-Metformin Hcl (Actoplus Met) 1 Tab Tablet 09/03/09 Follow-up Plan FU with primary MD X 1 WEEK FU with pulmonary/cardiology as recommended. Call 911 or got to the nearest hospital if symptoms get worse- patient verbalized understanding dc instructions. Buddy Villalpando/family/staff Primary Care Provider Malika Vickers Pending Labs Laboratory Tests Test 04/07/17 18:12 04/07/17 20:42 04/08/17 01:53 04/08/17 08:33 Bedside Glucose 184mg/dL (70-220) 224mg/dL (70-220) 301mg/dL (70-220) 239mg/dL (70-220) Test 04/08/17 12:47 Bedside Glucose 178mg/dL (70-220) LEONARDO DAVEY Apr 08, 2017 14:49
== END 2017-04-08 15:15 | disposition home or self-care (01) ==
LOC: E/R 18:40 → INTOOBSV 23:16 → UNDOADMOB 23:16 → MS1 23:16
PROVIDERS: ADMIT Internal Medicine; ATTEND Internal Medicine
DX: S27.0XXA Traumatic pneumothorax, initial encounter (principal); S22.32XA Fracture of one rib, left side, initial encounter for closed fracture; W18.2XXA Fall in (into) shower or empty bathtub, initial encounter; J98.2 Interstitial emphysema; T79.7XXA Traumatic subcutaneous emphysema, initial encounter; I25.10 Atherosclerotic heart disease of native coronary artery without angina pectoris; I10 Essential (primary) hypertension; E78.5 Hyperlipidemia, unspecified; K21.9 Gastro-esophageal reflux disease without esophagitis; Z79.4 Long term (current) use of insulin; R94.31 Abnormal electrocardiogram [ECG] [EKG]; E66.9 Obesity, unspecified; R06.00 Dyspnea, unspecified; E11.65 Type 2 diabetes mellitus with hyperglycemia
CPT/HCPCS: 36415; 70450; 71010; 71250; 72125; 74176; 80048; 80053; 80061; 82962; 83036; 83690; 84484; 85025; 85610; 85730; 93005; 93306; 96372; 96374; 96375; 96376; 99291; G0378; J1170; J1815; J2270; 99217

== ENCOUNTER 2018-11-03 14:36 | Emergency (ER) | payer MEDICARE, OTHER ==
[~2018-11-03] VITALS: Ht 162.6 cm; Wt 92.4 kg
[~2018-11-03 14:36] MED LIST changes: +CLON0.5T14 PO; -CLON0.5T4 PO; +DOCU-216 PO; +GUAI5SYR2 PO; +Hydrocodone/Apap (10/325) PO; +INSU100I27 SC; -LEVEM SC; +LISI-471 PO; +LISI10TA2 PO; -LISI20TA11 PO; +METF500T PO; +NOVO3I SC; +PIOG15TA12 PO; -PIOG1TAB9; +POLY17PO6 PO
[2018-11-03 14:39] VITALS: Ht 162.6 cm; Wt 92.4 kg
[2018-11-03] MEDS ORDERED: LIDOCAINE 1% (MPF) 5 ML VIAL INFIL ONE (17:00)
[2018-11-03] MEDS ORDERED: CLINDAMYCIN 300 MG INJ IM ONE (17:00)
[2018-11-03] MEDS ORDERED: MUPIROCIN 2% 22 GM OINT TOP ONE (17:30)
[2018-11-03] MEDS ORDERED: SULF1TAB31 PO (17:56)
[2018-11-03] MEDS ORDERED: CEPH-443 PO (17:56)
--- NOTE | 2018-11-03 18:01 | ERD ---
ER Documentation Chief Complaint Chief Complaint Painful swollen abscess L upper back, body aches X 5 days HPI 58-year-old male past medical history of diabetes on insulin, hypertension, [place] PD, heart disease with heart stent history presents for swelling and pain over the right upper back area x5 days. Patient states he was on a cruise and developed the symptoms and to a hospital abroad and was given Zofran and IV fluids and was told to follow-up at the hospital with back to the [place]. He states he has subjective fever that is noted to be mild. Denies any nausea or vo miting. Denies any chest pain or shortness of breath. Denies abdominal pain. No other modifying factors noted, no treatments tried at home. ROS All systems reviewed and are negative except as per history of present illness. Medications Home Meds Active Scripts Cephalexin* (Keflex*) 500 Mg Capsule, 500 MG PO TID for skin infection for 7 Days, #21 CAP Prov:JOSE G PHAM DO 11/03/18 Sulfamethoxazole/Trimethoprim* (Bactrim Ds* Tablet) 1 Each Tablet, 1 TAB PO BID for skin infection for 7 Days, #14 TAB Prov:JOSE G PHAM DO 11/03/18 Metformin Hcl (Glucophage) 500 Mg Tablet, 1000 MG PO BID WITH MEALS for 30 Days, TAB Prov:LEONARDO DAVEY 04/08/17 [Hydrocodone/Apap ()] 1 TAB TAB No Conflict Check, 1 TAB PO Q6 PRN for PAIN, #14 Prov:LEONARDO DAVEY 04/08/17 Polyethylene Glycol* (Miralax*) 17 Gm Powd.pack, 17 GM PO BID PRN for CONSTIPATION for 14 Days Prov:LEONARDO DAVEY 04/08/17 Pioglitazone Hcl* (Actos*) 15 Mg Tablet, 15 MG PO DAILY for 30 Days, TAB Prov:LEONARDO DAVEY 04/08/17 Lisinopril* (Lisinopril*) 10 Mg Tablet, 10 MG PO QPM for 30 Days, TAB Prov:LEONARDO DAVEY 04/08/17 Lisinopril* (Lisinopril*) 20 Mg Tablet, 20 MG PO QAM for 30 Days, TAB Prov:LEONARDO DAVEY 04/08/17 Guaifenesin-Dextromethorphan* (Robitussin* DM) 100MG/10MG/5ML Syrup, 5 ML PO Q4H PRN for COUGH for 10 Days Prov:CORNELIOEMERSONLEONARDO 04/08/17 Docusate Sodium (Dok) 100 Mg Capsule, 100 MG PO BID for 30 Days, CAP Prov:PETARLEONARDO 04/08/17 Insulin Aspart* (Novolog Insulin Pen*) 100 Unit/Ml Soln, 20 UNIT SC WITH MEALS for 30 Days Prov:LINDAMARKLEONARDO 04/08/17 Insulin Detemir (Levemir Flextouch) 100 Unit/1 Ml Insuln.pen, 45 UNIT SC DAILY@08 for 30 Days Prov:CORNELIOEMERSONLEONARDO 04/08/17 Reported Medications Aspirin* (Aspirin* EC) 325 Mg Tab, 325 MG PO DAILY, TAB 07/28/14 Simvastatin* (Zocor*) 40 Mg Tablet, 40 MG PO HS, TAB 07/28/14 Metoprolol Succinate* (Toprol XL*) 100 Mg Tab.sr.24h, 100 MG PO DAILY, TAB 07/28/14 Clonazepam* (Clonazepam*) 0.5 Mg Tablet, 0.5 MG PO QHS PRN for ANXIETY, TAB 07/28/14 Pantoprazole* (Protonix*) 40 Mg Tablet. 09/03/09 Allergies Allergies: Coded Allergies: No Known Allergies (Verified Allergy, Unknown, 07/28/14) PMhx/Soc History of Surgery: Yes (STENT PLACEMENT X2) Anesthesia Reaction: No Hx Neurological Disorder: No Hx Respiratory Disorders: No Hx Cardiac Disorders: Yes (coronary artery disease, HTN, High cholesterol) Hx Psychiatric Problems: Yes (anxiety) Hx Miscellaneous Medical Probl: No Hx Alcohol Use: No Hx Substance Use: No Hx Tobacco Use: No Smoking Status: Never smoker FmHx Family History: No coronary disease Physical Exam Vitals Vital Signs Date Temp Pulse Resp B/P (MAP) Pulse Ox O2 O2 Flow FiO2 Time Delivery Rate 11/03/18 98.1 105 20 144/74 97 Room Air 18:07 (97) 11/03/18 100.3 110 18 136/66 96 14:39 (89) Physical Exam Const: No acute distress Resp: Clear to auscultation bilaterally Cardio: Regular rate and rhythm, no murmurs Abd: Soft, non tender, non distended. Normal bowel sounds Skin: Right upper back area of redness, 2 cm nodule. Back: No midline or flank tenderness Ext: No cyanosis, or edema Neur: Awake and alert Psych: Normal Mood and Affect Results 24 hrs Laboratory Tests Test 11/03/18 14:44 Bedside Glucose 260 mg/dL Current Medications Medications Dose Sig/Ishmael Start Time Status Last (Trade) Ordered Route PRN Stop Time Admin Dose Reason Admin Clindamycin 300 mg ONCE ONCE 11/03/18 DC 11/03/18 Phosphate IM 17:00 11/03/18 17:27 (Cleocin) 17:01 Lidocaine 5 ml ONCE ONCE 11/03/18 DC (Xylocaine INFIL 17:00 11/03/18 1% (Mpf)) 17:01 Mupirocin 1 applic ONCE ONCE 11/03/18 DC 11/03/18 (Bactroban) TOP 17:30 11/03/18 17:27 17:31 Procedures/MDM Abscess Incision and Drainage with irrigation by me: Location: Right upper back Anesthesia: Local 1% Lidocaine Technique: Irrigated. Disrupted loculations w/ instrumentation Packing: None Complications: Neurovascularly intact post procedure 48 hour wound check. Scar minimization instructions given. Medical Decision Making: Differential diagnosis includes but not limited to skin abscess, cellulitis, d ermatitis, allergic reaction Patient appeared well on physical exam. 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 Symptoms improved with treatment. Incision and drainage was done, see procedure note above Prescription(s): Patient given prescription for Bactrim and Keflex. Strict return precautions given to patient. Patient advised to return to the ER in 48 hours for recheck. Patient also advised regarding wound care. Patient advised to follow up with PCP in 1-2 days. Patient advised to return to ED for new or worsening symptoms. Patient stable on discharge from the ED. Disclaimer: Inadvertent spelling and grammatical errors are likely due to EHR/dictation software use and do not reflect on the overall quality of patient care. Also, please note that the electronic time recorded on this note does not necessarily reflect the actual time of the patient encounter. Departure Diagnosis: Primary Impression: Abscess Condition: Fair Patient Instructions: Abscess, Incision And Drainage Referrals: ASHLEY MARTIN (PCP) Additional Instructions: Call your primary care doctor TOMORROW for an appointment during the next 1-2 days.See the doctor sooner or return here if your condition worsens before your appointment time. Warm water bath 5-10 minutes twice daily to keep the incision area open for help the infection drain. Return to ER in 2 days for wound check JOSE G PHAM DO November 03, 2018 18:01
[2018-11-03 18:07] VITALS: BP 144/74; PULSE 105; RESP 20
== END 2018-11-03 18:26 | disposition home or self-care (01) ==
LOC: FTE 14:36
DX: L02.212 Cutaneous abscess of back [any part, except buttock and flank] (principal); I10 Essential (primary) hypertension; I25.10 Atherosclerotic heart disease of native coronary artery without angina pectoris; E11.9 Type 2 diabetes mellitus without complications; J44.9 Chronic obstructive pulmonary disease, unspecified; Z79.4 Long term (current) use of insulin; Z98.61 Coronary angioplasty status; Z79.82 Long term (current) use of aspirin
CPT/HCPCS: 82962; 96372

== ENCOUNTER 2019-01-10 15:24 | Emergency (ER) | payer MEDICARE, OTHER ==
[~2019-01-10] VITALS: Ht 172.7 cm; Wt 91.7 kg
[~2019-01-10 15:24] MED LIST changes: +CEPH-443 PO; +SULF1TAB31 PO
[2019-01-10 15:27] VITALS: Ht 172.7 cm; Wt 91.7 kg
--- NOTE | 2019-01-10 15:30 | EN ---
Date/Time of Note Date/Time of Note DATE: 01/10/19 TIME: 15:29 ER Progress Note AVK-61-moml-old male slipped and fell onto his back yesterday. He has mid to upper back pain. He has a history of previous rib fracture. He has pain despite Tylenol. No history of head injury, dizziness, chest pain, shortness of breath. Patient ambulatory with discomfort. ED 2 appropriate. JOSE MERA MD Jan 10, 2019 15:30
[2019-01-10] MEDS ORDERED: morphine 4 MG/ML VIAL IM STA (16:29)
[2019-01-10] MEDS ORDERED: ONDANSETRON (ODT) 4 MG TAB ODT STA (16:29)
[2019-01-10] MEDS ORDERED: TRAM50TA2 PO (18:52)
[2019-01-10] MEDS ORDERED: IBUP-1542 PO (18:52)
[2019-01-10 19:06] VITALS: BP 150/85; PULSE 83; RESP 16
--- NOTE | 2019-01-10 20:00 | ERD ---
ER Documentation Chief Complaint Chief Complaint back pain s/p slip and fall in park yesterday HPI History of Present Illness: 58-year-old male with history of cardiac disease, insulin-dependent diabetes, COPD, hypertension coming in today with complaint of mechanical fall in the park yesterday. Patient reports tripping and having a fall in which he fell on his back. witnessed fall. Patient is a good historian. Patient with complaint of mid and upper back pain. Patient reports a trauma the previous year in which he had a fall and experienced fractured ribs, and a pneumothorax. No history of head injury, dizziness, chest pain, shortness of breath. Patient ambulatory with discomfort. At home pharmacological/nonpharmacological treatment for symptoms: Index Denies social concerns; Denies recent foreign travel ROS All systems reviewed and are negative except as per history of present illness. Medications Home Meds Active Scripts Ibuprofen* (Motrin*) 600 Mg Tab, 600 MG PO Q6H PRN for PAIN AND OR ELEVATED TEMP, #30 TAB Prov:UMESH ELLINGTON NP 01/10/19 Tramadol HCl (Tramadol HCl) 50 Mg Tablet, 50 MG PO Q6 PRN for PAIN, #12 TAB Prov:UMESH ELLINGTON NP 01/10/19 Cephalexin* (Keflex*) 500 Mg Capsule, 500 MG PO TID for skin infection for 7 Days, #21 CAP Prov:JOSE G PHAM DO 11/03/18 Sulfamethoxazole/Trimethoprim* (Bactrim Ds* Tablet) 1 Each Tablet, 1 TAB PO BID for skin infection for 7 Days, #14 TAB Prov:JOSE G PHAM DO 11/03/18 Metformin Hcl (Glucophage) 500 Mg Tablet, 1000 MG PO BID WITH MEALS for 30 Days, TAB Prov:LEONARDO DAVEY 04/08/17 [Hydrocodone/Apap (10/325)] 1 TAB TAB No Conflict Check, 1 TAB PO Q6 PRN for PAIN, #14 Prov:LEONARDO DAVEY 04/08/17 Polyethylene Glycol* (Miralax*) 17 Gm Powd.pack, 17 GM PO BID PRN for CONSTIPATION for 14 Days Prov:LEONARDO DAVEY 04/08/17 Pioglitazone Hcl* (Actos*) 15 Mg Tablet, 15 MG PO DAILY for 30 Days, TAB Prov:LEONARDO DAVEY 04/08/17 Lisinopril* (Lisinopril*) 10 Mg Tablet, 10 MG PO QPM for 30 Days, TAB Prov:LEONARDO DAVEY 04/08/17 Lisinopril* (Lisinopril*) 20 Mg Tablet, 20 MG PO QAM for 30 Days, TAB Prov:LEONARDO DAVEY 04/08/17 Guaifenesin-Dextromethorphan* (Robitussin* DM) 100MG/10MG/5ML Syrup, 5 ML PO Q4H PRN for COUGH for 10 Days Prov:LEONARDO DAVEY 04/08/17 Docusate Sodium (Dok) 100 Mg Capsule, 100 MG PO BID for 30 Days, CAP Prov:LEONARDO DAVEY 04/08/17 Insulin Aspart* (Novolog Insulin Pen*) 100 Unit/Ml Soln, 20 UNIT SC WITH MEALS for 30 Days Prov:LEONARDO DAVEY 04/08/17 Insulin Detemir (Levemir Flextouch) 100 Unit/1 Ml Insuln.pen, 45 UNIT SC DAILY@08 for 30 Days Prov:LEONARDO DAVEY 04/08/17 Reported Medications Aspirin* (Aspirin* EC) 325 Mg Tab, 325 MG PO DAILY, TAB 07/28/14 Simvastatin* (Zocor*) 40 Mg Tablet, 40 MG PO HS, TAB 07/28/14 Metoprolol Succinate* (Toprol XL*) 100 Mg Tab.sr.24h, 100 MG PO DAILY, TAB 07/28/14 Clonazepam* (Clonazepam*) 0.5 Mg Tablet, 0.5 MG PO QHS PRN for ANXIETY, TAB 07/28/14 Pantoprazole* (Protonix*) 40 Mg Tablet. 09/03/09 Allergies Allergies: Coded Allergies: No Known Allergies (Verified Allergy, Unknown, 07/28/14) PMhx/Soc History of Surgery: Yes (STENT PLACEMENT X2) Anesthesia Reaction: No Hx Neurological Disorder: No Hx Respiratory Disorders: No Hx Cardiac Disorders: Yes (coronary artery disease, HTN, High cholesterol) Hx Psychiatric Problems: Yes (anxiety) Hx Miscellaneous Medical Probl: No Hx Alcohol Use: Yes (occasional) Hx Substance Use: No Hx Tobacco Use: No Smoking Status: Never smoker FmHx Family History: diabetes Physical Exam Vitals Vital Signs Date Temp Pulse Resp B/P (MAP) Pulse Ox O2 O2 Flow FiO2 Time Delivery Rate 01/10/19 83 16 150/85 97 Room Air 19:06 (106) 01/10/19 97.6 90 18 141/67 98 15:27 (91) Physical Exam Const: No acute distress, afebrile Head: Atraumatic Eyes: Normal Conjunctiva ENT: Normal External Ears, Nose and Mouth. Neck: Full range of motion. No meningismus. Resp: Clear to auscultation bilaterally Cardio: Regular rate and rhythm, no murmurs Abd: Soft, non tender, non distended. No guarding, no masses, no rigidity Skin: No petechiae or rashes Back: No midline or flank tenderness; paraspinal tenderness to the thoracic Ext: No cyanosis, or edema Neur: Awake and alert x3, speaking in clear sentences, no focal deficits or facial asymmetry Psych: Normal Mood and Affect Results 24 hrs Current Medications Medications Dose Sig/Ishmael Start Time Status Last (Trade) Ordered Route PRN Stop Time Admin Dose Reason Admin Morphine 4 mg ONCE STAT 01/10/19 DC 01/10/19 Sulfate IM 16:29 16:38 (morphine) 01/10/19 16:31 Ondansetron 4 mg ONCE STAT 01/10/19 DC 01/10/19 HCl (Zofran ODT 16:29 16:38 Odt) 01/10/19 16:31 Procedures/MDM ED COURSE: ED course includes a thorough examination and history. The patient was stable throughout ED course. I kept the patient and/or family informed of laboratory and diagnostic imaging results throughout the ED course. LABS: [] MEDICATIONS GIVEN IN ER: [None.] Patient tolerated medication well with no adverse reactions. Patient reported improvement in pain. DIAGNOSTIC IMAGING: Read by radiologist. []. PROCEDURES: None. MEDICAL DECISION MAKING: Low suspicion for life-threatening medical emergency. Low suspicion for neurological emergency. Low suspicion for orthopedic emergency requires imm ediate hospitalization or surgical intervention. Otherwise healthy patient presenting with constellation of symptoms likely rep resenting fall with no significant injury as characterized by history, physical exam findings, radiology findings. Patient reassessment @ 1752: Results discussed. Patient with decrease in pain after medication ministration. Patient says that he was on the impression that he already had a compression fracture with prior injury. Patient hemodynamically stable. No respiratory distress, otherwise relatively well appearing and nontoxic. Disposition given. Patient educated on diagnoses, prescriptions, follow-up care, return precautions. Strict return precautions given for worsening condition; questions answered discharge. Patient verbalizes understanding of discharge instructions. PRESCRIPTIONS FOR HOME: Tramadol, ibuprofen DISPOSITION: DISCHARGE At this time, patient is stable for discharge and outpatient management. I have instructed the patient to follow-up with his/her primary care physician in 1-2 days. I have discussed with the patient the possibility of needing to see a specialist for further workup and imaging studies if symptoms persist. I have instructed the patient to promptly return to the ER for any new or worsening symptoms including increased pain, fever, nausea, vomiting, weakness or LOC. The patient and/or family expressed understanding of and agreement with this plan. All questions were answered. Home care instructions were provided. DISCLAIMER: Inadvertent spelling and grammatical errors are likely due to EHR/dictation software use and do not reflect on the overall quality of patient care. Also, please note that the electronic time recorded on this note does not necessarily reflect the actual time of the patient encounter. Departure Diagnosis: Primary Impression: Fall with no significant injury Condition: Stable Patient Instructions: Back Pain (Acute Or Chronic), Fall Prevention Referrals: [facility] YOU HAVE RECEIVED A MEDICAL SCREENING EXAM AND THE RESULTS INDICATE THAT YOU DO NOT HAVE A CONDITION THAT REQUIRES URGENT TREATMENT IN THE EMERGENCY DEPARTMENT. FURTHER EVALUATION AND TREATMENT OF YOUR CONDITION CAN WAIT UNTIL YOU ARE SEEN IN YOUR DOCTORS OFFICE WITHIN THE NEXT 1-2 DAYS. IT IS YOUR RESPONSIBILITY TO MAKE AN APPOINTMENT FOR FOLOW-UP CARE. IF YOU HAVE A PRIMARY DOCTOR --you should call your primary doctor and schedule an appointment IF YOU DO NOT HAVE A PRIMARY DOCTOR YOU CAN CALL OUR PHYSICIAN REFERRAL HOTLINE AT IF YOU CAN NOT AFFORD TO SEE A PHYSICIAN YOU CAN CHOSE FROM THE FOLLOWING [facility] [address] [facility] [address] [facility]. [facility] [address] [facility] [address] [facility] [address] [facility]. [facility] [address] [facility]. [facility] YOU HAVE RECEIVED A MEDICAL SCREENING EXAM AND THE RESULTS INDICATE THAT YOU DO NOT HAVE A CONDITION THAT REQUIRES URGENT TREATMENT IN THE EMERGENCY DEPARTMENT. FURTHER EVALUATION AND TREATMENT OF YOUR CONDITION CAN WAIT UNTIL YOU ARE SEEN IN YOUR DOCTORS OFFICE WITHIN THE NEXT 1-2 DAYS. IT IS YOUR RESPONSIBILITY TO M SIDRA AN APPOINTMENT FOR FOLOW-UP CARE. IF YOU HAVE A PRIMARY DOCTOR --you should call your primary doctor and schedule and appointment IF YOU DO NOT HAVE A PRIMARY DOCTOR YOU CAN CALL OUR PHYSICIAN REFERRAL HOTLINE AT . IF YOU CAN NOT AFFORD TO SEE A PHYSICIAN YOU CAN CHOSE FROM THE FOLLOWING [facility] INSTITUTIONS: [facility] [address] [place] [address] [facility] [address] [place] [address] [facility] [address] [place] [address] Additional Instructions: Thank you very much for allowing us to participate in your care. Your health and safety is our top priority at [facility]. It is important to read all discharge instructions and education provided in your discharge packet. *Although the compression deformity to your lower thoracic spine appears to be a a chronic/shoulder fracture, it is important to follow-up with your primary care doctor for further evaluation and care.* Call your primary care doctor TOMORROW for an appointment during the next 2-4 days and bring all the information and medications prescribed. Have prescriptions filled and follow precisely the directions on the label. If the symptoms get worse and your provider is unavailable, return to the Emergency Department immediately. Any numbness tingling worsening pain, return to emergency department. UMESH ELLINGTON NP Jan 10, 2019 20:00 JOSE MERA MD Jan 14, 2019 12:16
== END 2019-01-10 19:08 | disposition home or self-care (01) ==
LOC: FTE 15:24
DX: M54.6 Pain in thoracic spine (principal); I10 Essential (primary) hypertension; I25.10 Atherosclerotic heart disease of native coronary artery without angina pectoris; J44.9 Chronic obstructive pulmonary disease, unspecified; E11.9 Type 2 diabetes mellitus without complications; Z79.4 Long term (current) use of insulin; Z79.82 Long term (current) use of aspirin; Z98.61 Coronary angioplasty status
CPT/HCPCS: 71046; 72072; 72100; 96372; 99284; J2270